=== PATIENT | female | born 1940 | race Caucasian/White ===

== ENCOUNTER → 2018-09-09 15:06 | Outpatient (CLI) | payer MEDICARE, SELFPAY | PROVIDERS: Family Provider Family Medicine; PCP Family Medicine; Referring Provider Family Medicine; Visit Provider Family Medicine | DX: I10 Essential (primary) hypertension (principal); E78.00 Pure hypercholesterolemia, unspecified; E03.9 Hypothyroidism, unspecified | CPT/HCPCS: 36415 ==

== ENCOUNTER → 2019-02-24 | Outpatient (CLI) | payer MEDICARE, SELFPAY ==
--- NOTE | 2019-02-24 10:56 | BI_ITS ---
MAMMOGRAPHY - BILATERAL SCREENING REASON FOR EXAM: Female, 78 years old. Routine annual screening examination. PERTINENT HISTORY: Non-contributory. TECHNIQUE: Digital bilateral breast shanel (3D mammographic acquisition) in the CC and MLO projections. 2-D mediolateral oblique (MLO) and craniocaudad (CC) views of both breasts were obtained. CAD: Full Field Digital Mammography with Computer Added Detection was performed. COMPARISON: Comparison is made with prior examination dated October 10, 2015. FINDINGS: Breast Composition: There are scattered areas of fibroglandular density. There are no dominant masses or suspicious calcifications. Stable small benign-appearing bilateral axillary lymph nodes. No other significant abnormalities are identified. There has been no significant change since the prior study. BI/SCREEN MAMM (CAD) W/SHANEL BILAT IMPRESSION: Stable bilateral screening mammogram. Yearly follow-up mammogram recommended. (A) ASSESSMENT CATEGORY: BIRADS Category 2: Benign. A letter regarding these results will be sent to the patient by the facility within 30 days. Approximately 10% of breast cancers are not detected by mammography. A normal mammogram should not delay biopsy of a clinically suspicious abnormality. [id number] Electronically Signed: Richard Barlow, at 12:41 EDT , Service support ,
== END | disposition home or self-care (01) ==
LOC: OPBI 10:55
PROVIDERS: Family Provider Family Medicine; PCP Family Medicine; Referring Provider Family Medicine; Visit Provider Family Medicine
DX: Z00.00 Encounter for general adult medical examination without abnormal findings (principal); Z12.31 Encounter for screening mammogram for malignant neoplasm of breast
CPT/HCPCS: 77063; 77067

== ENCOUNTER → 2019-04-08 11:33 | Outpatient (CLI) | payer MEDICARE, SELFPAY | PROVIDERS: Family Provider Family Medicine; PCP Family Medicine; Referring Provider Family Medicine; Visit Provider Family Medicine | DX: E78.00 Pure hypercholesterolemia, unspecified (principal); R59.9 Enlarged lymph nodes, unspecified; I10 Essential (primary) hypertension; E03.9 Hypothyroidism, unspecified | CPT/HCPCS: 36415; 80053; 80061; 82043; 82570; 84443 ==

== ENCOUNTER → 2020-01-14 11:30 | Outpatient (CLI) | payer MEDICARE, SELFPAY ==
--- NOTE | 2020-01-14 11:35 | RAD_ITS ---
STUDY: X-RAY - RIGHT HAND REASON FOR EXAM: Female, 79 years old. Polyarthritis TECHNIQUE: Three view(s) of the hand. COMPARISON: None. FINDINGS: Normal radiocarpal articulation. Normal distal radioulnar joint. Normal visualized carpal bones. Normal carpal articulations Normal carpometacarpal articulation of the thumb. Normal second through fifth carpometacarpal joints. Normal metacarpi. Degenerative changes at the metacarpophalangeal joint of the thumb. Normal interphalangeal joint of the thumb. Normal proximal and distal phalanges of the thumb. Normal metacarpophalangeal joints of the second through fifth fingers. Degenerative changes and narrowing and cortical irregularity at the distal interphalangeal joints of the second, third, and fifth fingers. Normal phalanges of the second through fifth fingers. The soft tissue structures are unremarkable. RAD/Hand Min 3 Views IMPRESSION: Degenerative changes with cortical irregularity, more significant at the distal interphalangeal joints of the second, third, and fifth fingers. Electronically Signed: Ray Morales DO at 19:01 EDT Tel [phone], Service support ,
--- NOTE | 2020-01-14 11:35 | RAD_ITS ---
STUDY: X-RAY - LEFT HAND REASON FOR EXAM: Female, 79 years old. Polyarthritis TECHNIQUE: Three view(s) of the hand. COMPARISON: None. FINDINGS: Normal radiocarpal articulation. Normal distal radioulnar joint. Normal visualized carpal bones. Normal carpal articulations There is degenerative arthrosis of the carpometacarpal articulation of the thumb with lateral subluxation of the first metacarpus. Normal second through fifth carpometacarpal joints. Normal metacarpi. Normal metacarpophalangeal joint of the thumb. Normal interphalangeal joint of the thumb. Normal proximal and distal phalanges of the thumb. Normal metacarpophalangeal joints of the second through fifth fingers. There is diffuse articular joint space narrowing of the proximal and distal interphalangeal joints of the second through fifth fingers, but without erosive changes or periarticular soft tissue swelling. Normal phalanges of the second through fifth fingers. Soft tissue swelling overlying the second and third digits. RAD/Hand Min 3 Views IMPRESSION: Degenerative joint disease of the hand and wrist, as described above. Electronically Signed: Richard Barlow, at 8:44 EDT , Service support ,
== END ==
PROVIDERS: PCP Family Medicine; Referring Provider Family Medicine; Visit Provider Family Medicine
DX: M13.0 Polyarthritis, unspecified (principal)
CPT/HCPCS: 36415; 73130; 80053; 86038; 86140; 86431

== ENCOUNTER → 2020-07-26 11:05 | Outpatient (CLI) | payer MEDICARE, SELFPAY | PROVIDERS: PCP Family Medicine; Referring Provider Family Medicine; Visit Provider Family Medicine | DX: E78.00 Pure hypercholesterolemia, unspecified (principal); E03.9 Hypothyroidism, unspecified; I10 Essential (primary) hypertension | CPT/HCPCS: 36415 ==

== ENCOUNTER → 2020-11-14 10:53 | Outpatient (CLI) | payer MEDICARE, SELFPAY ==
[2020-11-14 12:15] LABS: Erythrocyte Sedimentation Rate 9 mm/hr (0-30)
[2020-11-14 12:17] LABS: Hematocrit 44.3 % (37-47); Hemoglobin 14.4 g/dL (12.0-15.0); Mean Corp Hgb Conc 32.5 g/dL (32-36); Mean Corpuscular Hgb 28.1 pg (27.0-32.0); Mean Corpuscular Volume 86.4 fL (81-99); Mean Platelet Vol. 11.5 fl (6.2-12.0); Platelet Count 262 K/mm3 (150-450); RBC Distribution Width SD 44.8 fl (35.1-43.9); Red Blood Count 5.13 M/mm3 (4.2-5.4); White Blood Count 5.7 K/mm3 (4.4-11.0)
[2020-11-14 12:36] LABS: Microalbumin,Random Urine 18.4 mg/L (NO RANGE EST.); Microalbumin:Creatinine Ratio 12.5 mg/g CRE (<30 mg/g CRE)
[2020-11-14 12:46] LABS: ALB/GLOB Ratio 1.1 RATIO (0.9-2.4); AST(SGOT) 20 U/L (15-37); Alanine Aminotransfer ALT/SGPT 29 U/L (13-56); Albumin, Serum 3.7 g/dL (3.2-5.0); Alkaline Phosphatase 92 U/L (45-117); Anion Gap 6 (5-15); BUN 20 mg/dL (7-18); BUN/Creat Ratio 23.7 RATIO (10-20); Calcium,Total 8.8 mg/dL (8.5-10.1); Chloride 109 mmol/L (98-107); Creatinine, Serum 0.84 mg/dL (0.55-1.02); EST Glomerular Filtration Rate 69 mL/min (>60); Est Glom Filt Rate - Afr Amer 84 mL/min (>60); Globulin 3.3 g/dL (2.2-4.2); Glucose 101 mg/dL (74-106); Potassium 3.8 mmol/L (3.5-5.1); Sodium Level 142 mmol/L (136-145)
[2020-11-21 15:58] LABS: Immunoglobulin E 56 IU/mL (6-495)
== END ==
PROVIDERS: PCP Family Medicine; Referring Provider Family Medicine; Visit Provider Family Medicine
DX: R53.83 Other fatigue (principal); J30.2 Other seasonal allergic rhinitis
CPT/HCPCS: 36415; 80053; 82043; 82570; 82785; 84443; 85027; 85652

== ENCOUNTER 2021-09-11 11:59 | Outpatient (CLI) | payer MEDICARE, SELFPAY | END 2021-09-11 23:59 | disposition home or self-care (01) | LOC: MFPLAB 12:00 | PROVIDERS: PCP Family Medicine; Referring Provider Family Medicine; Visit Provider Family Medicine | DX: M62.81 Muscle weakness (generalized) (principal); E66.01 Morbid (severe) obesity due to excess calories; Z68.41 Body mass index [BMI] 40.0-44.9, adult; I10 Essential (primary) hypertension; R73.01 Impaired fasting glucose | CPT/HCPCS: 36415 ==

== ENCOUNTER 2021-10-04 16:05 | Outpatient (CLI) | payer MEDICARE, SELFPAY ==
--- NOTE | 2021-10-04 16:06 | MRI_ITS ---
STUDY: MR Spine Lumbar W/O Contrast 10/04/2021 10:02 PM REASON FOR EXAM: Female, 81 years old. Back pain R quadriceps weakness - subacute, DDD/DJD back. ? L1 impingement Other, Right groin pain and Left posterior hip pain and pain down left leg intermittently. Low back pain. TECHNIQUE: MR Spine Lumbar W/O Contrast Standardized fat and water weighted pulse sequences were obtained. COMPARISON: None FINDINGS: Normal lumbar lordosis. There is no substantial scoliosis. Normal conus medullaris that terminates at the L1. L1-2: Loss of intervertebral disc height. There is endplate spondylosis of the vertebral body. There is bilateral facet arthropathy. Posterior disc herniation. There is bilateral ligamentum flavum thickening. No spinal stenosis. L2-3: Loss of intervertebral disc height. There is endplate spondylosis of the vertebral body. Normal central canal and intervertebral neuroforamina. There is bilateral facet arthropathy. Posterior disc bulge. L3-4: Loss of intervertebral disc height. There is endplate spondylosis of the vertebral body. There is bilateral facet arthropathy. Right neural foraminal stenosis. Compression of exiting nerve roots. Posterior disc herniation. There is bilateral ligamentum flavum thickening. Narrowing of the lateral recess.. L4-5: Loss of intervertebral disc height. There is endplate spondylosis of the vertebral body. There is bilateral facet arthropathy. Left neural foraminal stenosis. Compression of exiting nerve roots. Posterior disc bulge osteophyte complex. Grade 1 anterolisthesis of L4 on L5. Distance measures 6 mm. L5-S1: Loss of intervertebral disc height. There is endplate spondylosis of the vertebral body. There is bilateral facet arthropathy. Bilateral neural foraminal stenosis. Compression of exiting nerve roots. Posterior disc bulge osteophyte complex. Normal visualized sacral ala. Normal visualized paraspinous soft tissue structures. MRI/Spine Lumbar (Routine) IMPRESSION: Multilevel degenerative changes, as described above. Disc herniation at L1-2 and L3-4 as described above. Electronically Signed: Jean-Paul Thornton MD at 22:06 EDT ,
== END 2021-10-04 23:59 | disposition home or self-care (01) ==
LOC: MRI 16:06
PROVIDERS: PCP Family Medicine; Visit Provider Family Medicine
DX: M51.37 Other intervertebral disc degeneration, lumbosacral region (principal); M62.81 Muscle weakness (generalized)
CPT/HCPCS: 72148

== ENCOUNTER → 2021-10-18 | Outpatient (CLI) | payer MEDICARE, SELFPAY ==
[2021-10-18 17:30] LABS: Absolute Neutrophil Count 3.1 X10^3/uL (2.0-7.7); Basophil# 0.09 X10^3/uL; Basophil% 1.3 % (0-1); Eosinophil# 0.42 X10^3/uL; Eosinophils% 6.2 % (0-5); Hemoglobin 13.9 g/dL (12.0-15.0); Lymphocyte % 34.2 % (19-41); Mean Corp Hgb Conc 31.6 g/dL (32-36); Mean Corpuscular Hgb 28.1 pg (27.0-32.0); Mean Corpuscular Volume 88.9 fL (81-99); Mean Platelet Vol. 11.2 fl (6.2-12.0); Monocyte# 0.83 X10^3/uL; Monocyte% 12.3 % (0-10); NRBC Flagged by Analyzer 0 % (0-5); Neutrophil # 3.08 X10^3/uL (2.7-7.7); Neutrophil % 45.9 % (47-70); Platelet Count 301 K/mm3 (150-450); RBC Distribution Width CV 14.3 % (11.6-14.6); RBC Distribution Width SD 46.5 fl (35.1-43.9); Red Blood Count 4.95 M/mm3 (4.2-5.4); White Blood Count 6.7 K/mm3 (4.4-11.0)
[2021-10-18 17:57] LABS: ALB/GLOB Ratio 1.1 RATIO (0.9-2.4); AST(SGOT) 21 U/L (15-37); Alanine Aminotransfer ALT/SGPT 35 U/L (13-56); Albumin, Serum 3.6 g/dL (3.2-5.0); Alkaline Phosphatase 100 U/L (45-117); Anion Gap 6 (5-15); BUN 18 mg/dL (7-18); BUN/Creat Ratio 22.5 RATIO (10-20); Calcium,Total 9.1 mg/dL (8.5-10.1); Chloride 116 mmol/L (98-107); EST Glomerular Filtration Rate 73 mL/min (>60); Est Glom Filt Rate - Afr Amer 89 mL/min (>60); Globulin 3.3 g/dL (2.2-4.2); Glucose 92 mg/dL (74-106); Potassium 3.8 mmol/L (3.5-5.1); Protein, Total 6.9 g/dL (6.4-8.2); Sodium Level 142 mmol/L (136-145)
[2021-10-18 17:58] LABS: Erythrocyte Sedimentation Rate 15 mm/hr (0-30)
== END | disposition home or self-care (01) ==
LOC: MFPLAB 14:25
PROVIDERS: PCP Family Medicine; Referring Provider Family Medicine; Visit Provider Family Medicine
DX: R19.7 Diarrhea, unspecified (principal)
CPT/HCPCS: 36415; 80053; 85025; 85652

== ENCOUNTER → 2021-10-22 | Outpatient (CLI) | payer MEDICARE, SELFPAY ==
[2021-10-29 17:14] LABS: Pancreatic Elastase, Fecal 150 (>200)
[2021-11-02 09:09] LABS: pH, Stool 6.5 (7.0-7.5)
== END | disposition home or self-care (01) ==
LOC: MFPLAB 12:19
PROVIDERS: PCP Family Medicine; Visit Provider Family Medicine
DX: R19.7 Diarrhea, unspecified (principal)
CPT/HCPCS: 82653; 83986; 87177; 87209

== ENCOUNTER → 2021-10-23 | Outpatient (CLI) | payer MEDICARE, SELFPAY | END | disposition home or self-care (01) | LOC: LABSPEC 16:00 | PROVIDERS: PCP Family Medicine; Referring Provider Family Medicine; Visit Provider Family Medicine | DX: R19.7 Diarrhea, unspecified (principal) | CPT/HCPCS: 87177; 87209 ==

== ENCOUNTER → 2021-10-24 | Outpatient (CLI) | payer MEDICARE, SELFPAY | END | disposition home or self-care (01) | LOC: LABSPEC 17:04 | PROVIDERS: PCP Family Medicine; Referring Provider Family Medicine; Visit Provider Family Medicine | DX: R19.7 Diarrhea, unspecified (principal) | CPT/HCPCS: 87177; 87209 ==

== ENCOUNTER 2021-12-27 14:33 | Emergency (ER) | payer MEDICARE, SELFPAY ==
[2021-12-27 14:34] VITALS: BP 158/77; PULSE 88; RESP 16; TEMP 36.4; O2SAT 93; BMI 35.6
[2021-12-27 14:36] VITALS: BP 158/77; PULSE 88; RESP 16; TEMP 36.4; O2SAT 93
--- NOTE | 2021-12-27 15:11 | EKG12_ITS ---
Test Reason : Blood Pressure : / mmHG Vent. Rate : 084 BPM Atrial Rate : 084 BPM P-R Int : 154 ms QRS Dur : 106 ms QT Int : 380 ms P-R-T Axes : 064 -07 044 degrees QTc Int : 449 ms Normal sinus rhythm Minimal voltage criteria for LVH, may be normal variant ( Diaz product ) Poor R wave progression Borderline ECG Confirmed by LARS MONROE, DARCY ([id number]), rewrite editor SHANICE ROSARIO ([id number]) on 12/29/2021 9:28:46 AM Referred By: Confirmed By:DARCY SOUSA MD
[2021-12-27 15:24] LABS: Absolute Lymphocyte Count 1.04 X10^3/uL (0.83-4.51); Absolute Neutrophil Count 6.5 X10^3/uL (2.0-7.7); Basophil# 0.04 X10^3/uL; Basophil% 0.5 % (0-1); Eosinophils% 1.2 % (0-5); Hematocrit 44.8 % (37-47); Hemoglobin 14.7 g/dL (12.0-15.0); Lymphocyte # 1.04 X10^3/ul (0.83-4.51); Lymphocyte % 12.4 % (19-41); Mean Corp Hgb Conc 32.8 g/dL (32-36); Mean Corpuscular Hgb 28.3 pg (27.0-32.0); Mean Corpuscular Volume 86.2 fL (81-99); Mean Platelet Vol. 10.4 fl (6.2-12.0); Monocyte# 0.73 X10^3/uL; Monocyte% 8.7 % (0-10); NRBC Flagged by Analyzer 0 % (0-5); Neutrophil # 6.47 X10^3/uL (2.7-7.7); Neutrophil % 76.7 % (47-70); Platelet Count 285 K/mm3 (150-450); RBC Distribution Width SD 47.4 fl (35.1-43.9); White Blood Count 8.4 K/mm3 (4.4-11.0)
--- NOTE | 2021-12-27 15:26 | EX.ED.DYSGE1 ---
HPI <ARIC Soto - Last Filed: 12/27/21 16:49> History of Present Illness Chief Complaint: Weakness Narrative Narrative: 81-year-old female with PMH of HTN, HLD, hypothyroidism presents with generalized weakness. She states this has been going on for over a month but seemed worse today. She just feels weak all over like she needs to sit and rest and she does not have the energy to do her normal activities. She does not get chest pain or feels short of breath. She has had no recent fever, N/V/D, cough or congestion, abdominal pain, or bladder or bowel symptoms. She has been depressed because she has to sell her house and has nowhere to move. She states she was started on depression medication this week but only took 1 dose because of the side effects. PFSH <ARIC Soto - Last Filed: 12/27/21 16:49> [facility] Medical History (Updated 12/27/21 @ 17:[address] Buzz Rodas MD) DDD (degenerative disc disease) HTN (hypertension) Hypothyroid Home Medications amlodipine 5 mg tablet mg PO 10/31/21 [History Last Taken Unknown] ascorbic acid (vitamin C) 500 mg capsule mg PO 10/31/21 [History Last Taken Unknown] aspirin 81 mg tablet,delayed release 81 mg PO DAILY 10/31/21 [History Last Taken Unknown] cholecalciferol (vitamin D3) 50 mcg (2,000 unit) capsule 50 mcg PO DAILY 10/31/21 [History Last Taken Unknown] coenzyme Q10 100 mg capsule mg PO 10/31/21 [History Last Taken Unknown] levothyroxine 112 mcg tablet mcg PO 10/31/21 [History Last Taken Unknown] rosuvastatin 20 mg tablet mg PO 10/31/21 [History Last Taken Unknown] Allergy/AdvReac Type Severity Reaction Status Date / Time Penicillins Allergy Unknown Unknown Verified 10/31/21 13:03 Social History Smoking Status: Never smoker ROS <ARIC Soto - Last Filed: 12/27/21 16:49> ROS ED ROS Narrative Constitutional: Negative for fever, chills, malaise. Eyes: Negative for visual change. ENT: Negative for sore throat, ear pain, rhinorrhea. CVS: Negative for palpitations, chest pain, syncope. Respiratory: Negative for shortness of breath, cough, orthopnea. GI: Negative for abdominal pain, nausea, vomiting, diarrhea, constipation, melena, hematochezia. : Negative for dysuria, hematuria or frequency. Neuro: Negative for headache, motor/sensory dysfunction. Skin: Negative for rash, abscess, or wound. Musc: Negative for joint pain, swelling, trauma. Heme: Negative for easy bruising, bleeding, lymphadenopathy. EXAM <ARIC Soto - Last Filed: 12/27/21 16:49> Physical Exam Narrative Exam Narrative: CONST: Patient sitting in no acute distress. EYES: Normal inspection. ENT: Normal inspection, moist mucous membranes. NECK: Normal inspection. RESP: No respiratory distress, CTAB. CVS: Regular rate and rhythm, no murmur, no gallop. ABD: Soft and nontender, no guarding or rebound, nondistended. SKIN: Color normal, no rash, warm, dry, intact. EXTREMITIES: Normal appearance, no pedal edema. 5/5 upper and lower extremity strength, 2+ radial and DP pulses NEURO: Oriented x4. PSYCH: Normal affect. Const Vital Signs: 12/27/21 14:34 12/27/21 14:36 12/27/21 15:20 Temperature 97.5 F L 97.5 F L Temperature Source Temporal Temporal Pulse Rate 88 88 Respiratory Rate 16 16 Respiratory Pattern Normal Blood Pressure 158/77 H 158/77 H Blood Pressure Mean 104 104 Pulse Ox 93 93 Oxygen Delivery Method Room Air Room Air <Dr. Buzz Rodas MD - Last Filed: 12/27/21 17:02> Physical Exam Const Vital Signs: 12/27/21 14:34 12/27/21 14:36 12/27/21 15:20 Temperature 97.5 F L 97.5 F L Temperature Source Temporal Temporal Pulse Rate 88 88 Respiratory Rate 16 16 Respiratory Pattern Normal Blood Pressure 158/77 H 158/77 H Blood Pressure Mean 104 104 Pulse Ox 93 93 Oxygen Delivery Method Room Air Room Air MDM <ARIC Soto - Last Filed: 12/27/21 16:49> [facility] MDM Narrative Medical decision making narrative: Patient presented with over a month of generalized weakness with no specific symptoms. States she just does not have energy to do things, feels fatigued, does not want to go outside. She appears well and nontoxic. Afebrile vital signs unremarkable. Medical exam benign. CBC within normal limits, BMP showed potassium of 3.4, otherwise unremarkable. TSH is 0.72 which is normal and means levothyroxine is therapeutic. UA negative. EKG is sinus rhythm with normal intervals and no ischemia. Today there is no metabolic or infectious or cardiac cause of her weakness. As it has been ongoing for over a month and she describes symptoms of anhedonia and states she has been depressed I feel this is a likely possible cause. She was started on depression medication but only took 1 dose due to side effects. I recommended she follow-up with her primary care to discuss alternative medications to try for depression. At this time she is not suicidal or homicidal and there is no indication for admission. Patient was comfortable with this plan and further outpatient work-up and was discharged in stable condition. 1. Generalized weakness I have personally performed a face to face assessment of the patient and have reviewed the RENE Note. I performed a substantive portion of the visit including all aspects of the following. My gross findings include: History is [ ] Exam is [ ] Medical Decision Making [ ] Other additions or changes: [None] Lab Data Labs: Laboratory Results - last 24 hr 12/27/21 12/27/21 12/27/21 15:18 15:18 15:18 WBC 8.4 RBC 5.20 Hgb 14.7 Hct 44.8 MCV 86.2 MCH 28.3 MCHC 32.8 RDW Std Deviation 47.4 H RDW Coeff of Naomie 15.0 H Plt Count 285 MPV 10.4 Immature Gran % (Auto) 0.500 Neut % (Auto) 76.7 H Lymph % (Auto) 12.4 L [place] % (Auto) 8.7 Eos % (Auto) 1.2 Baso % (Auto) 0.5 Absolute Neuts (auto) 6.5 Absolute Lymphs (auto) 1.04 Nucleated RBC % 0 Sodium 140 Potassium 3.4 L Chloride 111 H Carbon Dioxide 21.0 Anion Gap 8 BUN 12 Creatinine 0.83 Estim Creat Clear Calc 45.46 Est GFR (MDRD) Af Amer 85 Est GFR (MDRD) Non-Af 71 BUN/Creatinine Ratio 14.5 Glucose 126 H Calcium 9.6 TSH 0.72 Urine Color Urine Clarity Urine pH Ur Specific Chandler Urine Protein Urine Glucose (UA) Urine Ketones Urine Occult Blood Urine Nitrite Urine Bilirubin Urine Urobilinogen Ur Leukocyte Esterase Urine RBC Urine WBC Ur Squamous Epith Cells Calcium Oxalate Crystal Urine Bacteria Hyaline Casts Fine Granular Casts Coarse Granular Casts RBC Casts Urine Mucus 12/27/21 15:52 WBC RBC Hgb Hct MCV MCH MCHC RDW Std Deviation RDW Coeff of Naomie Plt Count MPV Immature Gran % (Auto) Neut % (Auto) Lymph % (Auto) [place] % (Auto) Eos % (Auto) Baso % (Auto) Absolute Neuts (auto) Absolute Lymphs (auto) Nucleated RBC % Sodium Potassium Chloride Carbon Dioxide Anion Gap BUN Creatinine Estim Creat Clear Calc Est GFR (MDRD) Af Amer Est GFR (MDRD) Non-Af BUN/Creatinine Ratio Glucose Calcium TSH Urine Color Yellow Urine Clarity Clear Urine pH 5.0 Ur Specific Chandler 1.025 Urine Protein 100 H Urine Glucose (UA) Normal Urine Ketones 50 H Urine Occult Blood Negative Urine Nitrite Negative Urine Bilirubin Negative Urine Urobilinogen Normal Ur Leukocyte Esterase 100 H Urine RBC 0 SEEN Urine WBC 0-5 SEEN Ur Squamous Epith Cells 0-5 SEEN Calcium Oxalate Crystal 2+ Urine Bacteria RARE Hyaline Casts 0-5 SEEN Fine Granular Casts 0-5 SEEN Coarse Granular Casts 0-5 SEEN RBC Casts 0-5 SEEN Urine Mucus 0 SEEN Radiography Diagnostic Testing: Clinical Impression(s) from Imaging Studies Chest X-Ray 12/27/21 15:30 IMPRESSION: No radiographic evidence of acute cardiopulmonary disease. Electronically Signed: Derik Spring MD at 16:48 EDT , EKG Initial EKG: Attestation: I personally reviewed and interpreted this EKG as follows: Interpretation: Sinus Rhythm Comments: Normal sinus rhythm at 84 bpm, normal intervals and no ischemic changes <Dr. Buzz Rodas MD - Last Filed: 12/27/21 17:02> [facility] MDM Narrative Medical decision making narrative: Patient presented with over a month of generalized weakness with no specific symptoms. States she just does not have energy to do things, feels fatigued, does not want to go outside. She appears well and nontoxic. Afebrile vital signs unremarkable. Medical exam benign. CBC within normal limits, BMP showed potassium of 3.4, otherwise unremarkable. TSH is 0.72 which is normal and means levothyroxine is therapeutic. UA negative. EKG is sinus rhythm with normal intervals and no ischemia. Today there is no metabolic or infectious or cardiac cause of her weakness. As it has been ongoing for over a month and she describes symptoms of anhedonia and states she has been depressed I feel this is a likely possible cause. She was started on depression medication but only took 1 dose due to side effects. I recommended she follow-up with her primary care to discuss alternative medications to try for depression. At this time she is not suicidal or homicidal and there is no indication for admission. Patient was comfortable with this plan and further outpatient work-up and was discharged in stable condition. 1. Generalized weakness I have personally performed a face to face assessment of the patient and have reviewed the RENE Note. I performed a substantive portion of the visit including all aspects of the following. My gross findings include: History is remarkable for not feeling well, no energy, fatigue, no appetite with weight loss. Patient denies symptoms of hypothyroidism i.e. cold intolerance weight gain constipation etc. She denies constitutional symptoms. She denies headache, ocular, visual or auditory symptoms. She denies cardiac respiratory symptoms. She denies GI symptoms. Denies change in color, consistency or caliber of her stool. She denies urologic symptoms. States she has not had her thyroid level checked in some time. She apparently visits her granddaughters grave daily for the past 2 years. Patient was prescribed antidepressant. However she discontinued on her own accord. Exam is mood and affect are flat to depressed. HEENT exam is unremarkable. Heart lung exams unremarkable. Abdomen is unremarkable. Lower extremity exam is unremarkable. Medical Decision Making this may be due to malignancy, depression, hypothyroidism we will obtain base line blood work for screening. Her work-up is unremarkable. Other additions or changes: Patient was informed that her laboratory studies are unremarkable. She is in agreement this probably is due to her depression. Lab Data Attestation: I reviewed the patient's lab results. Lab results narrative: CBC is unremarkable. There is slight shift with no bandemia. Basic metabolic panel is unremarkable. Potassium is below normal limit at 3.4 and glucose is slightly elevated, 126. Labs: Laboratory Results - last 24 hr 12/27/21 12/27/21 12/27/21 15:18 15:18 15:18 WBC 8.4 RBC 5.20 Hgb 14.7 Hct 44.8 MCV 86.2 MCH 28.3 MCHC 32.8 RDW Std Deviation 47.4 H RDW Coeff of Naomie 15.0 H Plt Count 285 MPV 10.4 Immature Gran % (Auto) 0.500 Neut % (Auto) 76.7 H Lymph % (Auto) 12.4 L [place] % (Auto) 8.7 Eos % (Auto) 1.2 Baso % (Auto) 0.5 Absolute Neuts (auto) 6.5 Absolute Lymphs (auto) 1.04 Nucleated RBC % 0 Sodium 140 Potassium 3.4 L Chloride 111 H Carbon Dioxide 21.0 Anion Gap 8 BUN 12 Creatinine 0.83 Estim Creat Clear Calc 45.46 Est GFR (MDRD) Af Amer 85 Est GFR (MDRD) Non-Af 71 BUN/Creatinine Ratio 14.5 Glucose 126 H Calcium 9.6 TSH 0.72 Urine Color Urine Clarity Urine pH Ur Specific [place] Urine Protein Urine Glucose (UA) Urine Ketones Urine Occult Blood Urine Nitrite Urine Bilirubin Urine Urobilinogen Ur Leukocyte Esterase Urine RBC Urine WBC Ur Squamous Epith Cells Calcium Oxalate Crystal Urine Bacteria Hyaline Casts Fine Granular Casts Coarse Granular Casts RBC Casts Urine Mucus 12/27/21 15:52 WBC RBC Hgb Hct MCV MCH MCHC RDW Std Deviation RDW Coeff of Naomie Plt Count MPV Immature Gran % (Auto) Neut % (Auto) Lymph % (Auto) [place] % (Auto) Eos % (Auto) Baso % (Auto) Absolute Neuts (auto) Absolute Lymphs (auto) Nucleated RBC % Sodium Potassium Chloride Carbon Dioxide Anion Gap BUN Creatinine Estim Creat Clear Calc Est GFR (MDRD) Af Amer Est GFR (MDRD) Non-Af BUN/Creatinine Ratio Glucose Calcium TSH Urine Color Yellow Urine Clarity Clear Urine pH 5.0 Ur Specific [place] 1.025 Urine Protein 100 H Urine Glucose (UA) Normal Urine Ketones 50 H Urine Occult Blood Negative Urine Nitrite Negative Urine Bilirubin Negative Urine Urobilinogen Normal Ur Leukocyte Esterase 100 H Urine RBC 0 SEEN Urine WBC 0-5 SEEN Ur Squamous Epith Cells 0-5 SEEN Calcium Oxalate Crystal 2+ Urine Bacteria RARE Hyaline Casts 0-5 SEEN Fine Granular Casts 0-5 SEEN Coarse Granular Casts 0-5 SEEN RBC Casts 0-5 SEEN Urine Mucus 0 SEEN Radiography Chest X-Ray - ED: 1 View and Read by ED Physician (Single view chest x-ray was independently interpreted by me at 1556 as unremarkable. Cardiac silhouette size unremarkable. Limited in story volume. Lung parenchyma is unremarkable. Perihilar region is unremarkable. Osseous structures reveal no acute process.) Diagnostic Testing: Clinical Impression(s) from Imaging Studies Chest X-Ray 12/27/21 15:30 IMPRESSION: No radiographic evidence of acute cardiopulmonary disease. Electronically Signed: Derik Spring MD at 16:48 EDT , Discharge Plan Triage Chief Complaint: Weakness ED Midlevel Provider: Steffanie Robin ED Provider: Buzz Rodas Dx/Rx/DC Orders Clinical Impression: Weakness, Depression Instructions: ED Weakness (Uncertain Cause) Prescriptions: No Action levothyroxine 112 mcg tablet PO rosuvastatin 20 mg tablet PO amlodipine 5 mg tablet PO coenzyme Q10 100 mg capsule PO aspirin 81 mg tablet,delayed release (DR/EC) 81 mg PO DAILY ascorbic acid (vitamin C) 500 mg capsule PO cholecalciferol (vitamin D3) 50 mcg (2,000 unit) capsule 50 mcg PO DAILY Primary Care Provider: Dylan Renteria Referrals: Dylan Renteria MD [Primary Care Provider] - Activity Restrictions/Additional Instructions: Your blood work here looked normal. Your EKG showed a normal heart rhythm. We have not found a clear cause for your generalized weakness. However you reported stress and lack of interest in doing things and this may be from depression. I would reach out to your family doctor to discuss trying a new medication for depression since you had a side effect from the one you already tried. If any symptoms worsen come back to the ER. Disposition Disposition: Home, Self Care
--- NOTE | 2021-12-27 15:30 | RAD_ITS ---
EXAM: XR CHEST, 1 VIEW CLINICAL INDICATION: weakness TECHNIQUE: Frontal view of the chest. This report was created using [employer] report generation technology. COMPARISON: None. FINDINGS: LUNGS AND PLEURAL SPACES: Unremarkable. No consolidation or edema. No pneumothorax. No effusion. HEART: Unremarkable. Cardiac silhouette not enlarged. MEDIASTINUM: Central airways and mediastinal contour are unremarkable. BONES/JOINTS: Unremarkable. SOFT TISSUES: Unremarkable. RAD/Chest 1 View (Portable) IMPRESSION: No radiographic evidence of acute cardiopulmonary disease. Electronically Signed: Derik Spring MD at 16:48 EDT ,
[2021-12-27 15:50] LABS: Anion Gap 8 (5-15); BUN 12 mg/dL (7-18); BUN/Creat Ratio 14.5 RATIO (10-20); Calcium,Total 9.6 mg/dL (8.5-10.1); Chloride 111 mmol/L (98-107); Creatinine, Serum 0.83 mg/dL (0.55-1.02); EST Glomerular Filtration Rate 71 mL/min (>60); Est Glom Filt Rate - Afr Amer 85 mL/min (>60); Estimated Creatinine Clearance 45.46 ml/min; Glucose 126 mg/dL (74-106); Potassium 3.4 mmol/L (3.5-5.1); Sodium Level 140 mmol/L (136-145)
[2021-12-27 15:56] LABS: Mucous, Urine 0 SEEN /hpf (<or=2+); Red Blood Cells-Urine 0 SEEN /hpf (0-5)
[2021-12-27 16:10] LABS: Glucose, Dipstick Normal (Normal); Ketone-Dipstick 50 mg/dl (Negative); Leukocyte Esterase-Dipstick 100 /ul (Negative); Nitrite-Dipstick Negative (Negative); Occult Blood-Urine Negative /ul (Negative); Protein-Dipstick 100 mg/dl (Negative); Specific Gravity, Urine 1.025 (1.002-1.030); Urine Bilirubin Dipstick Negative (Negative); Urine Urobilinogen Normal (Normal)
[2021-12-27 16:19] LABS: Color, Urine Yellow (Yellow); Urine Clarity Clear (Clear)
[2021-12-27 16:24] LABS: Bacteria RARE /hpf (None Seen); Calcium Oxalate Crystals Ur 2+ /hpf (<or=2+); Squamous Epithelial Cells - UA 0-5 SEEN /hpf (5-10); White Blood Cells 0-5 SEEN /hpf (0-5)
[2021-12-27 16:25] LABS: Hyaline Cast 0-5 SEEN /lpf (0-5)
[2021-12-27 16:26] LABS: Coarse Granular Cast 0-5 SEEN /lpf (0-5 /lpf); Fine Granular Cast- Urine 0-5 SEEN /lpf (0-5); Red Cell Cast 0-5 SEEN /lpf (None Seen)
[2021-12-27 16:39] LABS: Thyroid Stim Hormone (TSH) 0.72 uIU/mL (0.358-3.74)
[2021-12-27 17:00] VITALS: BP 132/76; PULSE 88; RESP 14; TEMP 37.2; O2SAT 99
== END 2021-12-27 17:45 | disposition home or self-care (01) ==
PROVIDERS: Physician Assistant; Emergency Provider Emergency Medicine; PCP Family Medicine; Visit Provider Emergency Medicine
DX: R53.1 Weakness (principal); F32.A Depression, unspecified; E78.5 Hyperlipidemia, unspecified; I10 Essential (primary) hypertension; E03.9 Hypothyroidism, unspecified; Z79.899 Other long term (current) drug therapy; Z79.82 Long term (current) use of aspirin
CPT/HCPCS: 71045; 80048; 81001; 84443; 85025; 93005; 99283

== ENCOUNTER 2021-12-30 13:42 | Emergency (ER) | payer MEDICARE, SELFPAY ==
[2021-12-30 13:43] VITALS: BP 168/81; PULSE 87; RESP 16; TEMP 36.7; O2SAT 94; BMI 35.4
--- NOTE | 2021-12-30 14:02 | EKG12_ITS ---
Test Reason : WEAKNESS Blood Pressure : / mmHG Vent. Rate : 077 BPM Atrial Rate : 077 BPM P-R Int : 166 ms QRS Dur : 110 ms QT Int : 368 ms P-R-T Axes : 050 -16 025 degrees QTc Int : 416 ms Sinus rhythm with occasional Premature ventricular complexes Moderate voltage criteria for LVH, may be normal variant ( R in aVL , Diaz product ) Borderline ECG Confirmed by YULISSA MONROE, LYNDSAY ([id number]), sports editor SHANICE ROSARIO ([id number]) on 01/01/2022 8:46:50 AM Referred By: WILLIAMS Confirmed By:LYNDSAY DUENAS MD
--- NOTE | 2021-12-30 14:02 | CT_ITS ---
STUDY: CT BRAIN WITHOUT CONTRAST REASON FOR EXAM: Female, 81 years old. headache TECHNIQUE: Transaxial CT imaging of the brain was performed without administration of intravenous contrast material. Individualized dose optimization techniques were used for this CT. COMPARISON: None FINDINGS: Normal calvarium. Normal soft tissues. Normal size ventricles and extra-axial spaces for the patient''s age. There are areas of decreased attenuation within the white matter tracts of the supratentorial brain, consistent with microvascular disease changes. Normal basal ganglia and thalami. Normal brainstem. Normal cerebellum. There is no intracranial hemorrhage. There are no findings of an acute ischemic infarction. Normal visualized paranasal sinuses. ASPECTS 10 CT/Brain/Head without Contrast IMPRESSION: There are no acute intracranial findings. Electronically Signed: Jean-Paul Thornton MD at 14:45 EDT ,
--- NOTE | 2021-12-30 14:04 | EDS_ITS ---
HPI History of Present Illness Chief Complaint: Weakness Informant: patient and family Narrative Narrative: Patient complains of generalized decreased energy. Its not really focal weakness. She states she is really not going downstairs to do her laundry but her leg seems strong. Her energy level is down. She is kind of lost interest in her appetite and food although she is able to eat and drink. She has never had nausea vomiting. She has had some intermittent diarrhea but this is been worked up by her primary physician and is no different. She did have some back pain issues that had injections. But she states that seem to get better. She has not had fevers. No known recent vaccines or COVID. She did see her doctor and was started on duloxetine for possible depression but she is not sure why. When her daughter entered the room we get more history. She said they are coming up on the 2-year anniversary of the of the patient's granddaughter in an auto accident. When they talk about this the patient starts crying. She evidently was placed on something for depression back then but never took it. The patient is also worried about selling her house. She has 3 acres with a pool and wants everything to be perfect. She is not sure if she wants to sell. This also brings tears to her eyes. I think that some of her symptoms may be due to depression. [facility] Medical History DDD (degenerative disc disease) HTN (hypertension) Hypothyroid Home Medications amlodipine 5 mg tablet mg PO 10/31/21 [History Last Taken Unknown] ascorbic acid (vitamin C) 500 mg capsule mg PO 10/31/21 [History Last Taken Unknown] aspirin 81 mg tablet,delayed release 81 mg PO DAILY 10/31/21 [History Last Taken Unknown] cholecalciferol (vitamin D3) 50 mcg (2,000 unit) capsule 50 mcg PO DAILY 10/31/21 [History Last Taken Unknown] coenzyme Q10 100 mg capsule mg PO 10/31/21 [History Last Taken Unknown] levothyroxine 112 mcg tablet mcg PO 10/31/21 [History Last Taken Unknown] rosuvastatin 20 mg tablet mg PO 10/31/21 [History Last Taken Unknown] potassium chloride 20 mEq tablet,extended release 20 meq PO DAILY #7 tabs 12/30/21 [Rx Last Taken Unknown] Allergy/AdvReac Type Severity Reaction Status Date / Time Penicillins Allergy Unknown Unknown Verified 12/30/21 13:42 Social History Smoking Status: Never smoker ROS ROS ED Constitutional Constitutional ED: Denies chills, fever(s), sweats or weight loss Eyes Eyes: Denies change in vision ENT ENT ED: Denies rhinorrhea or sore throat Cardiovascular Cardiovascular: Denies chest pain or racing heartbeat Respiratory/Chest Respiratory/Chest: Denies cough, dyspnea or sputum Gastrointestinal Gastrointestinal: Denies diarrhea, nausea or vomiting Genitourinary Genitourinary ED: Denies dysuria or hematuria Musculoskeletal Musculoskeletal: Denies back pain or neck pain Integumentary Denies rash Neurologic Neurologic: Reports other Details: The daughter is concerned that mom is having headaches. The mom denies she is having headaches. She states sometimes her head just feels funny but its not at all painful. The daughter is concerned that she might have bleeding in her head because that is evidently what the patient's father of. ; Denies headache(s) Psychiatric Psychiatric: Reports depression; Denies suicidal ideation Endocrine Endocrinology: Denies polydipsia or polyuria Hematologic/Lymphatic Hematologic/Lymphatic: Denies easy bleeding or easy bruising Allergic/Immunologic Allergic/Immunologic ED: Denies urticaria EXAM Physical Exam Const Vital Signs: 12/30/21 13:43 12/30/21 14:07 12/30/21 16:15 Temperature 98.0 F Temperature Source Temporal Pulse Rate 87 78 Respiratory Rate 16 14 Respiratory Effort Normal Respiratory Pattern Normal Blood Pressure 168/81 H 134/78 H Blood Pressure Mean 110 96 Pulse Ox 94 98 Oxygen Delivery Method Room Air Room Air Positive well nourished and well developed; Negative for unkempt General Appearance ED: well developed and NAD; Negative for unkempt or pallor HEENT Reports moist mucous membranes Negative for trauma or tenderness Eyes PERRL and EOMs intact bilaterally General Eye ED: Negative for pale conjunctiva or scleral icterus Neck no lymphadenopathy and supple Chest Wall inspection of chest normal Resp normal respiratory effort and clear to auscultation bilaterally Auscultation: Negative for rales, rhonchi, wheezes or diminished lung sounds Cardio regular rate, regular rhythm and no murmurs GI normal to inspection, nondistended, normoactive bowel sounds, non-tender and no masses Back/Spine no CVA tenderness Extremity normal to inspection Neuro oriented x3 Sensorium / Orientation: alert; Negative for orientation impaired, lethargic or stuporous Psych Psych Narrative: Mildly flat affect. Occasionally tearful as above Appearance: Negative for unkempt Skin no rashes or lesions noted General Skin Exam: Negative for jaundice or pallor MDM MDM MDM Narrative Medical decision making narrative: Patient CBC is normal. Electrolytes show mildly low potassium. This is replac ed. Glucose is minimally up at 141. I do not think either of these are likely to explain all her symptoms. However, we will get her on potassium replacement for a few days. Urine had some white cells but it was clear and rare bacteria and no UTI symptoms. I will send this for culture but not treated at this time. I explained to the patient that I do not see any physical cause for her overall sense of generalized weakness. We did have crisis see her. They did not have any specific advice. Patient feels that this is physical and not mental or emotional. My concern is that she has 2 major life event issues that are occurring now and stress could certainly cause this. She was just started on antidepressant. But she still needs follow-up. There may be autoimmune or other issues that are contributing to this that I cannot sort out in the emergency department. Lab Data Attestation: I reviewed the patient's lab results. Labs: Laboratory Results - last 24 hr 12/30/21 12/30/21 12/30/21 14:05 14:05 14:05 WBC 8.4 RBC 5.16 Hgb 14.7 Hct 44.7 MCV 86.6 MCH 28.5 MCHC 32.9 RDW Std Deviation 48.8 H RDW Coeff of Naomie 15.5 H Plt Count 308 MPV 10.9 Immature Gran % (Auto) 0.600 Neut % (Auto) 73.1 H Lymph % (Auto) 14.7 L [place] % (Auto) 9.8 Eos % (Auto) 0.8 Baso % (Auto) 1.0 Absolute Neuts (auto) 6.1 Absolute Lymphs (auto) 1.23 Nucleated RBC % 0 Sodium 142 Potassium 3.2 L Chloride 110 H Carbon Dioxide 24.0 Anion Gap 8 BUN 15 Creatinine 0.88 Estim Creat Clear Calc 42.88 Est GFR (MDRD) Af Amer 80 Est GFR (MDRD) Non-Af 66 BUN/Creatinine Ratio 17.1 Glucose 141 H Calcium 9.8 Total Bilirubin 0.40 AST 16 ALT 41 Alkaline Phosphatase 89 Troponin I High Sens 9 Total Protein 6.5 Albumin 3.5 Globulin 3.0 Albumin/Globulin Ratio 1.2 Urine Color Urine Clarity Urine pH Ur Specific [place] Urine Protein Urine Glucose (UA) Urine Ketones Urine Occult Blood Urine Nitrite Urine Bilirubin Urine Urobilinogen Ur Leukocyte Esterase Urine RBC Urine WBC Ur Squamous Epith Cells Uric Acid Crystals Urine Bacteria Urine Mucus Urine Opiates Screen Urine Methadone Screen Ur Barbiturates Screen Ur Phencyclidine Scrn Ur Amphetamines Screen MDMA (Ecstasy) Screen U Benzodiazepines Scrn Urine Cocaine Screen U Cannabinoids Screen Ur Drug Screen Comment Ethyl Alcohol 6.0 COVID-19 (FAR[place]) 12/30/21 12/30/21 12/30/21 14:10 15:00 15:00 WBC RBC Hgb Hct MCV MCH MCHC RDW Std Deviation RDW Coeff of Naomie Plt Count MPV Immature Gran % (Auto) Neut % (Auto) Lymph % (Auto) [place] % (Auto) Eos % (Auto) Baso % (Auto) Absolute Neuts (auto) Absolute Lymphs (auto) Nucleated RBC % Sodium Potassium Chloride Carbon Dioxide Anion Gap BUN Creatinine Estim Creat Clear Calc Est GFR (MDRD) Af Amer Est GFR (MDRD) Non-Af BUN/Creatinine Ratio Glucose Calcium Total Bilirubin AST ALT Alkaline Phosphatase Troponin I High Sens Total Protein Albumin Globulin Albumin/Globulin Ratio Urine Color Yellow Urine Clarity Clear Urine pH 6.0 Ur Specific [place] 1.015 Urine Protein 15 H Urine Glucose (UA) Normal Urine Ketones Negative Urine Occult Blood Negative Urine Nitrite Negative Urine Bilirubin Negative Urine Urobilinogen Normal Ur Leukocyte Esterase 500 H Urine RBC 0 SEEN Urine WBC 10-25 SEEN Ur Squamous Epith Cells 0 SEEN Uric Acid Crystals 0 SEEN Urine Bacteria RARE Urine Mucus 0 SEEN Urine Opiates Screen NEGATIVE Urine Methadone Screen NEGATIVE Ur Barbiturates Screen NEGATIVE Ur Phencyclidine Scrn NEGATIVE Ur Amphetamines Screen NEGATIVE MDMA (Ecstasy) Screen NEGATIVE U Benzodiazepines Scrn NEGATIVE Urine Cocaine Screen NEGATIVE U Cannabinoids Screen NEGATIVE Ur Drug Screen Comment Ethyl Alcohol COVID-19 (FAR[place]) Not Detected Radiography Diagnostic Testing: Clinical Impression(s) from Imaging Studies Brain CT 12/30/21 14:02 IMPRESSION: There are no acute intracranial findings. Electronically Signed: Jean-Paul Thornton MD at 14:45 EDT , EKG Initial EKG: Comments: EKG done for generalized weakness read by me shows sinus rhythm with overall rate of 77. Occasional PVCs. No acute ST elevation or depression. WI interval, QRS duration and QTC normal. EKG is similar to 27 December of this year Discharge Plan Triage Chief Complaint: Weakness ED Provider: Al Brown Dx/Rx/DC Orders Clinical Impression: Weakness Instructions: ED Weakness (Uncertain Cause) Prescriptions: New potassium chloride 20 mEq tablet extended release 20 meq PO DAILY Qty: 7 0RF No Action levothyroxine 112 mcg tablet PO rosuvastatin 20 mg tablet PO amlodipine 5 mg tablet PO coenzyme Q10 100 mg capsule PO aspirin 81 mg tablet,delayed release (DR/EC) 81 mg PO DAILY ascorbic acid (vitamin C) 500 mg capsule PO cholecalciferol (vitamin D3) 50 mcg (2,000 unit) capsule 50 mcg PO DAILY Primary Care Provider: Dylan Renteria Referrals: Dylan Renteria MD [Primary Care Provider] - As soon as possible Disposition Disposition: Home, Self Care
[2021-12-30 14:21] LABS: Absolute Lymphocyte Count 1.23 X10^3/uL (0.83-4.51); Absolute Neutrophil Count 6.1 X10^3/uL (2.0-7.7); Basophil# 0.08 X10^3/uL; Eosinophil# 0.07 X10^3/uL; Eosinophils% 0.8 % (0-5); Hematocrit 44.7 % (37-47); Hemoglobin 14.7 g/dL (12.0-15.0); Lymphocyte # 1.23 X10^3/ul (0.83-4.51); Lymphocyte % 14.7 % (19-41); Mean Corp Hgb Conc 32.9 g/dL (32-36); Mean Corpuscular Hgb 28.5 pg (27.0-32.0); Mean Corpuscular Volume 86.6 fL (81-99); Mean Platelet Vol. 10.9 fl (6.2-12.0); Monocyte# 0.82 X10^3/uL; Monocyte% 9.8 % (0-10); NRBC Flagged by Analyzer 0 % (0-5); Neutrophil # 6.13 X10^3/uL (2.7-7.7); Neutrophil % 73.1 % (47-70); Platelet Count 308 K/mm3 (150-450); RBC Distribution Width CV 15.5 % (11.6-14.6); RBC Distribution Width SD 48.8 fl (35.1-43.9); Red Blood Count 5.16 M/mm3 (4.2-5.4); White Blood Count 8.4 K/mm3 (4.4-11.0)
[2021-12-30 14:35] LABS: ALB/GLOB Ratio 1.2 RATIO (0.9-2.4); AST(SGOT) 16 U/L (15-37); Alanine Aminotransfer ALT/SGPT 41 U/L (13-56); Albumin, Serum 3.5 g/dL (3.2-5.0); Alkaline Phosphatase 89 U/L (45-117); Anion Gap 8 (5-15); BUN 15 mg/dL (7-18); BUN/Creat Ratio 17.1 RATIO (10-20); Calcium,Total 9.8 mg/dL (8.5-10.1); Chloride 110 mmol/L (98-107); Creatinine, Serum 0.88 mg/dL (0.55-1.02); EST Glomerular Filtration Rate 66 mL/min (>60); Est Glom Filt Rate - Afr Amer 80 mL/min (>60); Estimated Creatinine Clearance 42.88 ml/min; Glucose 141 mg/dL (74-106); Potassium 3.2 mmol/L (3.5-5.1); Protein, Total 6.5 g/dL (6.4-8.2); Sodium Level 142 mmol/L (136-145); Troponin-I HS 9 pg/mL (3.0-54.0)
[2021-12-30 15:06] LABS: Mucous, Urine 0 SEEN /hpf (<or=2+); Red Blood Cells-Urine 0 SEEN /hpf (0-5); Squamous Epithelial Cells - UA 0 SEEN /hpf (5-10)
[2021-12-30 15:16] LABS: Color, Urine Yellow (Yellow); Glucose, Dipstick Normal (Normal); Ketone-Dipstick Negative (Negative); Leukocyte Esterase-Dipstick 500 /ul (Negative); Nitrite-Dipstick Negative (Negative); Occult Blood-Urine Negative /ul (Negative); Protein-Dipstick 15 mg/dl (Negative); Specific Gravity, Urine 1.015 (1.002-1.030); Urine Bilirubin Dipstick Negative (Negative); Urine Clarity Clear (Clear); Urine Urobilinogen Normal (Normal)
[2021-12-30] MEDS: Potassium Chloride Oral Tablet 20 MEQ PO (15:16)
[2021-12-30 15:28] LABS: Amphetamine Urine VISTA NEGATIVE (<1000 ng/mL); Barbiturate Urine VISTA NEGATIVE (< 200 ng/mL); Benzodiazepine Urine VISTA NEGATIVE (< 200 ng/mL); Cocaine Urine VISTA NEGATIVE (< 300 ng/mL); Ecstacy Urine VISTA NEGATIVE (< 500 ng/mL); Methadone Urine VISTA NEGATIVE (< 300 ng/mL); PCP Urine VISTA NEGATIVE (< 25 ng/mL); THC Urine VISTA NEGATIVE (< 50 ng/mL); Vista UDS pH Range 6
[2021-12-30 15:31] LABS: Bacteria RARE /hpf (None Seen); Uric Acid Crystals Ur 0 SEEN /hpf (<or=1+); White Blood Cells 10-25 SEEN /hpf (0-5)
--- NOTE | 2021-12-30 15:43 | NURSING ---
faxed chart to crisis
[2021-12-30 16:15] VITALS: BP 134/78; PULSE 78; RESP 14; O2SAT 98
--- NOTE | 2021-12-30 16:20 | NURSING ---
CRISIS IN ROOM
--- NOTE | 2021-12-30 17:16 | ED.RN ---
per crisis pt denies si and help. per family and pt s/s just started in the last 5 days.
[2021-12-30 17:56] VITALS: PULSE 80; RESP 15; O2SAT 97
== END 2021-12-30 17:57 | disposition home or self-care (01) ==
PROVIDERS: Emergency Provider Emergency Medicine; PCP Family Medicine; Visit Provider Emergency Medicine
DX: R53.1 Weakness (principal); I10 Essential (primary) hypertension; F32.A Depression, unspecified; E03.9 Hypothyroidism, unspecified; M19.90 Unspecified osteoarthritis, unspecified site; Z79.82 Long term (current) use of aspirin; Z79.899 Other long term (current) drug therapy; I49.3 Ventricular premature depolarization; R19.7 Diarrhea, unspecified
CPT/HCPCS: 70450; 80053; 80307; 81001; 82077; 84484; 85025; 87086; 87088; 87635; 93005; 96360; 96361; 99283; J7030; A4216; U0003; U0005

== ENCOUNTER → 2021-12-31 | Outpatient (CLI) | payer MEDICARE, SELFPAY ==
[2021-12-31 12:35] LABS: Lyme Ab Screen Interpretation REF LAB
[2021-12-31 15:29] LABS: CRP < 2.90 mg/L (0.0-3.0); Rheumatoid Factor < 10.0 IU/mL (<15)
[2022-01-02 16:16] LABS: ANTINUCLEAR ANTIBODIES DIRECT Negative (Negative)
[2022-01-02 16:57] LABS: Lyme Scn Total Ab w/Rflx Negative (Negative)
== END | disposition home or self-care (01) ==
PROVIDERS: PCP Family Medicine; Referring Provider Family Medicine; Visit Provider Family Medicine
DX: R53.1 Weakness (principal)
CPT/HCPCS: 36415; 86038; 86140; 86431; 86618

== ENCOUNTER → 2022-01-03 | Outpatient (CLI) | payer MEDICARE, SELFPAY | END | disposition home or self-care (01) | LOC: MTLAB 12:42 | PROVIDERS: PCP Family Medicine; Referring Provider Family Medicine; Visit Provider Family Medicine | DX: R78.0 Finding of alcohol in blood (principal) | CPT/HCPCS: 36415; 82077 ==

== ENCOUNTER 2022-01-07 12:11 | Emergency (ER) | payer MEDICARE, SELFPAY ==
[2022-01-07 12:20] VITALS: BP 151/77; PULSE 78; RESP 18; TEMP 36.8; O2SAT 96; BMI 35.4
--- NOTE | 2022-01-07 13:28 | EKG12_ITS ---
Test Reason : weakness Blood Pressure : / mmHG Vent. Rate : 069 BPM Atrial Rate : 069 BPM P-R Int : 160 ms QRS Dur : 102 ms QT Int : 390 ms P-R-T Axes : 065 000 036 degrees QTc Int : 417 ms Normal sinus rhythm Normal ECG Confirmed by LARS MONROE, DARCY ([id number]), newspaper photo editor [address] MCKINNEY ([id number]) on 01/08/2022 10:29:58 AM Referred By: Pineda Confirmed By:DARCY SOUSA MD
--- NOTE | 2022-01-07 13:31 | EX.ED.DYSGE1 ---
HPI History of Present Illness Chief Complaint: Weakness Narrative Narrative: 81-year-old female presenting with generalized fatigue. She was here 12/27/2021 and 12/30/2021. She follow-up with her primary care physician on 01/03/2022. All of her blood work has been fairly unremarkable. They have tested her TSH and this is normal. Her primary care physician currently treated her with 7 days of potassium because her potassium was low however it was only 3.2. Patient does not have any chest pain, shortness of breath, fever, chills. She has no nausea or vomiting. She does admit to some diarrhea. Patient does not have a headache or visual complaints. She states that she is just so tired that she cannot stand long enough to make her own food. She has decreased p.o. intake because of this. [facility] Medical History DDD (degenerative disc disease) HTN (hypertension) Hypothyroid Home Medications amlodipine 5 mg tablet mg PO 10/31/21 [History Last Taken Unknown] ascorbic acid (vitamin C) 500 mg capsule mg PO 10/31/21 [History Last Taken Unknown] aspirin 81 mg tablet,delayed release 81 mg PO DAILY 10/31/21 [History Last Taken Unknown] cholecalciferol (vitamin D3) 50 mcg (2,000 unit) capsule 50 mcg PO DAILY 10/31/21 [History Last Taken Unknown] coenzyme Q10 100 mg capsule mg PO 10/31/21 [History Last Taken Unknown] levothyroxine 112 mcg tablet mcg PO 10/31/21 [History Last Taken Unknown] rosuvastatin 20 mg tablet mg PO 10/31/21 [History Last Taken Unknown] potassium chloride 20 mEq tablet,extended release 20 meq PO DAILY #7 tabs 12/30/21 [Rx Last Taken Unknown] Allergy/AdvReac Type Severity Reaction Status Date / Time Penicillins Allergy Unknown Unknown Verified 01/07/22 12:22 Social History Smoking Status: Never smoker EXAM Physical Exam Const Vital Signs: 01/07/22 12:20 01/07/22 12:28 01/07/22 14:22 Temperature 98.2 F Temperature Source Temporal Pulse Rate 78 73 Respiratory Rate 18 18 Respiratory Effort Normal Respiratory Pattern Normal Blood Pressure 151/77 H 133/60 H Blood Pressure Mean 101 84 Pulse Ox 96 97 Oxygen Delivery Method Room Air Room Air Positive well nourished General Appearance ED: NAD; Negative for pallor HEENT Reports moist mucous membranes Negative for trauma Eyes PERRL and EOMs intact bilaterally General Eye ED: Negative for pale conjunctiva or scleral icterus Chest Wall inspection of chest normal and palpation of chest normal Resp normal respiratory effort and clear to auscultation bilaterally Auscultation: Negative for rales, rhonchi or wheezes Cardio regular rate and regular rhythm GI normal to inspection, nondistended, normoactive bowel sounds Neuro oriented x3 and CN's II-XII intact bilaterally Sensorium / Orientation: alert Motor Exam: strength 5/5 throughout Psych mental status grossly normal Skin no rashes or lesions noted and skin turgor normal General Skin Exam: Negative for jaundice or pallor MDM MDM MDM Narrative Medical decision making narrative: Patient presenting for weakness and this is now her fourth evaluation. I had a long talk with her regarding whether or not she wanted to be admitted for rehab or assisted living because she has been here several times and feels generally fatigued. She does not want this. I spoke with social work who went and spoke with her and they state that she does not want any assistance at home. Blood work is obtained again today and her white blood cell count was 4.1 without lymphopenia. Renal function and electrolytes are normal. High-sensitivity troponin is 10. EKG on my interpretation shows a sinus rhythm with a ventricular rate of 65 bpm. EtOH negative. LFTs are normal. Patient tested positive for COVID-19 today. It is hard to determine when she actually started having the symptoms because the weakness has been going on for weeks. The patient has normal vital signs and normal lab work with exception of the leukopenia. For now I do not think she needs Paxlovid. Patient feels well enough to go home. She states she can care for herself. Return precautions discussed. Impression: 1 COVID-19 2. Leukopenia 3. Generalized weakness Lab Data Attestation: I reviewed the patient's lab results. Labs: Laboratory Results - last 24 hr 01/07/22 01/07/22 01/07/22 13:43 13:43 13:43 WBC 4.1 L RBC 4.98 Hgb 14.0 Hct 43.8 MCV 88.0 MCH 28.1 MCHC 32.0 RDW Std Deviation 50.6 H RDW Coeff of Naomie 15.6 H Plt Count 198 MPV 11.4 Immature Gran % (Auto) 0.200 Neut % (Auto) 66.5 Lymph % (Auto) 20.2 [place] % (Auto) 12.4 H Eos % (Auto) 0.2 Baso % (Auto) 0.5 Absolute Neuts (auto) 2.7 Absolute Lymphs (auto) 0.83 Nucleated RBC % 0 Sodium 140 Potassium 3.6 Chloride 111 H Carbon Dioxide 21.0 Anion Gap 8 BUN 15 Creatinine 0.78 Estim Creat Clear Calc 37.74 Est GFR (MDRD) Af Amer 91 Est GFR (MDRD) Non-Af 76 BUN/Creatinine Ratio 19.2 Glucose 115 H Calcium 8.8 Total Bilirubin 0.40 AST 25 ALT 33 Alkaline Phosphatase 86 Troponin I High Sens 10 Total Protein 6.2 L Albumin 3.1 L Globulin 3.1 Albumin/Globulin Ratio 1.0 Ethyl Alcohol < 3.0 Radiography Diagnostic Testing: Clinical Impression(s) from Imaging Studies Chest X-Ray 01/07/22 13:50 IMPRESSION: No acute abnormality is seen. Electronically Signed: Richard Barlow MD at 14:08 EDT , Discharge Plan Triage Chief Complaint: Weakness ED Provider: Dwain Sung Dx/Rx/DC Orders Prescriptions: No Action levothyroxine 112 mcg tablet PO rosuvastatin 20 mg tablet PO amlodipine 5 mg tablet PO coenzyme Q10 100 mg capsule PO aspirin 81 mg tablet,delayed release (DR/EC) 81 mg PO DAILY ascorbic acid (vitamin C) 500 mg capsule PO cholecalciferol (vitamin D3) 50 mcg (2,000 unit) capsule 50 mcg PO DAILY potassium chloride 20 mEq tablet extended release 20 meq PO DAILY Qty: 7 0RF Primary Care Provider: Dylan Renteria Referrals: Dylan Renteria MD [Primary Care Provider] -
--- NOTE | 2022-01-07 13:50 | RAD_ITS ---
STUDY: X-RAY CHEST REASON FOR EXAM: Female, 81 years old. Weakness TECHNIQUE: Single AP portable view of the chest. COMPARISON: Comparison is made with prior study dated 12/27/2021. FINDINGS: The lungs are clear and expanded. There is no demonstrated pleural abnormality. Normal size heart. Normal mediastinum and gerald. Normal visualized pulmonary arteries. There is atherosclerotic calcification of the aortic arch with tortuosity. There are degenerative changes of the visualized thoracic spine. There is degenerative osteoarthritis of the bilateral shoulders. There is no demonstrated abnormality of the visualized soft tissue structures of the upper abdomen. RAD/Chest 1 View (Portable) IMPRESSION: No acute abnormality is seen. Electronically Signed: Richard Barlow MD at 14:08 EDT ,
[2022-01-07 13:51] LABS: Absolute Lymphocyte Count 0.83 X10^3/uL (0.83-4.51); Absolute Neutrophil Count 2.7 X10^3/uL (2.0-7.7); Basophil# 0.02 X10^3/uL; Basophil% 0.5 % (0-1); Eosinophil# 0.01 X10^3/uL; Eosinophils% 0.2 % (0-5); Hematocrit 43.8 % (37-47); Lymphocyte # 0.83 X10^3/ul (0.83-4.51); Lymphocyte % 20.2 % (19-41); Mean Corpuscular Hgb 28.1 pg (27.0-32.0); Mean Platelet Vol. 11.4 fl (6.2-12.0); Monocyte# 0.51 X10^3/uL; Monocyte% 12.4 % (0-10); NRBC Flagged by Analyzer 0 % (0-5); Neutrophil # 2.72 X10^3/uL (2.7-7.7); Neutrophil % 66.5 % (47-70); Platelet Count 198 K/mm3 (150-450); RBC Distribution Width CV 15.6 % (11.6-14.6); RBC Distribution Width SD 50.6 fl (35.1-43.9); Red Blood Count 4.98 M/mm3 (4.2-5.4); White Blood Count 4.1 K/mm3 (4.4-11.0)
[2022-01-07 14:09] LABS: AST(SGOT) 25 U/L (15-37); Alanine Aminotransfer ALT/SGPT 33 U/L (13-56); Albumin, Serum 3.1 g/dL (3.2-5.0); Alkaline Phosphatase 86 U/L (45-117); Anion Gap 8 (5-15); BUN 15 mg/dL (7-18); BUN/Creat Ratio 19.2 RATIO (10-20); Calcium,Total 8.8 mg/dL (8.5-10.1); Chloride 111 mmol/L (98-107); Creatinine, Serum 0.78 mg/dL (0.55-1.02); EST Glomerular Filtration Rate 76 mL/min (>60); Est Glom Filt Rate - Afr Amer 91 mL/min (>60); Estimated Creatinine Clearance 37.74 ml/min; Globulin 3.1 g/dL (2.2-4.2); Glucose 115 mg/dL (74-106); Potassium 3.6 mmol/L (3.5-5.1); Protein, Total 6.2 g/dL (6.4-8.2); Sodium Level 140 mmol/L (136-145); Troponin-I HS 10 pg/mL (3.0-54.0)
[2022-01-07 14:16] LABS: Alcohol, Blood (Medical)-Serum < 3.0 mg/dL
[2022-01-07] MEDS: 0.9% Normal Saline 1,000 ML 999 ML IV (14:21)
[2022-01-07 14:22] VITALS: BP 133/60; PULSE 73; RESP 18; O2SAT 97
--- NOTE | 2022-01-07 14:28 | CM.ED ---
Social Work Note Reason for Referral: Pt reports to being tired, weak, possibly depressed, not doing well at home. Informant: Dr. Sung SW in to speak with pt. Pt willing to speak to this worker. Pt states that she has been more weak and nauseous lately. Pt states this has been going on for three weeks. Pt states that normally she is independent, states she still drives. Pt states that she has a pool at home that her family likes to enjoy. Pt states that she lives alone but has supportive neighbors and good family. Pt states that for fun, she likes to drive to [facility] and hang out with her family. Pt states she still has some younger grandchildren, ages 3,5,10,12. Pt states that they live close and they like to come over to use her pool. Pt states that she is kept pretty busy. Pt states that she just hasn't felt like doing much lately. Pt attributes this to not feeling well. Pt states that she has normally pretty healthy and doesn't usually get sick. Pt states that she hasn't felt good enough to do things. Pt states that she has not felt like this before in her life. Pt states that she does get injections in back. Pt states that she has no mental health history. Pt denied any suicidal or homicidal thoughts. Pt states she has felt like she has not mendoza any energy lately. Pt states that she has had a poor appetite. Pt denied any feelings of hopeless, worthless, useless. Pt denied any feelings about feeling bad about herself. Pt denied any trouble concentrating on things. Pt states that she does have too move quickly when she has to go to the bathroom because she feels so weak. Pt states that she has not been able to see her family as much lately because she doesn't know what is causing her to be sick. Pt states that she has been able to finally start watching TV. SW spoke with pt about community resources and pt denied needing any community resources. Pt states that she has family that is able to help. Pt denied additional needs or concerns at this time. Melissa Anne CYANIDE FURNACE OPERATOR, EMPLOYMENT SPECIALIST/PROGRAM MANAGER
[2022-01-07 16:18] VITALS: BP 133/60; PULSE 73; RESP 18; O2SAT 98
== END 2022-01-07 16:23 | disposition home or self-care (01) ==
PROVIDERS: Emergency Provider Student in an Organized Health Care Education/Training Program; PCP Family Medicine; Visit Provider Student in an Organized Health Care Education/Training Program
DX: U07.1 COVID-19 (principal); I10 Essential (primary) hypertension; E03.9 Hypothyroidism, unspecified; Z79.899 Other long term (current) drug therapy; Z79.82 Long term (current) use of aspirin
CPT/HCPCS: 71045; 80053; 82077; 84484; 85025; 87428; 93005; 96360; 96361; 99285; J7030

== ENCOUNTER 2022-01-14 17:37 | Inpatient (IN) | payer MEDICARE, SELFPAY ==
[2022-01-14 17:38] VITALS: BP 160/92; PULSE 103; RESP 16; TEMP 36.3; O2SAT 95; BMI 35.4
--- NOTE | 2022-01-14 18:10 | EKG12_ITS ---
Test Reason : DYSRHYTHMIA Blood Pressure : / mmHG Vent. Rate : 087 BPM Atrial Rate : 087 BPM P-R Int : 160 ms QRS Dur : 106 ms QT Int : 374 ms P-R-T Axes : 047 -10 027 degrees QTc Int : 450 ms Normal sinus rhythm Normal ECG Confirmed by LARS MONROE, DARCY ([id number]), newspaper photo editor SHANICE ROSARIO ([id number]) on 01/15/2022 11:38:49 AM Referred By: DC Confirmed By:DARCY SOUSA MD
--- NOTE | 2022-01-14 18:13 | EX.ED.DYSGE1 ---
HPI History of Present Illness Chief Complaint: Weakness Informant: patient and family Onset/Context/Timing Onset: Weeks Quality: Weakness Location: Generalized Maximum Severity: Severe Worsened by: Exertion Relieved by: Nothing Narrative Narrative: Patient has been feeling ill for several weeks. About a week ago, she was diagnosed with COVID-19. She also had low potassium and has had ongoing headaches as well as chest pain. She contacted her family doctor who advised her to come to the ED for admission for placement, possibly in rehab. Associated symptoms include chills, diarrhea, decreased oral intake, trouble with ambulation. She is too weak to get to the bathroom. Recent Illness/Hospitalization: Yes [facility] Medical History DDD (degenerative disc disease) HTN (hypertension) Hypothyroid Home Medications amlodipine 5 mg tablet mg PO 10/31/21 [History Last Taken Unknown] ascorbic acid (vitamin C) 500 mg capsule mg PO 10/31/21 [History Last Taken Unknown] aspirin 81 mg tablet,delayed release 81 mg PO DAILY 10/31/21 [History Last Taken Unknown] cholecalciferol (vitamin D3) 50 mcg (2,000 unit) capsule 50 mcg PO DAILY 10/31/21 [History Last Taken Unknown] coenzyme Q10 100 mg capsule mg PO 10/31/21 [History Last Taken Unknown] levothyroxine 112 mcg tablet mcg PO 10/31/21 [History Last Taken Unknown] rosuvastatin 20 mg tablet mg PO 10/31/21 [History Last Taken Unknown] potassium chloride 20 mEq tablet,extended release 20 meq PO DAILY #7 tabs 12/30/21 [Rx Last Taken Unknown] ondansetron 4 mg disintegrating tablet 4 mg PO Q8H PRN nausea and vomiting #10 tabs 01/07/22 [Rx Last Taken Unknown] Allergy/AdvReac Type Severity Reaction Status Date / Time Penicillins Allergy Unknown Unknown Verified 01/14/22 17:40 Social History Smoking Status: Never smoker ROS ROS ED Constitutional Constitutional ED: Reports chills Eyes Eyes: Denies blurry vision ENT ENT ED: Denies ear pain Cardiovascular Cardiovascular: Reports chest pain Respiratory/Chest Respiratory/Chest: Reports cough and dyspnea Gastrointestinal Gastrointestinal: Reports diarrhea; Denies abdominal pain or vomiting Genitourinary Genitourinary ED: Denies dysuria Musculoskeletal Musculoskeletal: Denies arthralgias Integumentary Denies abscess Neurologic Neurologic: Reports headache(s) Psychiatric Psychiatric: Denies anxiety Endocrine Endocrinology: Denies cold intolerance Hematologic/Lymphatic Hematologic/Lymphatic: Reports systems reviewed and no addt'l complaints, except as documented Allergic/Immunologic Allergic/Immunologic ED: Denies mouth swelling EXAM Physical Exam Const Vital Signs: 01/14/22 17:38 01/14/22 17:56 Temperature 97.3 F L Temperature Source Temporal Pulse Rate 103 H Respiratory Rate 16 Respiratory Effort Normal Respiratory Pattern Normal Blood Pressure 160/92 H Blood Pressure Mean 114 Pulse Ox 95 Oxygen Delivery Method Room Air Positive well nourished and well developed General Appearance ED: well developed HEENT Reports moist mucous membranes Negative for trauma Eyes EOMs intact bilaterally Neck supple Resp normal respiratory effort and clear to auscultation bilaterally Cardio regular rate and regular rhythm GI normal to inspection, nondistended, normoactive bowel sounds Extremity normal to inspection Neuro oriented x3 and CN's II-XII intact bilaterally Sensorium / Orientation: alert Psych Mood & Affect: depressed Skin no rashes or lesions noted MDM MDM MDM Narrative Medical decision making narrative: EKG shows sinus rhythm at a rate of 87. No sign of ischemia or infarction pattern. This was interpreted by me. Chest x-ray was interpreted by the radiologist and myself and showed no acute abnormalities. Patient has many symptoms and they have been going on for several weeks. I am not sure how to link them altogether. I am concerned she has some depression. She is taking Cymbalta but its not helping. I did look for an organic cause. I reviewed her prior records. She had a culture that showed possible contamination and she was treated with a dose of Levaquin. Her urinalysis here however was unremarkable. Her EKG and chest x-ray as above were unremarkable. She is complaining of a headache and her head CT was unremarkable. Labs, as below were reviewed. She is not septic. Her potassium is low and this was replaced. The remainder of her labs were all fairly unremarkable. Patient is interested in placement for rehabilitation. I did replace her potassium and contacted the hospitalist. She will be admitted for observation to the PCU. Impression #1 generalized weakness. Impression #2 hypokalemia Lab Data Attestation: I reviewed the patient's lab results. Labs: Laboratory Results - last 24 hr 01/14/22 01/14/22 01/14/22 18:35 18:40 18:40 WBC 6.6 RBC 5.57 H Hgb 15.6 H Hct 47.4 H MCV 85.1 MCH 28.0 MCHC 32.9 RDW Std Deviation 47.6 H RDW Coeff of Naomie 15.4 H Plt Count 269 MPV 11.8 Immature Gran % (Auto) 0.600 Neut % (Auto) 64.1 Lymph % (Auto) 22.8 Mcculloch % (Auto) 10.6 H Eos % (Auto) 1.4 Baso % (Auto) 0.5 Absolute Neuts (auto) 4.2 Absolute Lymphs (auto) 1.50 Nucleated RBC % 0 PT 12.7 INR 1.0 APTT 26.3 Sodium Potassium Chloride Carbon Dioxide Anion Gap BUN Creatinine Estim Creat Clear Calc Est GFR (MDRD) Af Amer Est GFR (MDRD) Non-Af BUN/Creatinine Ratio Glucose Calcium Total Bilirubin AST ALT Alkaline Phosphatase Troponin I High Sens Total Protein Albumin Globulin Albumin/Globulin Ratio TSH Urine Color Yellow Urine Clarity Clear Urine pH 5.0 Ur Specific [place] 1.020 Urine Protein 30 H Urine Glucose (UA) Normal Urine Ketones 50 H Urine Occult Blood Negative Urine Nitrite Negative Urine Bilirubin 1 H Urine Urobilinogen 1 H Ur Leukocyte Esterase 25 H Urine RBC 0 SEEN Urine WBC 0 SEEN Ur Squamous Epith Cells 0 SEEN Urine Bacteria 2+ Hyaline Casts 5-10 SEEN Fine Granular Casts 5-10 SEEN WBC Casts 0-5 SEEN Urine Mucus 0 SEEN 01/14/22 18:40 WBC RBC Hgb Hct MCV MCH MCHC RDW Std Deviation RDW Coeff of Naomie Plt Count MPV Immature Gran % (Auto) Neut % (Auto) Lymph % (Auto) Mcculloch % (Auto) Eos % (Auto) Baso % (Auto) Absolute Neuts (auto) Absolute Lymphs (auto) Nucleated RBC % PT INR APTT Sodium 139 Potassium 2.8 L Chloride 111 H Carbon Dioxide 20.0 L Anion Gap 8 BUN 15 Creatinine 0.77 Estim Creat Clear Calc 37.74 Est GFR (MDRD) Af Amer 92 Est GFR (MDRD) Non-Af 76 BUN/Creatinine Ratio 19.4 Glucose 124 H Calcium 9.5 Total Bilirubin 0.60 AST 21 ALT 37 Alkaline Phosphatase 94 Troponin I High Sens 12 Total Protein 6.6 Albumin 3.4 Globulin 3.2 Albumin/Globulin Ratio 1.1 TSH 0.48 Urine Color Urine Clarity Urine pH Ur Specific [place] Urine Protein Urine Glucose (UA) Urine Ketones Urine Occult Blood Urine Nitrite Urine Bilirubin Urine Urobilinogen Ur Leukocyte Esterase Urine RBC Urine WBC Ur Squamous Epith Cells Urine Bacteria Hyaline Casts Fine Granular Casts WBC Casts Urine Mucus Radiography Diagnostic Testing: Clinical Impression(s) from Imaging Studies Brain CT 01/14/22 18:18 IMPRESSION: No acute intracranial or calvarial abnormality. No major interval change. Electronically Signed: Jim Urias DO at 19:56 EDT Reading Location ID and State: [address] [place] [address] Tel [phone], Service support , Chest X-Ray 01/14/22 19:04 IMPRESSION: Degenerative changes, as described above. No demonstrated acute cardiopulmonary process. No major interval change. Electronically Signed: Jim Urias DO at 20:20 EDT Reading Location ID and State: [address] [place] [address] Tel [phone], Service support , Discharge Plan Triage Chief Complaint: Weakness ED Provider: Jacob Wiggins Dx/Rx/DC Orders Prescriptions: No Action levothyroxine 112 mcg tablet PO rosuvastatin 20 mg tablet PO amlodipine 5 mg tablet PO coenzyme Q10 100 mg capsule PO aspirin 81 mg tablet,delayed release (DR/EC) 81 mg PO DAILY ascorbic acid (vitamin C) 500 mg capsule PO cholecalciferol (vitamin D3) 50 mcg (2,000 unit) capsule 50 mcg PO DAILY potassium chloride 20 mEq tablet extended release 20 meq PO DAILY Qty: 7 0RF ondansetron 4 mg tablet,disintegrating 4 mg PO Q8H PRN (Reason: nausea and vomiting) Qty: 10 0RF Primary Care Provider: Dylan Renteria Referrals: Dylan Renteria MD [Primary Care Provider] -
--- NOTE | 2022-01-14 18:18 | CT_ITS ---
STUDY: CT BRAIN WITHOUT CONTRAST REASON FOR EXAM: Female, 81 years old. Headache. Weakness. COVID positive. RADIATION DOSAGE (If Supplied By Facility): CTDIvol = ( 44.99 ) mGy, DLP = ( 779.24 ) mGycm TECHNIQUE: Transaxial CT imaging of the brain was performed without administration of intravenous contrast material. Individualized dose optimization techniques were used for this CT. COMPARISON: 12/30/2021. FINDINGS: Normal soft tissue structures. Normal calvarium. Normal size ventricles and extra-axial spaces for the patient''s age. Normal white matter tracts of the cerebral hemispheres. Normal basal ganglia and thalami. Normal brainstem. Normal cerebellum. There is no intracranial hemorrhage. There are no findings of an acute ischemic infarction. Normal visualized paranasal sinuses. CT/Brain/Head without Contrast IMPRESSION: No acute intracranial or calvarial abnormality. No major interval change. Electronically Signed: Jim Urias DO at 19:56 EDT ,
[2022-01-14] MEDS: 0.9% Normal Saline 1,000 ML 1000 ML IV (18:47)
[2022-01-14] MEDS: levoFLOXacin IV 750 MG/150 ML BAG 100 MG IV (18:55)
--- NOTE | 2022-01-14 19:04 | RAD_ITS ---
STUDY: X-RAY CHEST REASON FOR EXAM: Female, 81 years old. Weakness. Not eating. Chest pain and confusion. Dyspnea. COVID. TECHNIQUE: Single AP portable view of the chest. COMPARISON: 01/07/2022. FINDINGS: The lungs are clear and expanded. There is no demonstrated pleural abnormality. Normal size heart. Normal mediastinum and gerald. Normal visualized pulmonary arteries. Normal visualized aortic arch and descending thoracic aorta. There are diffuse degenerative changes of the visualized thoracic spine. Normal visualized ribs, clavicles, and shoulders. There is no demonstrated abnormality of the visualized soft tissue structures of the upper abdomen. RAD/Chest 1 View (Portable) IMPRESSION: Degenerative changes, as described above. No demonstrated acute cardiopulmonary process. No major interval change. Electronically Signed: Jim Urias DO at 20:20 EDT ,
[2022-01-14 19:10] LABS: Mucous, Urine 0 SEEN /hpf (<or=2+); Red Blood Cells-Urine 0 SEEN /hpf (0-5); Squamous Epithelial Cells - UA 0 SEEN /hpf (5-10); White Blood Cells 0 SEEN /hpf (0-5)
[2022-01-14 19:17] LABS: Absolute Neutrophil Count 4.2 X10^3/uL (2.0-7.7); Basophil# 0.03 X10^3/uL; Basophil% 0.5 % (0-1); Eosinophil# 0.09 X10^3/uL; Eosinophils% 1.4 % (0-5); Hematocrit 47.4 % (37-47); Hemoglobin 15.6 g/dL (12.0-15.0); Lymphocyte % 22.8 % (19-41); Mean Corp Hgb Conc 32.9 g/dL (32-36); Mean Corpuscular Volume 85.1 fL (81-99); Mean Platelet Vol. 11.8 fl (6.2-12.0); Monocyte% 10.6 % (0-10); NRBC Flagged by Analyzer 0 % (0-5); Neutrophil # 4.23 X10^3/uL (2.7-7.7); Neutrophil % 64.1 % (47-70); Platelet Count 269 K/mm3 (150-450); RBC Distribution Width CV 15.4 % (11.6-14.6); RBC Distribution Width SD 47.6 fl (35.1-43.9); Red Blood Count 5.57 M/mm3 (4.2-5.4); White Blood Count 6.6 K/mm3 (4.4-11.0)
[2022-01-14 19:27] LABS: Prothrombin Time (Protime)PT. 12.7 SECONDS (11.7-14.9)
[2022-01-14 19:28] LABS: Partial Thromboplast Time 26.3 Seconds (24.1-36.2)
[2022-01-14 19:30] LABS: Color, Urine Yellow (Yellow); Glucose, Dipstick Normal (Normal); Ketone-Dipstick 50 mg/dl (Negative); Leukocyte Esterase-Dipstick 25 /ul (Negative); Nitrite-Dipstick Negative (Negative); Occult Blood-Urine Negative /ul (Negative); Protein-Dipstick 30 mg/dl (Negative); Urine Clarity Clear (Clear); Urine Urobilinogen 1 mg/dl (Normal)
[2022-01-14 19:32] LABS: Urine Bilirubin Dipstick 1 mg/dL (Negative)
[2022-01-14 19:44] LABS: ALB/GLOB Ratio 1.1 RATIO (0.9-2.4); AST(SGOT) 21 U/L (15-37); Alanine Aminotransfer ALT/SGPT 37 U/L (13-56); Albumin, Serum 3.4 g/dL (3.2-5.0); Alkaline Phosphatase 94 U/L (45-117); Anion Gap 8 (5-15); BUN 15 mg/dL (7-18); BUN/Creat Ratio 19.4 RATIO (10-20); Calcium,Total 9.5 mg/dL (8.5-10.1); Chloride 111 mmol/L (98-107); Creatinine, Serum 0.77 mg/dL (0.55-1.02); EST Glomerular Filtration Rate 76 mL/min (>60); Est Glom Filt Rate - Afr Amer 92 mL/min (>60); Estimated Creatinine Clearance 37.74 ml/min; Globulin 3.2 g/dL (2.2-4.2); Glucose 124 mg/dL (74-106); Potassium 2.8 mmol/L (3.5-5.1); Protein, Total 6.6 g/dL (6.4-8.2); Sodium Level 139 mmol/L (136-145); Thyroid Stim Hormone (TSH) 0.48 uIU/mL (0.358-3.74); Troponin-I HS 12 pg/mL (3.0-54.0)
[2022-01-14 19:49] LABS: Bacteria 2+ /hpf (None Seen)
[2022-01-14 19:50] LABS: Fine Granular Cast- Urine 5-10 SEEN /lpf (0-5); Hyaline Cast 5-10 SEEN /lpf (0-5)
[2022-01-14 19:51] LABS: White Cell Cast 0-5 SEEN /lpf (None Seen)
[2022-01-14 21:37] VITALS: BP 157/73; PULSE 77; RESP 18; O2SAT 91
[2022-01-14 22:18] VITALS: BP 156/80; PULSE 78; RESP 18; TEMP 36.6; O2SAT 91
--- NOTE | 2022-01-14 22:19 | PCM.HP.STD ---
HPI - General General Date of Admission: 01/14/22 Date of Service: 01/14/22 Chief Complaint: weakness HPI Narrative ENRIQUE GILLETTE, is a 81 F who presents to the emergency room with chief complaint of weakness. Onset of symptoms began approximately 4 weeks ago and she has progressively lost her strength and become weak. Patient was diagnosed with COVID with a positive test 7 days ago and was unvaccinated however she had no respiratory symptoms to speak of and denies being short of breath currently. She states every time she drinks a sip of water she has diarrhea. She has a good appetite but is afraid to eat because of the persistent recurrent diarrhea. She denies any nausea or vomiting. She is on acetazolamide by her primary care physician and her laboratory value of potassium was found to be low. She will be admitted for hypokalemia and evaluated for diarrhea and will need rehab facility for conditioning. [facility] Medical History (Updated 01/14/22 @ 22:[address] Andrew Melchor MD) DDD (degenerative disc disease) HTN (hypertension) Hypothyroid Home Medications amlodipine 5 mg tablet mg PO 10/31/21 [History Last Taken Unknown] ascorbic acid (vitamin C) 500 mg capsule mg PO 10/31/21 [History Last Taken Unknown] aspirin 81 mg tablet,delayed release 81 mg PO DAILY 10/31/21 [History Last Taken Unknown] cholecalciferol (vitamin D3) 50 mcg (2,000 unit) capsule 50 mcg PO DAILY 10/31/21 [History Last Taken Unknown] coenzyme Q10 100 mg capsule mg PO 10/31/21 [History Last Taken Unknown] levothyroxine 112 mcg tablet mcg PO 10/31/21 [History Last Taken Unknown] rosuvastatin 20 mg tablet mg PO 10/31/21 [History Last Taken Unknown] potassium chloride 20 mEq tablet,extended release 20 meq PO DAILY #7 tabs 12/30/21 [Rx Last Taken Unknown] ondansetron 4 mg disintegrating tablet 4 mg PO Q8H PRN nausea and vomiting #10 tabs 01/07/22 [Rx Last Taken Unknown] Allergy/AdvReac Type Severity Reaction Status Date / Time Penicillins Allergy Unknown Unknown Verified 01/14/22 17:40 Social History Smoking Status: Never smoker ROS Constitutional Constitutional: Reports malaise and weakness; Denies anorexia, chills or fever(s) Eyes Eyes: Denies change in vision ENT HEENT: Denies abnormal hearing Cardiovascular Cardiovascular: Denies chest pain Respiratory/Chest Respiratory/Chest: Denies cough or shortness of breath at rest Gastrointestinal Gastrointestinal: Reports diarrhea; Denies abdominal pain Genitourinary Genitourinary: Denies dysuria Musculoskeletal Musculoskeletal: Denies back pain Integumentary Integumentary: Denies dry skin Neurologic Neurologic: Denies confusion Psychiatric Psychiatric: Reports anxiety Vital Signs Vital Signs Vital Signs: 01/14/22 17:38 01/14/22 17:56 01/14/22 21:37 Temperature 97.3 F L Temperature Source Temporal Pulse Rate 103 H 77 Respiratory Rate 16 18 Respiratory Effort Normal Respiratory Pattern Normal Blood Pressure 160/92 H 157/73 H Blood Pressure Mean 114 101 Pulse Ox 95 91 Oxygen Delivery Method Room Air Weight Weight: 200 lb Body Mass Index (BMI) 35.4 Physical Exam Const oriented x3 Orientation / Consciousness: lethargic HEENT normocephalic and head/scalp atraumatic Eyes PERRL Neck supple Resp normal respiratory effort and normal air movement Cardio regular rate, regular rhythm, S1 normal heart sound and S2 normal heart sound GI soft to palpation and non-tender Extremity normal capillary refill Skin General Skin Exam: no breakdown Neuro CN's II-XII intact bilaterally Speech: speech normal Psych cooperative Appearance: appropriate Mood & Affect: depressed Results Lab / Micro Data Result Diagrams: 01/14/22 18:40 01/14/22 18:40 Labs: Laboratory Results - last 24 hr 01/14/22 18:35: Urine Color Yellow, Urine Clarity Clear, Urine pH 5.0, Ur Specific [place] 1.020, Urine Protein 30 H, Urine Glucose (UA) Normal, Urine Ketones 50 H, Urine Occult Blood Negative, Urine Nitrite Negative, Urine Bilirubin 1 H, Urine Urobilinogen 1 H, Ur Leukocyte Esterase 25 H, Urine RBC 0 SEEN, Urine WBC 0 SEEN, Ur Squamous Epith Cells 0 SEEN, Urine Bacteria 2+, Hyaline Casts 5-10 SEEN, Fine Granular Casts 5-10 SEEN, WBC Casts 0-5 SEEN, Urine Mucus 0 SEEN 01/14/22 18:40: WBC 6.6, RBC 5.57 H, Hgb 15.6 H, Hct 47.4 H, MCV 85.1, MCH 28.0, MCHC 32.9, RDW Std Deviation 47.6 H, RDW Coeff of Naomie 15.4 H, Plt Count 269, MPV 11.8, Immature Gran % (Auto) 0.600, Neut % (Auto) 64.1, Lymph % (Auto) 22.8, Maverick % (Auto) 10.6 H, Eos % (Auto) 1.4, Baso % (Auto) 0.5, Absolute Neuts (auto) 4.2, Absolute Lymphs (auto) 1.50, Nucleated RBC % 0 01/14/22 18:40: PT 12.7, INR 1.0, APTT 26.3 01/14/22 18:40: Sodium 139, Potassium 2.8 L, Chloride 111 H, Carbon Dioxide 20.0 L, Anion Gap 8, BUN 15, Creatinine 0.77, Estim Creat Clear Calc 37.74, Est GFR (MDRD) Af Amer 92, Est GFR (MDRD) Non-Af 76, BUN/Creatinine Ratio 19.4, Glucose 124 H, Calcium 9.5, Total Bilirubin 0.60, AST 21, ALT 37, Alkaline Phosphatase 94, Troponin I High Sens 12, Total Protein 6.6, Albumin 3.4, Globulin 3.2, Albumin/Globulin Ratio 1.1, TSH 0.[address] 01/14/22 18:18 IMPRESSION: No acute intracranial or calvarial abnormality. No major interval change. Electronically Signed: Jim Urias DO at 19:56 EDT Reading Location ID and State: [facility] / [place] Tel [phone], Service support , Chest X-Ray 01/14/22 19:04 IMPRESSION: Degenerative changes, as described above. No demonstrated acute cardiopulmonary process. No major interval change. Electronically Signed: Jim NatickDO [email or web address] at 20:20 EDT Reading Location ID and State: [facility] / [place] Tel [phone], Service support , Assessment & Plan Assessment/Plan (1) Hypokalemia: (2) Diarrhea: (3) Debility: PLAN: Plan 1. Hypokalemia?admit patient to progressive care unit, replace potassium repeat BMP in the morning hold acetazolamide 2. Diarrhea?stool culture and check for C. difficile 3. Debility?PT OT evaluate and treat 4. DVT prophylaxis?low molecular weight heparin Patient will need discharge planning for rehab facility Charges/Coding Visit Charges Inpatient E&M: 62521 Init Hosp L2
[2022-01-14 23:29] VITALS: BMI 34.4
[2022-01-14 23:30] VITALS: BP 172/84; PULSE 72; RESP 16; TEMP 36.4; O2SAT 97
[2022-01-15] VITALS (9 sets, daily range): BP systolic 126–165; BP diastolic 66–84; PULSE 75–97; RESP 16–18; TEMP 36.6–37.2; O2SAT 94–97
[2022-01-15] MEDS: KCL 40mEq in 0.9% NS 40 MEQ/1,000 ML IV.SOLN 125 MEQ IV ×3 (00:07→16:53)
[2022-01-15] MEDS: MELATONIN 10 MG TABLET 5 MG PO (01:23)
[2022-01-15] MEDS: Ondansetron ODT 4 MG Tablet PO ×2 (01:23→11:11)
--- NOTE | 2022-01-15 01:28 | NURSING ---
Pt requested sleeping aide, discussed with Dr. Melchor. States since she is a new admit ok for a sleeper, melatonin 5 mg x1. Discussed home medications. Physician states to only continue the synthroid for now and the rest can be addressed later today.
[2022-01-15] MEDS: Levothyroxine 112 MCG Tablet PO (05:34)
[2022-01-15] MEDS: 0.9% Saline Lock 10 ML Syringe IV (05:34)
[2022-01-15 05:43] LABS: Absolute Lymphocyte Count 1.32 X10^3/uL (0.83-4.51); Absolute Neutrophil Count 3.1 X10^3/uL (2.0-7.7); Basophil# 0.02 X10^3/uL; Basophil% 0.4 % (0-1); Eosinophil# 0.14 X10^3/uL; Eosinophils% 2.6 % (0-5); Hematocrit 41.5 % (37-47); Lymphocyte # 1.32 X10^3/ul (0.83-4.51); Lymphocyte % 24.4 % (19-41); Mean Corp Hgb Conc 33.7 g/dL (32-36); Mean Corpuscular Hgb 28.7 pg (27.0-32.0); Mean Platelet Vol. 11.6 fl (6.2-12.0); Monocyte# 0.79 X10^3/uL; Monocyte% 14.6 % (0-10); NRBC Flagged by Analyzer 0 % (0-5); Neutrophil # 3.12 X10^3/uL (2.7-7.7); Neutrophil % 57.4 % (47-70); Platelet Count 226 K/mm3 (150-450); RBC Distribution Width CV 15.5 % (11.6-14.6); RBC Distribution Width SD 47.3 fl (35.1-43.9); Red Blood Count 4.88 M/mm3 (4.2-5.4); White Blood Count 5.4 K/mm3 (4.4-11.0)
[2022-01-15 06:19] LABS: ALB/GLOB Ratio 1.1 RATIO (0.9-2.4); AST(SGOT) 18 U/L (15-37); Alanine Aminotransfer ALT/SGPT 32 U/L (13-56); Albumin, Serum 2.9 g/dL (3.2-5.0); Alkaline Phosphatase 78 U/L (45-117); Anion Gap 8 (5-15); BUN 12 mg/dL (7-18); Calcium,Total 8.8 mg/dL (8.5-10.1); Chloride 113 mmol/L (98-107); Creatinine, Serum 0.63 mg/dL (0.55-1.02); EST Glomerular Filtration Rate 96 mL/min (>60); Est Glom Filt Rate - Afr Amer 117 mL/min (>60); Estimated Creatinine Clearance 37.74 ml/min; Globulin 2.7 g/dL (2.2-4.2); Glucose 110 mg/dL (74-106); Magnesium 1.8 mg/dL (1.6-2.6); Protein, Total 5.6 g/dL (6.4-8.2); Sodium Level 141 mmol/L (136-145); Thyroid Stim Hormone (TSH) 0.56 uIU/mL (0.358-3.74)
[2022-01-15] MEDS: Enoxaparin 40 MG/0.4 ML Syringe SC (09:28)
[2022-01-15] MEDS: Cholecalciferol (VIT D3) 25 MCG TABLET (1,000 UNITS) 50 MCG PO (09:28)
[2022-01-15] MEDS: Loperamide 2 MG Capsule PO ×2 (09:28→15:04)
--- NOTE | 2022-01-15 10:43 | CT_ITS ---
STUDY: CT ABDOMEN AND PELVIS WITH CONTRAST REASON FOR EXAM: Female, 81 years old. Increasing weakness and diarrhea. Recent infection with Covid. RADIATION DOSAGE (If Supplied By Facility): CTDIvol = ( 17.62 ) mGy, DLP = ( 1089.46 ) mGycm TECHNIQUE: Transaxial images were obtained from the dome of the diaphragm to the symphysis pubis with oral contrast. Oral and amp; IV Gastrografin and amp; 100mL Isovue-300 was administered. Sagittal and coronal images were reconstructed. Individualized dose optimization techniques were used for this CT. COMPARISON: Minimal increased linear markings at the lung bases suggestive of linear atelectasis and/or scarring. FINDINGS: The visualized lung bases are unremarkable. The visualized portions of the heart are within normal limits. There is decreased attenuation of the liver consistent with steatosis. There are surgical clips in the gallbladder fossa consistent with a prior cholecystectomy. Normal spleen. Normal pancreas. Normal bilateral adrenal glands. There is a 9.4 mm cyst in the peripheral lateral aspect of the upper pole of the right kidney. There is a 2.4 cm cyst in the medial aspect of the midportion left kidney. Left parapelvic cysts. There is a small hiatal hernia. Normal small intestine. There are multiple colonic diverticula consistent with diverticulosis. Moderate amount of fecal material is seen in the right colon The appendix is visualized and appears normal. There is diffuse atherosclerotic calcification of the abdominal aorta, without a demonstrated aneurysm. Normal inferior vena cava. Normal retroperitoneum. Normal urinary bladder. There is a small umbilical hernia containing fat. There are diffuse degenerative changes of the visualized lumbar spine. 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 CT/Abdomen/Pelvis WITH Contrast IMPRESSION: Bilateral renal cysts. Moderate amount of fecal material is seen in the colon more prominent in the right colon. Fatty infiltration of the liver. Electronically Signed: Richard Barlow MD at 13:59 EDT ,
--- NOTE | 2022-01-15 10:43 | CASEMGMT ---
RN KAREN Face to Face with patient for initial transition planning/care coordination assessment. RN CM introduced self and role at [facility]. Patient lying in bed, alert and oriented. Patient willing to participate in assessment and is able to answer all questions appropriately. Care providers, pharmacy, and demographics verified. Patient wishes to discharge home, will monitor for possible HHC vs outpatient therapy, pending progress with therapy. Patient states she has no further needs or concerns at this time. CM to follow for discharge planning needs that may arise. PCP: Dylan Renteria Specialists: none Preferred Pharmacy: [facility] [place] [facility] at discharge Insurance: [employer] Prescription Benefit: yes Living Will/HPOA: yes, daughter Lisseth Boogie LNOK: daughter, BENNY Living Arrangements: Patient lives alone in single story house with laundry in basement. Patient has 2 steps to enter the home. Patient states she is independent at home. Transportation: self, daughter DME/HHC: Patient states she has cane, walker, higher, and shower chair at home. No previous HHC or SNF. Patient state she was getting ready to start outpatient therapy at [facility] in [place] but did not go because she did not feel well. Disposition Plan: Patient to discharge home with family support and follow-up plans in place. Anticipate HHC vs Outpatient therapy pending progress with therapy. Melissa ROSALES, RN, CM
[2022-01-15] MEDS: Potassium Chloride 10mEq/100mL 10 MEQ/100 ML IV.SOLN. 100 MEQ IV BOLUS ×2 (12:38→14:21)
--- NOTE | 2022-01-15 18:04 | PCM.PN.HOSP ---
Subjective Subjective Patient was seen and examined today, she is still having some diarrhea, according to nursing it is green and bilious appearing. I ordered a CT of her abdomen pelvis today which showed stool in the right colon but no obvious abnormality such as colitis or obstruction. According to nursing, this afternoon her diarrhea has lessened, I placed her on Imodium on a program dose. Patient's enteric pathogen panel and C. difficile of the stool were negative. Objective Data Objective Data Vital Signs: Vital Signs Temp Pulse Resp BP Pulse Ox O2 Del Method 99.0 F 90 16 148/70 H 95 Room Air 01/15/22 15:10 01/15/22 15:30 01/15/22 15:10 01/15/22 15:10 01/15/22 15:10 01/15/22 15:10 Oxygen Delivery Method Room Air Weight: 88.3 kg Body Mass Index (BMI) 34.4 Intake & Output: Intake and Output for Last 24 Hours 01/13/22 01/14/22 01/15/22 23:59 23:59 23:59 Intake Total 1150 / 1350 3567.92 / 3567.92 Output Total 100 / 100 Balance 1150 / 1250 3467.92 / 3467.92 Lab / Micro Data Result Diagrams: 01/15/22 05:09 01/15/22 05:09 Labs: Laboratory Results - last 24 hr 01/14/22 18:35: Urine Color Yellow, Urine Clarity Clear, Urine pH 5.0, Ur Specific [place] 1.020, Urine Protein 30 H, Urine Glucose (UA) Normal, Urine Ketones 50 H, Urine Occult Blood Negative, Urine Nitrite Negative, Urine Bilirubin 1 H, Urine Urobilinogen 1 H, Ur Leukocyte Esterase 25 H, Urine RBC 0 SEEN, Urine WBC 0 SEEN, Ur Squamous Epith Cells 0 SEEN, Urine Bacteria 2+, Hyaline Casts 5-10 SEEN, Fine Granular Casts 5-10 SEEN, WBC Casts 0-5 SEEN, Urine Mucus 0 SEEN 01/14/22 18:40: WBC 6.6, RBC 5.57 H, Hgb 15.6 H, Hct 47.4 H, MCV 85.1, MCH 28.0, MCHC 32.9, RDW Std Deviation 47.6 H, RDW Coeff of Naomie 15.4 H, Plt Count 269, MPV 11.8, Immature Gran % (Auto) 0.600, Neut % (Auto) 64.1, Lymph % (Auto) 22.8, [place] % (Auto) 10.6 H, Eos % (Auto) 1.4, Baso % (Auto) 0.5, Absolute Neuts (auto) 4.2, Absolute Lymphs (auto) 1.50, Nucleated RBC % 0 01/14/22 18:40: PT 12.7, INR 1.0, APTT 26.3 01/14/22 18:40: Sodium 139, Potassium 2.8 L, Chloride 111 H, Carbon Dioxide 20.0 L, Anion Gap 8, BUN 15, Creatinine 0.77, Estim Creat Clear Calc 37.74, Est GFR (MDRD) Af Amer 92, Est GFR (MDRD) Non-Af 76, BUN/Creatinine Ratio 19.4, Glucose 124 H, Calcium 9.5, Total Bilirubin 0.60, AST 21, ALT 37, Alkaline Phosphatase 94, Troponin I High Sens 12, Total Protein 6.6, Albumin 3.4, Globulin 3.2, Albumin/Globulin Ratio 1.1, TSH 0.48 01/15/22 05:09: WBC 5.4, RBC 4.88, Hgb 14.0, Hct 41.5, MCV 85.0, MCH 28.7, MCHC 33.7, RDW Std Deviation 47.3 H, RDW Coeff of Naomie 15.5 H, Plt Count 226, MPV 11.6, Immature Gran % (Auto) 0.600, Neut % (Auto) 57.4, Lymph % (Auto) 24.4, [place] % (Auto) 14.6 H, Eos % (Auto) 2.6, Baso % (Auto) 0.4, Absolute Neuts (auto) 3.1, Absolute Lymphs (auto) 1.32, Nucleated RBC % 0 01/15/22 05:09: Sodium 141, Potassium 3.0 L, Chloride 113 H, Carbon Dioxide 20.0 L, Anion Gap 8, BUN 12, Creatinine 0.63, Estim Creat Clear Calc 37.74, Est GFR (MDRD) Af Amer 117, Est GFR (MDRD) Non-Af 96, BUN/Creatinine Ratio 19.0, Glucose 110 H, Calcium 8.8, Magnesium 1.8, Total Bilirubin 0.60, AST 18, ALT 32, Alkaline Phosphatase 78, Total Protein 5.6 L, Albumin 2.9 L, Globulin 2.7, Albumin/Globulin Ratio 1.1, TSH 0.56 Micro: Microbiology 01/14/22 18:35 Urine Catheter - Catheter Urine Culture - Preliminary Culture exhibits no growth. 01/14/22 23:40 Stool C. difficile DNA Amplification - Final 01/14/22 23:40 Stool Enteric Bacteriology - Final Radiography Diagnostic Testing: Radiology Impression Brain CT 01/14/22 18:18 IMPRESSION: No acute intracranial or calvarial abnormality. No major interval change. Electronically Signed: Jim RebuckDO [email or web address] at 19:56 EDT Reading Location ID and State: [facility] / [place] Tel [phone], Service support , Chest X-Ray 01/14/22 19:04 IMPRESSION: Degenerative changes, as described above. No demonstrated acute cardiopulmonary process. No major interval change. Electronically Signed: Jim Urias DO at 20:20 EDT Reading Location ID and State: [facility] / [place] Tel [phone], Service support , Abdomen/Pelvis CT 01/15/22 10:43 IMPRESSION: Bilateral renal cysts. Moderate amount of fecal material is seen in the colon more prominent in the right colon. Fatty infiltration of the liver. Electronically Signed: Richard Barlow MD at 13:59 EDT , Physical Exam Const alert, oriented x3, no apparent distress and average body habitus General Appearance: cooperative, well kempt and well developed Orientation / Consciousness: awake, oriented to person, oriented to place and oriented to time HEENT normocephalic, head/scalp atraumatic and moist oral mucous membranes Eyes PERRL, EOMs intact bilaterally and conjunctivae normal Neck supple, no JVD, thyroid normal and no carotid bruits General: trachea midline Resp normal respiratory effort, no retractions, no use of accessory muscles and clear to auscultation bilaterally Auscultation: Negative for rales, rhonchi or wheezes Cardio regular rate, regular rhythm, S1 normal heart sound, S2 normal heart sound, no murmurs, no rub and no gallops GI normal to inspection, nondistended, normoactive bowel sounds, soft to palpation, non-tender and non-distended Extremity normal to inspection and no clubbing, cyanosis or edema Skin no rashes or lesions noted General Skin Exam: no breakdown Neuro oriented x3, CN's II-XII intact bilaterally, no focal motor deficits and no sensory deficits noted Sensorium / Orientation: awake and alert Speech: speech normal Psych affect normal Assessment & Plan Assessment/Plan (1) Hypokalemia: PLAN: Plan 1. Hypokalemia-secondary to diarrhea, patient's repeat lab is pending this afternoon at the time of this dictation, I will repeat the patient's BMP tomorrow morning #2 diarrhea-at first the patient told me that the diarrhea started around the time she had COVID-19 several days ago, then she told me that earlier in the year her PCP ordered stool lab work on her due to her having loose stools. I am not sure of the timeframe of her diarrhea, again no pathology was noted on the patient's CT of the abdomen pelvis at this time. Continue to administer Imodium and monitor patient. #3 hypothyroidism-patient is on Synthroid #4 essential hypertension-patient is on amlodipine #5 acute debility-PT and OT are seeing patient, she has expressed wishes to go into a [facility] facility for short-term rehab services if necessary. Charges/Coding Visit Charges Inpatient E&M: 75693 Subs Hosp L2
[2022-01-15 19:04] LABS: Anion Gap 6 (5-15); BUN 14 mg/dL (7-18); Calcium,Total 9.2 mg/dL (8.5-10.1); Chloride 115 mmol/L (98-107); EST Glomerular Filtration Rate 86 mL/min (>60); Est Glom Filt Rate - Afr Amer 104 mL/min (>60); Estimated Creatinine Clearance 37.74 ml/min; Glucose 118 mg/dL (74-106); Potassium 3.8 mmol/L (3.5-5.1); Sodium Level 141 mmol/L (136-145)
--- NOTE | 2022-01-15 19:39 | DCINST_ITS ---
Discharge Instructions Diet Discharge Diet: No restrictions Activity Discharge Activity: Return to Normal Activity Weight Bearing Status: Full weight bearing Follow Up Care Test Results: Test results from this visit will be discussed in further detail at your follow- up appointment, if applicable. Discharge Plan Admission Admit Date/Time: 01/14/22 22:29 Primary Reason for Your Visit: Low potassium, debility Attending Provider: Renato Beatty Primary Care Provider: Dylan Renteria Consulting Providers: Andrew Melchor Instructions Additional Instructions / Restrictions: You may take [id number] Imodium 1 or 2 tablets or capsules every 6 hours as needed for diarrhea Discharge Orders/Prescriptions Prescriptions: Continued levothyroxine 112 mcg tablet 112 mcg PO DAILY rosuvastatin 20 mg tablet 20 mg PO QPM amlodipine 5 mg tablet 5 mg PO QHS coenzyme Q10 100 mg capsule 100 mg PO QPM aspirin 81 mg tablet,delayed release (DR/EC) 81 mg PO DAILY acetazolamide 500 mg Capsule, Extended Release 500 mg PO DAILY Creon 12,000-38,000 -60,000 unit Capsule,Delayed Release(Dr/Ec) 12,000 cap PO TIDCM duloxetine 20 mg capsule,delayed release(DR/EC) 20 mg PO DAILY Label Comments: TAKE 1 CAPSULE BY MOUTH once daily for 14 days, then increase to 40mg daily Referrals / Follow Up: Dylan Renteria MD [Primary Care Provider] - Within 2 Weeks Disposition Disposition (needs filled in before D/C Order can be placed): Home, Self Care
--- NOTE | 2022-01-15 19:43 | DS.PCM_ITS ---
Providers Date of Admission: 01/14/22 Date of Discharge: 01/15/22 Primary Care Physician: Dr. Dylan Renteria MD Reason For Visit: HYPOKALEMIA, DEBILITY Diagnosis Discharge Diagnosis (1) Hypokalemia: Status: Acute Code(s): E87.6 - Hypokalemia Plan 1. Hypokalemia secondary to diarrhea #2 diarrhea-etiology unclear #3 hypothyroidism #4 essential hypertension #5 acute debility Medications at Discharge Home Medications amlodipine 5 mg tablet 5 mg PO QHS 10/31/21 aspirin 81 mg tablet,delayed release 81 mg PO DAILY 10/31/21 coenzyme Q10 100 mg capsule 100 mg PO QPM 10/31/21 levothyroxine 112 mcg tablet 112 mcg PO DAILY 10/31/21 rosuvastatin 20 mg tablet 20 mg PO QPM 10/31/21 acetazolamide 500 mg capsule,extended release 500 mg PO DAILY 01/14/22 [id number] 12,000-38,000-60,000 unit capsule,delayed rel (Creon) 12,000 cap PO TIDCM 01/14/22 duloxetine 20 mg capsule,delayed release 20 mg PO DAILY depression 01/15/22 Hospital Course Operations None Procedures None Summary of Care Provided Minutes Spent on Discharge: 31 Hospital Course: 81-year-old white female was seen in the emergency room at [facility] with complaints of feeling unwell for several weeks, she had been diagnosed with COVID-19 approximately week ago, she also admitted to history of low potassium in the past. She complained of having diarrhea intermittently. She contacted her family physician who recommended the patient come to the emergency room for possible placement in a [facility] facility. Evaluation in the ER revealed the patient to have severe weakness, she was unable to ambulate to the bathroom without help. Work-up in the emergency room included a chest x-ray which was unremarkable, labs were obtained, white blood cell count was unremarkable, urinalysis was unremarkable, EKG was performed and was unremarkable. Chemistry profile showed potassium of 2.8. Patient was admitted to PCU, she was given supplemental potassium and IV fluids. Patient was seen by PT and OT. Patient's medical condition stabilized and she felt that she was ba ck to baseline on the evening of 01/15/2022 and requested discharge home with her daughter. On 01/15/2022, patient was seen and examined: On examination she appeared in good health and spirits, she does not appear to be in any distress. Vital signs as documented. Skin warm and dry and without overt rashes. Neck without JVD, thyroid appears normal, trachea is midline, neck is supple. Lungs clear, normal air movement was noted. Heart exam notable for regular rhythm, normal sounds and absence of murmurs, rubs or gallops. Abdomen unremarkable and without evidence of organomegaly, masses, or abdominal aortic enlargement, bowel sounds are present in all 4 quadrants, no abdominal tenderness was noted. Extremities nonedematous, no cyanosis was noted, no clubbing was noted. Neuro: Cranial nerves II through XII are grossly intact, no focal motor deficits were noted, sensation to light touch and pinprick is intact, motor exam 5/5 throughout. Psych: Patient is alert and oriented x3, she does not appear anxious or depressed, she does not appear agitated. On 01/15/2022, patient appeared stable for discharge home. Weight / BMI Weight Weight: 88.3 kg Body Mass Index (BMI) 34.4 ABG / Lab / Microbiology Data Result Diagrams: 01/15/22 05:09 01/15/22 17:40 Laboratory: Laboratory Results - last 24 hr 01/14/22 18:35: Urine RBC 0 SEEN, Urine WBC 0 SEEN, Ur Squamous Epith Cells 0 SEEN, Urine Bacteria 2+, Hyaline Casts 5-10 SEEN, Fine Granular Casts 5-10 SEEN, WBC Casts 0-5 SEEN, Urine Mucus 0 SEEN 01/14/22 18:40: Sodium 139, Potassium 2.8 L, Chloride 111 H, Carbon Dioxide 20.0 L, Anion Gap 8, BUN 15, Creatinine 0.77, Estim Creat Clear Calc 37.74, Est GFR (MDRD) Af Amer 92, Est GFR (MDRD) Non-Af 76, BUN/Creatinine Ratio 19.4, Glucose 124 H, Calcium 9.5, Total Bilirubin 0.60, AST 21, ALT 37, Alkaline Phosphatase 94, Troponin I High Sens 12, Total Protein 6.6, Albumin 3.4, Globulin 3.2, Albumin/Globulin Ratio 1.1, TSH 0.48 01/15/22 05:09: WBC 5.4, RBC 4.88, Hgb 14.0, Hct 41.5, MCV 85.0, MCH 28.7, MCHC 33.7, RDW Std Deviation 47.3 H, RDW Coeff of Naomie 15.5 H, Plt Count 226, MPV 11.6, Immature Gran % (Auto) 0.600, Neut % (Auto) 57.4, Lymph % (Auto) 24.4, [place] % (Auto) 14.6 H, Eos % (Auto) 2.6, Baso % (Auto) 0.4, Absolute Neuts (auto) 3.1, Absolute Lymphs (auto) 1.32, Nucleated RBC % 0 01/15/22 05:09: Sodium 141, Potassium 3.0 L, Chloride 113 H, Carbon Dioxide 20.0 L, Anion Gap 8, BUN 12, Creatinine 0.63, Estim Creat Clear Calc 37.74, Est GFR (MDRD) Af Amer 117, Est GFR (MDRD) Non-Af 96, BUN/Creatinine Ratio 19.0, Glucose 110 H, Calcium 8.8, Magnesium 1.8, Total Bilirubin 0.60, AST 18, ALT 32, Alkaline Phosphatase 78, Total Protein 5.6 L, Albumin 2.9 L, Globulin 2.7, Albumin/Globulin Ratio 1.1, TSH 0.56 01/15/22 17:40: Sodium 141, Potassium 3.8, Chloride 115 H, Carbon Dioxide 20.0 L , Anion Gap 6, BUN 14, Creatinine 0.70, Estim Creat Clear Calc 37.74, Est GFR (MDRD) Af Amer 104, Est GFR (MDRD) Non-Af 86, BUN/Creatinine Ratio 20.0, Glucose 118 H, Calcium 9.2 Microbiology: Microbiology 01/14/22 18:35 Urine Catheter - Catheter Urine Culture - Preliminary Culture exhibits no growth. 01/14/22 23:40 Stool C. difficile DNA Amplification - Final 01/14/22 23:40 Stool Enteric Bacteriology - Final Radiography Diagnostic Testing: Radiology Impression Brain CT 01/14/22 18:18 IMPRESSION: No acute intracranial or calvarial abnormality. No major interval change. Electronically Signed: Jim Urias DO at 19:56 EDT Reading Location ID and State: [address] [place] [address] Tel [phone], Service support , Chest X-Ray 01/14/22 19:04 IMPRESSION: Degenerative changes, as described above. No demonstrated acute cardiopulmonary process. No major interval change. Electronically Signed: Jim RussellonDO at 20:20 EDT , Abdomen/Pelvis CT 01/15/22 10:43 IMPRESSION: Bilateral renal cysts. Moderate amount of fecal material is seen in the colon more prominent in the right colon. Fatty infiltration of the liver. Electronically Signed: Richard Barlow MD at 13:59 EDT , D/C Instructions Discharge Diet: No restrictions Weight Bearing Status: Full weight bearing Meaningful Use Info Meaningful Use Diagnoses (Choose all that apply): None applicable Discharge Plan Admission Admit Date/Time: 01/14/22 22:29 Primary Reason for Your Visit: Low potassium, debility Attending Provider: Renato Beatty Primary Care Provider: Dylan Renteria Consulting Providers: Andrew Melchor Instructions Additional Instructions / Restrictions: You may take [id number] Imodium 1 or 2 tablets or capsules every 6 hours as needed for diarrhea Discharge Orders/Prescriptions Prescriptions: Continued levothyroxine 112 mcg tablet 112 mcg PO DAILY rosuvastatin 20 mg tablet 20 mg PO QPM amlodipine 5 mg tablet 5 mg PO QHS coenzyme Q10 100 mg capsule 100 mg PO QPM aspirin 81 mg tablet,delayed release (DR/EC) 81 mg PO DAILY acetazolamide 500 mg Capsule, Extended Release 500 mg PO DAILY Creon 12,000-38,000 -60,000 unit Capsule,Delayed Release(Dr/Ec) 12,000 cap PO TIDCM duloxetine 20 mg capsule,delayed release(DR/EC) 20 mg PO DAILY Label Comments: TAKE 1 CAPSULE BY MOUTH once daily for 14 days, then increase to 40mg daily Referrals / Follow Up: Dylan Renteria MD [Primary Care Provider] - Within 2 Weeks Disposition Disposition (needs filled in before D/C Order can be placed): Home, Self Care Charges/Coding Visit Charges Inpatient E&M: 60447 Disch Hosp
== END 2022-01-15 20:22 | disposition home or self-care (01) | DRG 640 ==
LOC: ED 22:22 → PCU 22:45
PROVIDERS: Admitting Provider Family Medicine; Emergency Provider Emergency Medicine; PCP Family Medicine; Visit Provider Internal Medicine
DX: E87.6 Hypokalemia (principal); U07.1 COVID-19; E03.9 Hypothyroidism, unspecified; I10 Essential (primary) hypertension; R19.7 Diarrhea, unspecified; Z79.899 Other long term (current) drug therapy; Z79.82 Long term (current) use of aspirin; Z28.310 Unvaccinated for COVID-19; R53.81 Other malaise
CPT/HCPCS: 36415; 70450; 71045; 74177; 80048; 80053; 81001; 83735; 84443; 84484; 85025; 85610; 85730; 87040; 87086; 87493; 87506; 93005; 97162; 97166; 97802; 99284; J7030; J7050; Q9967; A4216

== ENCOUNTER → 2022-01-25 | Outpatient (CLI) | payer MEDICARE, SELFPAY ==
[2022-01-25 12:09] LABS: Bacteria 0 SEEN /hpf (None Seen); Mucous, Urine 0 SEEN /hpf (<or=2+); Red Blood Cells-Urine 0 SEEN /hpf (0-5)
[2022-01-25 15:10] LABS: Color, Urine Yellow (Yellow); Glucose, Dipstick Normal (Normal); Ketone-Dipstick 5 mg/dl (Negative); Leukocyte Esterase-Dipstick 500 /ul (Negative); Nitrite-Dipstick Negative (Negative); Occult Blood-Urine Negative /ul (Negative); Protein-Dipstick 15 mg/dl (Negative); Urine Bilirubin Dipstick Negative (Negative); Urine Clarity Sl. Cloudy (Clear); Urine Urobilinogen 1 mg/dl (Normal)
[2022-01-25 15:20] LABS: Anion Gap 7 (5-15); BUN 17 mg/dL (7-18); BUN/Creat Ratio 21.1 RATIO (10-20); Calcium,Total 9.3 mg/dL (8.5-10.1); Chloride 117 mmol/L (98-107); Creatinine, Serum 0.81 mg/dL (0.55-1.02); EST Glomerular Filtration Rate 73 mL/min (>60); Est Glom Filt Rate - Afr Amer 88 mL/min (>60); Glucose 125 mg/dL (74-106); Magnesium 2.2 mg/dL (1.6-2.6); Potassium 3.6 mmol/L (3.5-5.1); Sodium Level 144 mmol/L (136-145)
[2022-01-25 15:27] LABS: Calcium Oxalate Crystals Ur 3+ /hpf (<or=2+)
[2022-01-25 15:30] LABS: Squamous Epithelial Cells - UA 0-5 SEEN /hpf (5-10); Transitional Epithelial - Ur 0-5 SEEN /hpf (0-5)
[2022-01-25 15:32] LABS: White Blood Cells 10-25 SEEN /hpf (0-5)
== END | disposition home or self-care (01) ==
LOC: MFPLAB 12:05
PROVIDERS: PCP Family Medicine; Referring Provider Family Medicine; Visit Provider Family Medicine
DX: R53.1 Weakness (principal); N39.0 Urinary tract infection, site not specified
CPT/HCPCS: 36415; 80048; 81001; 83735; 87086; 87088

== ENCOUNTER → 2022-01-31 | Outpatient (CLI) | payer MEDICARE, SELFPAY ==
[2022-01-31 15:03] LABS: Absolute Lymphocyte Count 1.27 X10^3/uL (0.83-4.51); Absolute Neutrophil Count 5.4 X10^3/uL (2.0-7.7); Basophil# 0.08 X10^3/uL; Eosinophil# 0.11 X10^3/uL; Eosinophils% 1.4 % (0-5); Hematocrit 42.5 % (37-47); Hemoglobin 13.8 g/dL (12.0-15.0); Lymphocyte # 1.27 X10^3/ul (0.83-4.51); Lymphocyte % 16.6 % (19-41); Mean Corp Hgb Conc 32.5 g/dL (32-36); Mean Corpuscular Volume 89.3 fL (81-99); Mean Platelet Vol. 12.1 fl (6.2-12.0); Monocyte# 0.82 X10^3/uL; Monocyte% 10.7 % (0-10); NRBC Flagged by Analyzer 0 % (0-5); Neutrophil # 5.35 X10^3/uL (2.7-7.7); Platelet Count 313 K/mm3 (150-450); RBC Distribution Width CV 15.4 % (11.6-14.6); RBC Distribution Width SD 50.6 fl (35.1-43.9); Red Blood Count 4.76 M/mm3 (4.2-5.4); White Blood Count 7.7 K/mm3 (4.4-11.0)
[2022-01-31 15:22] LABS: AST(SGOT) 16 U/L (15-37); Alanine Aminotransfer ALT/SGPT 31 U/L (13-56); Albumin, Serum 3.4 g/dL (3.2-5.0); Alkaline Phosphatase 87 U/L (45-117); Anion Gap 7 (5-15); BUN 14 mg/dL (7-18); BUN/Creat Ratio 18.6 RATIO (10-20); CRP < 2.90 mg/L (0.0-3.0); Calcium,Total 9.1 mg/dL (8.5-10.1); Chloride 112 mmol/L (98-107); Creatinine, Serum 0.75 mg/dL (0.55-1.02); EST Glomerular Filtration Rate 79 mL/min (>60); Est Glom Filt Rate - Afr Amer 95 mL/min (>60); Globulin 3.5 g/dL (2.2-4.2); Glucose 109 mg/dL (74-106); Potassium 3.6 mmol/L (3.5-5.1); Protein, Total 6.9 g/dL (6.4-8.2); Sodium Level 140 mmol/L (136-145)
== END | disposition home or self-care (01) ==
LOC: MFPLAB 12:27
PROVIDERS: PCP Family Medicine; Visit Provider Family Medicine
DX: R53.81 Other malaise (principal)
CPT/HCPCS: 36415; 80053; 85025; 86140

== ENCOUNTER → 2022-02-13 | Outpatient (CLI) | payer MEDICARE, SELFPAY ==
[2022-02-20 11:57] LABS: Pancreatic Elastase, Fecal 221 (>200)
== END | disposition home or self-care (01) ==
LOC: LAB.FUTURE 17:49 → LABSPEC 02-14 06:24
PROVIDERS: PCP Family Medicine; Visit Provider Family Medicine
DX: R19.5 Other fecal abnormalities (principal); R53.81 Other malaise; R53.83 Other fatigue
CPT/HCPCS: 82653

== ENCOUNTER → 2022-07-10 | Outpatient (CLI) | payer MEDICARE, SELFPAY ==
[2022-07-10 16:04] LABS: Microalbumin,Random Urine 59.6 mg/L (NO RANGE EST.); Microalbumin:Creatinine Ratio 33.3 mg/g CRE (<30 mg/g CRE)
[2022-07-10 16:22] LABS: ALB/GLOB Ratio 1.3 RATIO (0.9-2.4); AST(SGOT) 14 U/L (15-37); Alanine Aminotransfer ALT/SGPT 30 U/L (13-56); Albumin, Serum 3.6 g/dL (3.2-5.0); Alkaline Phosphatase 89 U/L (45-117); Anion Gap 9 (5-15); BUN 25 mg/dL (7-18); BUN/Creat Ratio 31.7 RATIO (10-20); Calcium,Total 8.8 mg/dL (8.5-10.1); Chloride 114 mmol/L (98-107); Creatinine, Serum 0.79 mg/dL (0.55-1.02); EST Glomerular Filtration Rate 75 mL/min (>60); Est Glom Filt Rate - Afr Amer 90 mL/min (>60); Globulin 2.7 g/dL (2.2-4.2); Glucose 104 mg/dL (74-106); Potassium 3.8 mmol/L (3.5-5.1); Protein, Total 6.3 g/dL (6.4-8.2); Sodium Level 144 mmol/L (136-145)
== END | disposition home or self-care (01) ==
LOC: MFPLAB 13:33
PROVIDERS: PCP Family Medicine; Visit Provider Family Medicine
DX: E04.1 Nontoxic single thyroid nodule (principal); R35.0 Frequency of micturition
CPT/HCPCS: 36415; 80053; 82043; 82570; 84443

== ENCOUNTER → 2022-09-24 | Outpatient (CLI) | payer MEDICARE, SELFPAY ==
[2022-09-24 19:01] LABS: ALB/GLOB Ratio 1.2 RATIO (0.9-2.4); AST(SGOT) 19 U/L (15-37); Alanine Aminotransfer ALT/SGPT 31 U/L (13-56); Albumin, Serum 3.7 g/dL (3.2-5.0); Alkaline Phosphatase 98 U/L (45-117); Anion Gap 9 (5-15); BUN 21 mg/dL (7-18); BUN/Creat Ratio 25.5 RATIO (10-20); Calcium,Total 9.2 mg/dL (8.5-10.1); Chloride 113 mmol/L (98-107); Creatinine, Serum 0.82 mg/dL (0.55-1.02); EST Glomerular Filtration Rate 71 mL/min (>60); Est Glom Filt Rate - Afr Amer 86 mL/min (>60); Globulin 3.2 g/dL (2.2-4.2); Glucose 99 mg/dL (74-106); Potassium 3.6 mmol/L (3.5-5.1); Protein, Total 6.9 g/dL (6.4-8.2); Sodium Level 141 mmol/L (136-145); T4 Free Direct 1.11 ng/dL (0.76-1.46); Thyroid Stim Hormone (TSH) 0.77 uIU/mL (0.358-3.74)
== END | disposition home or self-care (01) ==
LOC: MFPLAB 11:44
PROVIDERS: PCP Family Medicine; Referring Provider Family Medicine; Visit Provider Family Medicine
DX: E03.9 Hypothyroidism, unspecified (principal)
CPT/HCPCS: 36415; 80053; 84439; 84443

== ENCOUNTER → 2023-05-06 | Outpatient (CLI) | payer MEDICARE, SELFPAY ==
[2023-05-06 18:04] LABS: AST(SGOT) 15 U/L (15-37); Alanine Aminotransfer ALT/SGPT 30 U/L (13-56); Albumin, Serum 3.5 g/dL (3.2-5.0); Alkaline Phosphatase 108 U/L (45-117); Bilirubin, Direct 0.09 mg/dL (0.00-0.30); CRP < 2.90 mg/L (0.0-3.0); Globulin 3.3 g/dL (2.2-4.2); Lipase 58 U/L (13-75); Protein, Total 6.8 g/dL (6.4-8.2)
[2023-05-08 16:09] LABS: Endomysial Antibody IgA Negative (Negative); Immunoglobulin A 79 mg/dL (64-422); t-Transglutaminase IgA <2 U/mL (0-3)
== END | disposition home or self-care (01) ==
LOC: MTLAB 16:28
PROVIDERS: PCP Family Medicine; Referring Provider Internal Medicine Gastroenterology; Visit Provider Internal Medicine Gastroenterology
DX: R19.7 Diarrhea, unspecified (principal)
CPT/HCPCS: 36415; 80076; 82784; 83516; 83690; 86140; 86255

== ENCOUNTER → 2023-05-08 | Outpatient (CLI) | payer MEDICARE, SELFPAY ==
[2023-05-15 22:06] LABS: Calprotectin, Stool 52 ug/g (0-120); Fats, Neutral Normal (.); Fats, Total Normal (.)
== END | disposition home or self-care (01) ==
LOC: MTLAB 13:31
PROVIDERS: PCP Family Medicine; Referring Provider Internal Medicine Gastroenterology; Visit Provider Internal Medicine Gastroenterology
DX: R19.7 Diarrhea, unspecified (principal)
CPT/HCPCS: 82705; 83993

== ENCOUNTER → 2023-06-02 | Outpatient (CLI) | payer MEDICARE, SELFPAY ==
--- NOTE | 2023-06-02 14:00 | RAD_ITS ---
INDICATION: Other intervertebral disc degeneration, lumbar region EXAMINATION/TECHNIQUE: X-RAY - XR Spine Lumbar 2 or 3 Views COMPARISON: None. FINDINGS: VERTEBRAE: Preserved vertebral body height. No fracture. 1.3 cm anterolisthesis L4 on L5. Preservation of the normal lumbar lordosis. Severe multilevel facet arthropathy. DISCS: Severe multilevel degenerative disc disease and spondylosis. INCLUDED ABDOMEN: Included bowel gas pattern is non-obstructive. RAD/Lumbar Spine 2 or 3 Views IMPRESSION: No evidence of lumbar spinal fracture. Grade 2 anterolisthesis L4 on L5. Severe multilevel degenerative disc disease and spondylosis. Electronically Signed: Jim Lei MD at 21:06 EST ,
== END | disposition home or self-care (01) ==
LOC: RAD 13:51
PROVIDERS: PCP Family Medicine; Visit Provider Anesthesiology Pain Medicine
DX: M51.36 Other intervertebral disc degeneration, lumbar region (principal)
CPT/HCPCS: 72100

== ENCOUNTER → 2023-08-21 | Outpatient (CLI) | payer MEDICARE, SELFPAY ==
[2023-08-21 12:44] LABS: Bacteria 0 SEEN /hpf (None Seen); Mucous, Urine 0 SEEN /hpf (<or=2+); Red Blood Cells-Urine 0 SEEN /hpf (0-5); Squamous Epithelial Cells - UA 0 SEEN /hpf (5-10); White Blood Cells 0 SEEN /hpf (0-5)
[2023-08-21 16:40] LABS: ALB/GLOB Ratio 1.2 RATIO (0.9-2.4); AST(SGOT) 20 U/L (15-37); Alanine Aminotransfer ALT/SGPT 33 U/L (13-56); Albumin, Serum 3.7 g/dL (3.2-5.0); Alkaline Phosphatase 100 U/L (45-117); Anion Gap 7 (5-15); BUN 13 mg/dL (7-18); BUN/Creat Ratio 16.6 RATIO (10-20); Calcium,Total 9.2 mg/dL (8.5-10.1); Chloride 114 mmol/L (98-107); Creatinine, Serum 0.78 mg/dL (0.55-1.02); EST Glomerular Filtration Rate 75 mL/min (>60); Est Glom Filt Rate - Afr Amer 91 mL/min (>60); Free T3 2.2 pg/mL (2.18-3.98); Glucose 104 mg/dL (74-106); Potassium 3.6 mmol/L (3.5-5.1); Protein, Total 6.7 g/dL (6.4-8.2); Sodium Level 142 mmol/L (136-145); Thyroid Stim Hormone (TSH) 0.49 uIU/mL (0.358-3.74)
[2023-08-21 17:43] LABS: Absolute Neutrophil Count 3.9 X10^3/uL (2.0-7.7); Basophil# 0.08 X10^3/uL; Basophil% 1.2 % (0-1); Eosinophil# 0.27 X10^3/uL; Eosinophils% 3.9 % (0-5); Hematocrit 43.4 % (37-47); Hemoglobin 13.6 g/dL (12.0-15.0); Lymphocyte % 26.2 % (19-41); Mean Corp Hgb Conc 31.3 g/dL (32-36); Mean Corpuscular Hgb 27.5 pg (27.0-32.0); Mean Corpuscular Volume 87.7 fL (81-99); Mean Platelet Vol. 11.4 fl (6.2-12.0); Monocyte# 0.78 X10^3/uL; Monocyte% 11.4 % (0-10); NRBC Flagged by Analyzer 0 % (0-5); Neutrophil # 3.92 X10^3/uL (2.7-7.7); Neutrophil % 57.2 % (47-70); Platelet Count 272 K/mm3 (150-450); RBC Distribution Width CV 14.2 % (11.6-14.6); RBC Distribution Width SD 45.8 fl (35.1-43.9); Red Blood Count 4.95 M/mm3 (4.2-5.4); White Blood Count 6.9 K/mm3 (4.4-11.0)
[2023-08-21 17:54] LABS: Color, Urine Yellow (Yellow); Glucose, Dipstick Normal (Normal); Ketone-Dipstick Negative (Negative); Leukocyte Esterase-Dipstick Negative /ul (Negative); Nitrite-Dipstick Negative (Negative); Occult Blood-Urine Negative /ul (Negative); Protein-Dipstick 15 mg/dl (Negative); Urine Bilirubin Dipstick Negative (Negative); Urine Clarity Sl. Cloudy (Clear); Urine Urobilinogen 1 mg/dl (Normal)
== END | disposition home or self-care (01) ==
LOC: MTLAB 12:41
PROVIDERS: PCP Family Medicine; Referring Provider Family Medicine; Visit Provider Family Medicine
DX: R11.0 Nausea (principal); E03.9 Hypothyroidism, unspecified; R35.0 Frequency of micturition
CPT/HCPCS: 36415; 80053; 81001; 84439; 84443; 84481; 85025; 87086

== ENCOUNTER → 2023-09-01 | Outpatient (CLI) | payer MEDICARE, SELFPAY ==
--- NOTE | 2023-09-01 08:55 | RAD_ITS ---
EXAMINATION: Air contrast UPPER GI SERIES INDICATION: Female, 83 years epigastric pain and nausea. FLUOROSCOPY TIME (if supplied): (0:32) minutes/seconds. 38.79 mGy. 20 spot images were obtained. TECHNIQUE: Radiographic and fluoroscopic images of the distal esophagus, stomach, and proximal small intestine were obtained following the oral ingestion of barium. COMPARISON: None. FINDINGS: The patient ingested barium. Images of the esophagus stomach and duodenum were obtained. There is narrowing of the distal esophagus at the level of the gastroesophageal junction. Correlation with endoscopy is recommended. No evidence of gastroesophageal reflux. The mucosa of the stomach and duodenum is normal in appearance without evidence for stricture, ulceration, mass or diverticulum. There is no evidence for hiatal hernia or gastroesophageal reflux. RAD/Upper GI Dual Contrast IMPRESSION: 1. Narrowing of the distal esophagus as described. Correlation with endoscopy is recommended. Electronically Signed: Richard Barlow MD at 15:36 EDT ,
== END | disposition home or self-care (01) ==
PROVIDERS: PCP Family Medicine; Referring Provider Family Medicine; Visit Provider Family Medicine
DX: R11.0 Nausea (principal)
CPT/HCPCS: 74246

== ENCOUNTER → 2023-09-23 | Outpatient (CLI) | payer MEDICARE, SELFPAY ==
--- NOTE | 2023-09-23 16:25 | RAD_ITS ---
HISTORY: Spondylosis without myelopathy or radiculopathy, cervical region. TECHNIQUE: XR Spine Cervical 4 or 5 Views. COMPARISON: None. FINDINGS: VERTEBRAE: Vertebral body heights maintained. No acute fracture identified. Degenerative changes the posterior elements. ALIGNMENT: No significant anterior or posterior subluxation. Preservation of the cervical lordosis. INTERVERTEBRAL DISCS: Degenerative endplate changes at multiple levels with advanced intervertebral disc space narrowing of C3-4, C5-6, and C6-7. Foraminal narrowing at C6-7. SOFT TISSUES: No significant prevertebral soft tissue swelling. RAD/Cerv Spine 4 or 5 Views IMPRESSION: No acute fracture or dislocation identified in the cervical spine. Multilevel degenerative change Electronically Signed: France Walsh MD at 8:55 EDT ,
== END | disposition home or self-care (01) ==
LOC: MTRAD 16:20
PROVIDERS: PCP Family Medicine; Referring Provider Family Medicine; Visit Provider Family Medicine
DX: M47.812 Spondylosis without myelopathy or radiculopathy, cervical region (principal)
CPT/HCPCS: 72050

== ENCOUNTER 2023-11-13 13:00 | Outpatient (RCR) | payer MEDICARE, SELFPAY ==
--- NOTE | 2023-10-02 13:53 | HP.PTEVAL ---
Patient's Visit Information Visit Information Visit Information: ENRIQUE GILLETTE is a 83 year old F referred to Physical Therapy by Dr. yDlan Renteria MD with a diagnosis of LUMBAR DJD. Date of Evaluation: 10/02/23 Physical Therapist: Jessica Ruiz PT, Cert MDT Visit Plan Frequency: 2-3x /Week Duration: 4-6 Weeks Plan: *No Back Extension Ex past Neutral* Neutral Spine Core Stability Exercises and Pancho LE Hip Flexor, Hamstring and Calf Stretching to help reduce stress to the Lumbar Spine with all Daily Activities. Pancho LE Strengthening. Instruction in Proper Posture Control, Body Mechanics, and Appropriate Activity Modifications. HEP Instruction. Subjective Subjective: Work/Leisure: RETIRED. LIVES ALONE. ONE STORY HOME WITH BASEMENT. 2 STEPS IN/OUT OF HOME WITH HR. Present symptoms: PANCHO LOW BACK PAIN. PANCHO LE HEAVY AND WEAK FEELING. PATIENT DENIES PANCHO LE NUMBNESS AND TINGLING. PATIENT REPORTS SHE ONLY WANTS TO BE SEEN FOR HER BACK TODAY (NOT FOR HER NECK OR INCONTINENCE). Present since: CHRONIC. MANY YEARS Pain Scale: WORST 8/10, LEAST 0/10 Currently: 0/10 Is it getting better, worse or staying the same: STAYING THE SAME Commenced as a result of: NO APPARENT REASON Symptoms at onset: BACK PAIN Worse: STANDING AND WALKING Better: SITTING, [place], WALKING WITH A CART Disturbed sleep: NO Previous history/Previous treatment: LAST YEAR EPISODE OF SEVER PAIN DOWN THE L LEG RESOLVED WITH PAIN SHOTS BY DR. VELASCO. USE TO GO TO THE [facility] BUT HASN'T BEEN FOR ABOUT 4 YEARS. Treatment this episode: [facility] A FEW MONTHS AGO - SEEMED TO HELP FOR MAYBE 3 DAYS. Coughing/sneezing/straining: NEGATIVE FOR INCREASED BACK PAIN. Gait: NOT USING ANY AD'S BUT CAN WALK WITH LESS PAIN PUSHING THE CART IN THE [facility] STORE. DENIES ANY FALLS EXCEPT AT DAUGHTERS LAST YEAR. DOES HER OWN HOUSE CLEANING, LAUNDRY AND GROCERY SHOPPING. DRIVES. Bowel or Bladder Dysfunction: SMALL AMTS OF URINARY LEAKING FOR YEARS WORSENING OVER THE LAST YEAR. DENIES BOWEL INCONTINENCE - BUT DOESN'T ALWAYS REALIZES SHE IS HAVING A BOWEL MVMT WHEN SHE URINATES. THIS PT RECOMMENDED PATIENT CONTINUE TO TALK TO HER DOCTOR ABOUT THIS IF SHE IS NOT GOING TO PURSE PELVIC FLOOR PT RECOMMENDED. Unexplained weight loss: NO Imaging: INDICATION: Other intervertebral disc degeneration, lumbar region EXAMINATION/TECHNIQUE: X-RAY - XR Spine Lumbar 2 or 3 Views COMPARISON: None. FINDINGS: VERTEBRAE: Preserved vertebral body height. No fracture. 1.3 cm anterolisthesis L4 on L5. Preservation of the normal lumbar lordosis. Severe multilevel facet arthropathy. DISCS: Severe multilevel degenerative disc disease and spondylosis. INCLUDED ABDOMEN: Included bowel gas pattern is non-obstructive. RAD/Lumbar Spine 2 or 3 Views IMPRESSION: No evidence of lumbar spinal fracture. Grade 2 anterolisthesis L4 on L5. Severe multilevel degenerative disc disease and spondylosis. PMH/Recent major surgery: NECK ARTHRITIS. L SHLD PROBLEMS - L TSR RECOMMENDED BUT DECLINED. HTN. R THR. PANCHO TKR'S. PANCHO CTR'S. Objective Objective: Sitting/Standing Posture: R ILIAC CREST HIGHER THAN L. PANCHO GENU VALGUS. STANDS IN PPT WITH MILD PANCHO HIP AND KNEE FLEXION. Active Correction of posture: INCREASES C/O LBP. Other Observations: THIS PATIENT AMBULATES INDEP'LY INTO PT WITHOUT ANY AD'S WITH INCREASED TRUNK FLEXION, DECREASED PANCHO STRIDE LENGTH, DECREASED CADANCE AND NO LOB. SHE IS ABLE TO TRANSFER FROM SIT TO STAND WITHOUT UE ASSIST X ONE REP ONLY THEN NEEDS AT LEAST ONE UE ASSIST. Sensory deficit: PANCHO LE LIGHT TOUCH SENSATION IS GROSSLY INTACT AND SYMMETRICAL ROM deficit: PANCHO HIP, KNEE AND ANKLE STIFFNESS Motor deficit: PANCHO LE'S GROSSLY 5/5 WITH MMT'ING EXCEPT HIPS 4/5. Dural Signs: NEGATIVE PANCHO LE'S. Lumbar mvmt loss: flex - MOD ext - NT R SG - MOD L SG - MOD PATIENT C/O INCREASED LBP WITH PANCHO SG TESTING - NW Core strength: POOR Palpation: NO ACUTE BACK OR HIP TENDERNESS. OTHER: PATIENT DOES NOT WANT TO DO AQUATIC THERAPY. 30 STS TEST - 5 WITH ONE UE ASSIST. TUG TIME: 13.70 SEC Balance/Special Test Scores Oswestry Low Back Score: 23 Goals Goal 1:: DECREASE C/O LOW BACK PAIN BY AT LEAST 25% TO EASE ADL'S Goal Time Frame: 4-6 Weeks Goal 2:: PATIENT WILL COMPLETE 6 STANDS IN 30 SECS WITHOUT UE ASSIST TO DEMONSTRATE IMPROVED FUNCTIONAL STRENGTH Goal Time Frame: 4-6 Weeks Goal 3:: PATIENT WILL COMPLETE TUG IN < 10 SECS WITHOUT AD TO DEMONSTRATE IMPROVED GAIT STABILITY Goal Time Frame: 4-6 Weeks Goal 4:: PATIENT WILL HAVE A 5 POINT IMPROVEMENT ON HER BACK OWESTRY QUESTIONNAIRE. Goal Time Frame: 4-6 Weeks Goal 5:: PATIENT WILL BE INDEP WITH A HEP FOR CONTINUED IMPROVEMENT ONCE FORMAL PHYSICAL THERAPY CONCLUDES. Goal Time Frame: 4-6 Weeks Rehabilitation Potential Physical Therapy Diagnosis: THIS PATIENT PRESENTS TO PT WITH LOW BACK AND LE STIFFNESS AND WEAKNESS AND DECREASED STANDING AND WALKING TOLERANCE. Rehabilitation Potential: Good Anticipated Interventions Patient/Client Instruction: Educate patient on: Condition, Plan of Care and Risk Factors For the Purpose of:: To improve self management Therapeutic Exercise to Include: Strength training, Body mechanics, Postural training, Flexibilty training and Dynamic Lumbar Stabilization For the Purpose of:: To decrease pain, To improve muscle performance and motor function, To increase tolerance to activity/condition/position, To improve ability of physical actions for home/community/work/leisure and To increase flexibility/ROM Cryotherapy (ice pack, ice massage): Yes Thermo therapy (hot pack): Yes For the Purpose of:: To decrease pain, To decrease swelling/inflammation and To improve nutrient delivery to tissue Text: Thank you for the opportunity to evaluate your patient. For Medicare and Medicare HMO plans, please review the plan of care and approve it. It will need to be FAXED BACK to us at [phone] for Medicare purposes. For Medicare only, by signing this I certify the plan of care. Please let me know if there are questions or concerns regarding this plan of care. Physician Signature: Date:
--- NOTE | 2023-11-13 14:12 | HP.PTDCSUM ---
Discharge Summary D/C summary: It has been my pleasure to treat ENRIQUE GILLETTE referred by Dr. Dylan Renteria MD, with the diagnosis of LUMBAR DJD for a total of 8 visit(s). Discharge Date: 11/13/23 Please see the following information for a summary of their discharge status. Subjective Subjective: PATIENT REPORTS THE PAIN ACROSS HER LOWER BACK WITH STANDING AND WALKING ISN'T NEAR BAD IT WAS BUT IT IS STILL THERE. THE BAD PAIN ISN'T THERE. SAW DR. VELASCO LAST WEEK AND HE RECOMMENDED ANOTHER INJECTION - AWAITING INSURANCE APPROVAL. WANTS TO CONTINUE THE EXERCISES ON HER OWN AT THIS POINT. Pain LOW BACK: Pain Intensity (Out of 10): 5 LEGS: Pain Intensity (Out of 10): 0 Overall Improvement % Improvement: 70 Objective Objective/Function: UPON EXAM TODAY: Lumbar mvmt loss: flex - MIN ext - NT R SG - MOD L SG - MOD PATIENT DENIES INCREASED BACK PAIN WITH LUMBAR ROM TESTING TODAY. Palpation: NO ACUTE BACK OR HIP TENDERNESS. 30 STS TEST - 9 WITH NO UE ASSIST. TUG TIME: 10.48 SEC - NO AD Goals Goal 1:: DECREASE C/O LOW BACK PAIN BY AT LEAST 25% TO EASE ADL'S Goal Progress: Goal Met Goal 2:: PATIENT WILL COMPLETE 6 STANDS IN 30 SECS WITHOUT UE ASSIST TO DEMONSTRATE IMPROVED FUNCTIONAL STRENGTH Goal Progress: Goal Met Goal 3:: PATIENT WILL COMPLETE TUG IN < 10 SECS WITHOUT AD TO DEMONSTRATE IMPROVED GAIT STABILITY Goal Progress: Progressing Goal 4:: PATIENT WILL HAVE A 5 POINT IMPROVEMENT ON HER BACK OWESTRY QUESTIONNAIRE. Goal Progress: Goal Met Goal 5:: PATIENT WILL BE INDEP WITH A HEP FOR CONTINUED IMPROVEMENT ONCE FORMAL PHYSICAL THERAPY CONCLUDES. Goal Progress: Progressing Plan Plan: D/C D/C Information d/c sentence: If there are questions or concerns regarding this patient's physical therapy, please feel free to call me at [phone]. Thank you for the referral of this patient. Sincerely, Jessica Ruiz, PT, Cert MDT Balance/Gait/Functional tests Balance/Special Test Scores Oswestry Low Back Score: 14 Improvement % Improvement: 70
== END 2023-11-13 19:00 | disposition home or self-care (01) ==
LOC: PT 13:00
PROVIDERS: PCP Family Medicine; Referring Provider Family Medicine; Visit Provider Family Medicine
DX: R32 Unspecified urinary incontinence (principal); R15.9 Full incontinence of feces; M47.816 Spondylosis without myelopathy or radiculopathy, lumbar region; M47.812 Spondylosis without myelopathy or radiculopathy, cervical region; M19.90 Unspecified osteoarthritis, unspecified site
CPT/HCPCS: 97110; 97162; 97530

== ENCOUNTER 2024-02-11 16:51 | Inpatient (IN) | payer MEDICARE, SELFPAY ==
[2024-02-11] VITALS (14 sets, daily range): BP systolic 146–200; BP diastolic 59–128; PULSE 60–82; RESP 13–23; TEMP 36.3–36.6; O2SAT 91–99; BMI 36.5
--- NOTE | 2024-02-11 17:11 | ED.RN ---
PT FAMILY CAME OUT TO NOTIFY THIS NURSE THAT THE PT IS IN A LOT OF PAIN. DR. LANGE UPDATED. NO ORDERS ENTERED AT THIS TIME.
--- NOTE | 2024-02-11 17:12 | EDS_ITS ---
HPI History of Present Illness Chief Complaint: Headache Informant: patient Onset/Context/Timing Onset: Today Context: Sudden Timing: Continuous Quality -Headache: Positive for Other (Aching) Location: Occipital and frontal Worsened by: Nothing Relieved by: Nothing Associated Symptoms/Injury Associated Symptoms: Positive for Nausea; Negative for Fever, Vomiting, Sore Throat, Sinus Pressure, Numbness, Tingling, Visual Changes or Blurred Vision Injury - CARUSO: Negative for Direct Trauma or Fall Narrative Narrative: Patient presents with a headache that began today. Patient states it began rather suddenly. Patient states it started in the occipital area. Patient states it is now radiated to the frontal area. Patient states nothing makes it better and nothing makes it worse. Patient admits to some nausea but denies any vomiting. Patient denies any paresthesias or weakness. Patient denies any visual changes. Family states patient was confused earlier today. Family states that the noted she was driving erratic and was able to take her home. called EMS and EMS cleared her. Family is concerned and brought her to the emergency department. [facility] Medical History Essential (primary) hypertension Hyperlipidemia Atrial dysrhythmia Ventricular tachycardia Thyroid nodule Fatigue Pancreatic insufficiency Overactive bladder Abnormal Holter monitor finding DDD (degenerative disc disease) Hypothyroid HTN (hypertension) Home Medications ?Medication ?Instructions ?Recorded ?Last Taken ?Type aspirin 81 mg tablet,delayed 81 mg PO DAILY 10/31/21 Unknown History release coenzyme Q10 100 mg capsule 100 mg PO QPM 10/31/21 Unknown History rosuvastatin 20 mg tablet 20 mg PO QPM 10/31/21 Unknown History pantoprazole 40 mg tablet,delayed 40 mg PO QDAY 01/22/24 Unknown History release hydrocodone-acetaminophen 5-325mg 1 tab PO BID PRN pain 01/23/24 Unknown History 5mg-325mg levothyroxine 100 mcg tablet 100 mcg PO DAILY 01/23/24 Unknown History metoprolol succinate 50 mg 50 mg PO DAILY #60 tabs 01/23/24 Unknown Rx tablet,extended release 24 hr (Toprol XL) Allergy/AdvReac Type Severity Reaction Status Date / Time Penicillins Allergy Intermediate Swelling Verified 02/11/24 16:57 Family History Father Blood clotting tendency CVA (cerebral vascular accident) Brother Blood clotting tendency Hypertension Mother Hypertension CVA (cerebral vascular accident) Sister CAD (coronary artery disease) Son Hypertension Hypercholesterolemia Daughter Hypertension Surgical History Hx laparoscopic cholecystectomy History of total knee replacement (TKR) Hx of carpal tunnel repair History of hip replacement Social History housing: house number of children: 3 current occupational status: retired Smoking Status: Never smoker alcohol intake: never substance use type: does not use ROS ROS ED Constitutional Constitutional ED: Denies chills or fever(s) Eyes Eyes: Denies blurry vision or change in vision ENT ENT ED: Denies rhinorrhea or sore throat Cardiovascular Cardiovascular: Denies chest pain or palpitations Respiratory/Chest Respiratory/Chest: Denies cough or dyspnea Gastrointestinal Gastrointestinal: Reports nausea; Denies vomiting Genitourinary Genitourinary ED: Denies dysuria or hematuria Musculoskeletal Musculoskeletal: Denies back pain or neck pain Integumentary Denies abscess or rash Neurologic Neurologic: Reports headache(s); Denies weakness Allergic/Immunologic Allergic/Immunologic ED: Denies mouth swelling or urticaria EXAM Physical Exam Const Vital Signs: 02/11/24 16:52 02/11/24 18:01 02/11/24 18:35 Temperature 97.3 F L Temperature Source Temporal Pulse Rate 76 62 63 Respiratory Rate 19 H 23 H Blood Pressure 146/76 H 200/75 H 193/76 H Blood Pressure Mean 99 116 115 Pulse Ox 98 Oxygen Delivery Method Room Air 02/11/24 18:44 02/11/24 18:54 02/11/24 19:00 Temperature Temperature Source Pulse Rate 68 70 Respiratory Rate 17 Blood Pressure 175/73 H 187/78 H 189/80 H Blood Pressure Mean 107 114 116 Pulse Ox 98 Oxygen Delivery Method Room Air 02/11/24 19:41 02/11/24 19:48 02/11/24 20:00 Temperature Temperature Source Pulse Rate 82 62 Respiratory Rate 16 16 Blood Pressure 175/75 H 169/69 H 167/87 H Blood Pressure Mean 108 102 113 Pulse Ox 98 98 Oxygen Delivery Method Room Air 02/11/24 21:00 02/11/24 21:34 02/11/24 22:00 Temperature Temperature Source Pulse Rate 68 60 Respiratory Rate 16 13 Blood Pressure 179/70 H 180/59 H 183/69 H Blood Pressure Mean 106 99 107 Pulse Ox 99 91 Oxygen Delivery Method Room Air Room Air 02/11/24 23:00 02/11/24 23:02 Temperature 98 F Temperature Source Pulse Rate 60 60 Respiratory Rate 16 16 Blood Pressure 157/128 H 157/128 H Blood Pressure Mean 137 137 Pulse Ox 99 99 Oxygen Delivery Method Room Air Positive well nourished and well developed General Appearance ED: well developed and NAD HEENT Reports normocephalic atraumatic Eyes PERRL and EOMs intact bilaterally Neck supple, no meningeal signs and no JVD Resp normal respiratory effort and clear to auscultation bilaterally Cardio regular rate and regular rhythm GI non-tender and non-distended Palpation: soft Extremity full ROM General Extremety ED: Negative for edema or tenderness General Extremity: Negative for edema Neuro oriented x3, CN's II-XII intact bilaterally and no sensory deficits noted Ashley Coma Scale: document GCS findings Spontaneous Obeys Commands Oriented 15 Sensorium / Orientation: awake and alert Speech: speech normal Motor Exam: strength 5/5 throughout Psych mental status grossly normal MDM MDM MDM Narrative Medical decision making narrative: Differential diagnosis includes intracranial bleeding, infection, migraine headache, tension headache, urinary tract infection, sepsis, cardiac d ysrhythmia, cardiac ischemia, and electrolyte abnormality. CT scan of the brain will be obtained to assess for intracranial bleeding and stroke. EKG will be obtained to assess for cardiac dysrhythmia and cardiac ischemia. CBC will be obtained to assess for leukocytosis and anemia. Basic metabolic profile will be obtained to assess for electrolyte abnormality and renal function. PT with INR and PTT will be obtained to assess for coagulopathy. Urinalysis will be obtained to assess for urinary tract infection and hematuria. High-sensitivity troponin will be obtained to assess for cardiac ischemia. Lab Data Attestation: I reviewed the patient's lab results. Lab results narrative: CBC was reviewed and was within normal limits. Basic metabolic profile was reviewed and was within normal limits. High-sensitivity troponin was reviewed and was normal at 12. PT with INR and PTT were reviewed and were within normal limits. Urinalysis was reviewed. Leukocyte esterase was 25 with 5-10 white blood cells. The remainder was within normal limits. COVID-19 PCR was reviewed and was negative. Influenza PCR was reviewed and was negative for influenza A and influenza B. RSV PCR was reviewed and was negative. Sed rate was reviewed and was normal at 5. CRP was reviewed and was normal at less than 2.9. Labs: Laboratory Results - last 24 hr 02/11/24 02/11/24 02/11/24 16:55 16:59 18:00 WBC 8.4 RBC 5.00 Hgb 13.9 Hct 43.5 MCV 87.0 MCH 27.8 MCHC 32.0 RDW Std Deviation 44.0 H RDW Coeff of Naomie 13.8 Plt Count 223 MPV 11.6 Immature Gran % (Auto) 0.400 Neut % (Auto) 64.8 Lymph % (Auto) 22.0 Beadle % (Auto) 10.2 H Eos % (Auto) 1.8 Baso % (Auto) 0.8 Absolute Neuts (auto) 5.5 Absolute Lymphs (auto) 1.86 Nucleated RBC % 0 ESR 5 PT 13.1 INR 1.0 APTT 26.0 Sodium 141 Potassium 3.5 Chloride 109 H Carbon Dioxide 26.0 Anion Gap 6 BUN 12 Creatinine 0.76 Estim Creat Clear Calc 59.97 Est GFR (MDRD) Af Amer 93 Est GFR (MDRD) Non-Af 77 BUN/Creatinine Ratio 15.7 Glucose 117 H Calcium 9.2 Troponin I High Sens 12 C-React Prot Ext Range < 2.90 Urine Color Yellow Urine Clarity Clear Urine pH 6.5 Ur Specific [place] 1.010 Urine Protein 15 H Urine Glucose (UA) Normal Urine Ketones Negative Urine Occult Blood Negative Urine Nitrite Negative Urine Bilirubin Negative Urine Urobilinogen Normal Ur Leukocyte Esterase 25 H Urine RBC 0 SEEN Urine WBC 5-10 SEEN Ur Squamous Epith Cells 0 SEEN Urine Bacteria RARE Urine Mucus 0 SEEN Radiography Diagnostic Testing: Clinical Impression(s) from Imaging Studies Brain CT 02/11/24 17:23 IMPRESSION: No acute intracranial abnormality. Chronic involutional and ischemic changes of the brain. Electronically Signed: Jim Lei MD at 18:01 EDT , Head CTA 02/11/24 21:26 IMPRESSION: No acute abnormalities. No abnormal enhancement. Absent left PCOM. Electronically Signed: Jim Lei MD at 22:38 EDT , CT scan of the brain was obtained. There is no acute intracranial abnormality. There are chronic involutional changes noted. This was interpreted by the radiologist and was also independently reviewed by myself. CTA of the head was obtained. There is no acute abnormal enhancement. There is no acute abnormality noted. This was interpreted by the radiologist and was also dependently reviewed by myself. EKG Initial EKG: Interpretation: Sinus Rhythm (With occasional PVCs with a rate of 66) and No Acute Injury Pattern Comments: EKG was obtained. On my independent interpretation, it showed a normal sinus rhythm with occasional PVCs with a rate of 66. NM interval, QRS interval, and QTc intervals were all normal. [place] was normal. There are no acute ST or T wave changes. Prior EKG tracings: available for review Prior: Unchanged (01/23/2024) Management Discussion w/another healthcare provider: Hospitalist and Predictive Maintenance Specialist Treatment and Re-Evaluation Narrative: Patient was given Reglan, Benadryl, and morphine. Patient had no improvement of her headache with this. Patient blood pressure was noted to be elevated. Patient was given hydralazine. Patient was given a repeat dose of morphine. Patient had minimal improvement with this. Patient was given a dose of labetalol. Patient's blood pressure started to improve but then started to become worse again. Patient's blood pressure went back up to 190 systolic. Patient was given a dose of Dilaudid. Because of the persistent elevated blood pressure, case was discussed with the hospitalist. She recommended obtaining a CTA of her head and giving the patient clonidine. This was ordered. The patient was advised of the findings. Hospitalist will be in to evaluate and admit the patient for observation. Hospitalist also recommended obtaining a teleneurology consult. I discussed the case with Dr. Rodriguez from [facility]. He recommended treating the patient has a hypertensive encephalopathy and a teleneurology consult can be obtained tomorrow. Patient understood and was agreeable with the plan. All questions were answered. Discharge Plan Dx/Rx/DC Orders Clinical Impression: Headache, Essential (primary) hypertension, DDD (degenerative disc disease), lumbar Disposition Disposition: Acute Care Hospital [facility]
--- NOTE | 2024-02-11 17:23 | CT_ITS ---
EXAMINATION : Head CT w/out contrast HISTORY : Pain COMPARISON : 01/14/2022. TECHNIQUE : Multiple contiguous axial images were obtained from the skull base to the vertex without intravenous contrast. A radiation dose optimization technique was used for this scan. FINDINGS : There is no evidence for acute intracranial hemorrhage, mass effect, or midline shift. There is no extra-axial fluid collection. There are periventricular white matter changes consistent with chronic microvascular ischemic disease. There is sulcal widening and ventricular enlargement consistent with cerebral atrophy. There is normal wang-white differentiation, without CT evidence of acute ischemia or infarct. The skull base and calvarium are unremarkable. The orbits are unremarkable. The paranasal sinuses are clear. The mastoid air cells are well-aerated. The soft tissues are unremarkable. CT/Brain/Head without Contrast IMPRESSION: No acute intracranial abnormality. Chronic involutional and ischemic changes of the brain. Electronically Signed: Jim Lei MD at 18:01 EDT ,
[2024-02-11] MEDS: DiphenhydrAMINE 50 MG/ML Syringe 25 MG IV (17:27)
[2024-02-11] MEDS: Metoclopramide 10 MG/2 ML Vial IV (17:29)
[2024-02-11] MEDS: Morphine 4 MG/ML Syringe IV ×2 (17:29→18:35)
--- NOTE | 2024-02-11 17:31 | EKG12_ITS ---
Test Reason : Blood Pressure : / mmHG Vent. Rate : 066 BPM Atrial Rate : 066 BPM P-R Int : 152 ms QRS Dur : 100 ms QT Int : 416 ms P-R-T Axes : 060 -08 009 degrees QTc Int : 436 ms Sinus rhythm with occasional Premature ventricular complexes Otherwise normal ECG Confirmed by CHERRY MONROE, LASHAE ([id number]), purchasing expeditor [address] ([id number]) on 02/13/2024 6:49:25 AM Referred By: Confirmed By:SALOMÓN CAREY MD
[2024-02-11 17:35] LABS: Absolute Lymphocyte Count 1.86 X10^3/uL (0.83-4.51); Absolute Neutrophil Count 5.5 X10^3/uL (2.0-7.7); Basophil# 0.07 X10^3/uL; Basophil% 0.8 % (0-1); Eosinophil# 0.15 X10^3/uL; Eosinophils% 1.8 % (0-5); Hematocrit 43.5 % (37-47); Hemoglobin 13.9 g/dL (12.0-15.0); Lymphocyte # 1.86 X10^3/ul (0.83-4.51); Mean Corpuscular Hgb 27.8 pg (27.0-32.0); Mean Platelet Vol. 11.6 fl (6.2-12.0); Monocyte# 0.86 X10^3/uL; Monocyte% 10.2 % (0-10); NRBC Flagged by Analyzer 0 % (0-5); Neutrophil # 5.47 X10^3/uL (2.7-7.7); Neutrophil % 64.8 % (47-70); Platelet Count 223 K/mm3 (150-450); RBC Distribution Width CV 13.8 % (11.6-14.6); White Blood Count 8.4 K/mm3 (4.4-11.0)
[2024-02-11 17:47] LABS: Prothrombin Time (Protime)PT. 13.1 SECONDS (11.7-14.9)
[2024-02-11 17:52] LABS: Anion Gap 6 (5-15); BUN 12 mg/dL (7-18); BUN/Creat Ratio 15.7 RATIO (10-20); Calcium,Total 9.2 mg/dL (8.5-10.1); Chloride 109 mmol/L (98-107); Creatinine, Serum 0.76 mg/dL (0.55-1.02); EST Glomerular Filtration Rate 77 mL/min (>60); Est Glom Filt Rate - Afr Amer 93 mL/min (>60); Estimated Creatinine Clearance 59.97 ml/min; Glucose 117 mg/dL (74-106); Potassium 3.5 mmol/L (3.5-5.1); Sodium Level 141 mmol/L (136-145); Troponin-I HS 12 pg/mL (3.0-54.0)
[2024-02-11 18:05] LABS: Mucous, Urine 0 SEEN /hpf (<or=2+); Red Blood Cells-Urine 0 SEEN /hpf (0-5); Squamous Epithelial Cells - UA 0 SEEN /hpf (5-10)
[2024-02-11 18:09] LABS: Color, Urine Yellow (Yellow); Glucose, Dipstick Normal (Normal); Ketone-Dipstick Negative (Negative); Leukocyte Esterase-Dipstick 25 /ul (Negative); Nitrite-Dipstick Negative (Negative); Occult Blood-Urine Negative /ul (Negative); Protein-Dipstick 15 mg/dl (Negative); Urine Bilirubin Dipstick Negative (Negative); Urine Clarity Clear (Clear); Urine Urobilinogen Normal (Normal); Urine pH 6.5 (5.0 - 8.0)
[2024-02-11 18:21] LABS: Bacteria RARE /hpf (None Seen); White Blood Cells 5-10 SEEN /hpf (0-5)
[2024-02-11] MEDS: hydrALAZINE 20 MG/ML Vial 5 MG IV (18:34)
[2024-02-11] MEDS: Labetalol (Prefilled) 20 MG/4 ML 10 MG IV (19:39)
[2024-02-11] MEDS: HYDROmorphone 1 MG/ML Syringe 0.5 MG IV (21:00)
--- NOTE | 2024-02-11 21:26 | CT_ITS ---
INDICATION: Headache EXAMINATION: CTA HEAD WITH AND WITHOUT CONTRAST TECHNIQUE: [place] of [employer]/head CT angiogram protocol was performed following IV contrast. 3D reconstructions were reviewed. A radiation dose optimization technique was used for this scan. IV Contrast dosage and agent: 100 cc of Isovue 370. RADIATION DOSAGE (If Supplied By Facility): CTDIvol = ( 17.65 ) mGy, DLP = ( 449.55 ) mGycm COMPARISON: Prior study dated: 02/11/2024 FINDINGS: BRAIN PARENCHYMA: No intra- or extra-axial hemorrhage. No evidence of acute infarct. No intracranial mass or mass effect. There is preservation of the raman/white matter interface. Posterior fossa structures are unremarkable. No abnormal contrast enhancement. There are periventricular white matter changes consistent with chronic microvascular ischemic disease. CSF SPACES: . There is sulcal widening and ventricular enlargement consistent with cerebral atrophy. No hydrocephalus. Basal cisterns are patent. VASCULATURE: --Anterior circulation: ICAs: No significant stenosis at the intracranial/visualized segments. Atherosclerotic plaques. ACAs: No significant stenosis at the visualized segments. ACOM: Present. MCAs: No significant stenosis at the visualized segments. --Posterior circulation: PCOMs: Absent on the left. tactical air defense controller: No significant stenosis at the visualized segments. BASILAR ARTERY: No significant stenosis. VERTEBRAL ARTERIES: No significant stenosis at the intradural/visualized segments. No evidence of intracranial aneurysm or vascular malformation. CALVARIUM, SKULL BASE, PARANASAL SINUSES AND MASTOID AIR CELLS: Clear. No discrete lytic or blastic abnormalities. ORBITS: Both globes, extraocular muscles, optic nerves and retrobulbar fat appear unremarkable. CT/CTA Head W/WO Contrast IMPRESSION: No acute abnormalities. No abnormal enhancement. Absent left PCOM. Electronically Signed: Jim Lei MD at 22:38 EDT ,
[2024-02-11] MEDS: cloNIDine HCl 0.2 MG Tablet PO (21:34)
[2024-02-11 21:53] LABS: Erythrocyte Sedimentation Rate 5 mm/hr (0-30)
[2024-02-11 21:53] LABS: CRP < 2.90 mg/L (0.0-3.0)
[2024-02-12] VITALS (17 sets, daily range): BP systolic 129–199; BP diastolic 50–79; PULSE 53–71; RESP 16–18; TEMP 36.6–37.7; O2SAT 90–100; BMI 33.3
--- NOTE | 2024-02-12 00:45 | HP.PCM.HOS_ITS ---
HPI - General General Date of Admission: 02/11/24 Date of Service: 02/12/24 Chief Complaint: Headache/altered mental status HPI Narrative ENRIQUE GILLETTE, is a 83 F who presented to the emergency department at [facility] on 02/11/2024 with a chief complaint of headache. The patient indicated all began rather suddenly. Pain started in the occipital area and has since been radiating to the frontal area and now she reports it encompasses her whole head. Nothing exacerbates it and nothing more relates the pain. She admitted to some nausea but denies any vomiting. She has had no paresthesias or focal weakness. She does not have a history of headaches. She has had no visual changes. Family indicated that she was confused earlier today and that the proof machine operator supervisor noted she was driving erratically and took her home. called the EMS and EMS evaluated her and cleared her to stay home however family was concerned and brought her to the emergency department. The patient has no signs of meningismus and denies fever or chills. Vital signs on presentation showed a temperature of 97.3, heart rate 76, respiratory rate was 19, blood pressure was 200/75, and oxygen saturation was 98% on room air. Her CBC was unremarkable, other than a mild monocytosis which appears to be chronic. Chemistry panel was unremarkable with normal renal function. Troponin was normal at 12. Coags were normal. UA was not consistent with infection. Sed rate and CRP were normal. COVID/flu/influenza was negative. EKG showed sinus rhythm with occasional PVCs and a rate of 66 with normal intervals and no ST-T wave changes concerning for acute ischemia. EKG was unchanged from previous. CT of the brain and CTA of the head and neck were both unremarkable for any acute findings as well. The patient was given multiple antihypertensive in the emergency department and treated with several different types of pain medication with no significant resolution of symptoms. The case was discussed with Dr. Rodriguez from [facility] teleneurology and recommended treating the patient as hypertensive encephalopathy and obtain a neurology consult tomorrow. [facility] Medical History Essential (primary) hypertension Hyperlipidemia Atrial dysrhythmia Ventricular tachycardia Thyroid nodule Fatigue Pancreatic insufficiency Overactive bladder Abnormal Holter monitor finding DDD (degenerative disc disease) Hypothyroid HTN (hypertension) Home Medications ?Medication ?Instructions ?Recorded ?Last Taken ?Type aspirin 81 mg tablet,delayed 81 mg PO DAILY 10/31/21 Unknown History release coenzyme Q10 100 mg capsule 100 mg PO QPM 10/31/21 Unknown History rosuvastatin 20 mg tablet 20 mg PO QPM 10/31/21 Unknown History pantoprazole 40 mg tablet,delayed 40 mg PO Q12H 01/22/24 Unknown History release hydrocodone-acetaminophen 5-325mg 1 tab PO BID PRN pain 01/23/24 Unknown History 5mg-325mg levothyroxine 100 mcg tablet 100 mcg PO DAILY 01/23/24 Unknown History metoprolol succinate 50 mg 50 mg PO DAILY #60 tabs 01/23/24 Unknown Rx tablet,extended release 24 hr (Toprol XL) ascorbic acid (vitamin C) 500 mg 500 mg PO DAILY 02/12/24 Unknown History tablet (C-500) Allergy/AdvReac Type Severity Reaction Status Date / Time Penicillins Allergy Intermediate Swelling Verified 02/11/24 16:57 Family History Father Blood clotting tendency CVA (cerebral vascular accident) Brother Blood clotting tendency Hypertension Mother Hypertension CVA (cerebral vascular accident) Sister CAD (coronary artery disease) Son Hypertension Hypercholesterolemia Daughter Hypertension Surgical History Hx laparoscopic cholecystectomy History of total knee replacement (TKR) Hx of carpal tunnel repair History of hip replacement Social History housing: house number of children: 3 current occupational status: retired Smoking Status: Never smoker alcohol intake: never substance use type: does not use ROS Constitutional Constitutional: Denies anorexia, change in weight, chills, fatigue, fever(s), malaise, night sweats, weakness or other Eyes Eyes: Denies blurry vision, change in eye color, change in vision, discharge from eye(s), double vision, erythema, eye pain, loss of vision or other ENT HEENT: Denies abnormal hearing, dysphagia, ear pain, epistaxis, headache(s), hearing loss, nasal congestion, nasal discharge, post nasal drip, sinus pressure, sore throat or other Cardiovascular Cardiovascular: Denies chest pain, claudication, dyspnea on exertion, edema, lightheadedness, orthopnea, palpitations, paroxysmal nocturnal dyspnea, rapid heart rate, syncope or other Respiratory/Chest Respiratory/Chest: Denies cough, dyspnea, excessive phlegm production, hemoptysis, productive cough, shortness of breath at rest, shortness of breath with exertion, wheezing or other Gastrointestinal Gastrointestinal: Denies abdominal pain, coffee ground emesis, constipation, diarrhea, dyspepsia, hematemesis, hematochezia, loose stools, melena, nausea, vomiting or other Genitourinary Genitourinary: Denies burning urination, difficulty urinating, dysuria, hematuria, nocturia, urinary frequency, urinary hesitancy, urinary incontinence, urinary urgency or other Musculoskeletal Musculoskeletal: Denies arthralgias, back pain, joint pain, joint stiffness, joint swelling, myalgias, neck pain or other Neurologic Neurologic: Reports confusion and headache(s); Denies abnormal gait, abnormal speech, disequilibrium, dizziness, focal weakness, numbness, paresthesias, seizure-like activity, seizures, syncope, tingling, tremor(s) or other Psychiatric Psychiatric: Denies anxiety, depression, homicidal ideation, suicidal ideation or other Endocrine Endocrinology: Denies change in body appearance, cold intolerance, excessive sweating, heat intolerance, polydipsia, polyuria or other Hematologic/Lymphatic Hematologic/Lymphatic: Denies anemia, easy bleeding, easy bruising, lymphadenopathy or other Allergic/Immunologic Allergic/Immunologic: Denies rhinitis, hives, eczemia, asthma or other Vital Signs Vital Signs Vital Signs: 02/11/24 16:52 02/11/24 18:01 02/11/24 18:35 Temperature 97.3 F L Temperature Source Temporal Pulse Rate 76 62 63 Respiratory Rate 19 H 23 H Blood Pressure 146/76 H 200/75 H 193/76 H Blood Pressure Mean 99 116 115 Pulse Ox 98 Oxygen Delivery Method Room Air Oxygen Flow Rate (L/min) 02/11/24 18:44 02/11/24 18:54 02/11/24 19:00 Temperature Temperature Source Pulse Rate 68 70 Respiratory Rate 17 Blood Pressure 175/73 H 187/78 H 189/80 H Blood Pressure Mean 107 114 116 Pulse Ox 98 Oxygen Delivery Method Room Air Oxygen Flow Rate (L/min) 02/11/24 19:41 02/11/24 19:48 02/11/24 20:00 Temperature Temperature Source Pulse Rate 82 62 Respiratory Rate 16 16 Blood Pressure 175/75 H 169/69 H 167/87 H Blood Pressure Mean 108 102 113 Pulse Ox 98 98 Oxygen Delivery Method Room Air Oxygen Flow Rate (L/min) 02/11/24 21:00 02/11/24 21:34 02/11/24 22:00 Temperature Temperature Source Pulse Rate 68 60 Respiratory Rate 16 13 Blood Pressure 179/70 H 180/59 H 183/69 H Blood Pressure Mean 106 99 107 Pulse Ox 99 91 Oxygen Delivery Method Room Air Room Air Oxygen Flow Rate (L/min) 02/11/24 23:00 02/11/24 23:02 02/12/24 00:00 Temperature 98 F Temperature Source Pulse Rate 60 60 60 Respiratory Rate 16 16 16 Blood Pressure 157/128 H 157/128 H 166/66 H Blood Pressure Mean 137 137 99 Pulse Ox 99 99 98 Oxygen Delivery Method Room Air Nasal Cannula Oxygen Flow Rate (L/min) 2 Weight Weight: 93.6 kg Body Mass Index (BMI) 36.5 Physical Exam Const alert, healthy appearing and well nourished; Negative for no apparent distress or average body habitus Constitutional Narrative: Obese, elderly, white female, lying in bed, clearly uncomfortable but does not appear toxic, patient oriented to self but confused on birthdate, oriented to place and time, daughter at bedside General Appearance: cooperative HEENT normocephalic, head/scalp atraumatic and moist oral mucous membranes HEENT Narrative: Mild hearing loss, Mallampati 2-3, no thrush Eyes PERRL, EOMs intact bilaterally and conjunctivae normal Eyes Narrative: No scleral icterus Neck no lymphadenopathy and supple Neck Narrative: Trachea midline, no thyroid enlargement Resp normal respiratory effort, no retractions, no use of accessory muscles and clear to auscultation bilaterally Auscultation: Negative for rales, rhonchi or wheezes Cardio regular rate, regular rhythm, S1 normal heart sound, S2 normal heart sound, no murmurs, no rub and no clicks; Negative for no gallops Cardio Narrative: Positive S4 gallop GI normal to inspection, nondistended, normoactive bowel sounds, soft to palpation and non-tender Extremity no clubbing, cyanosis or edema Extremity Narrative: 2+ pedal pulses Neuro CN's II-XII intact bilaterally, moves all extremities and no focal motor deficits Neuro Narrative: Speech itself is normal however processing time appears to be somewhat delayed Psych Psych Narrative: Affect does seem to be off Results Lab / Micro Data 02/11/24 16:59 02/11/24 16:59 Labs: Laboratory Results - last 24 hr 02/11/24 16:55: ESR 5 02/11/24 16:59: WBC 8.4, RBC 5.00, Hgb 13.9, Hct 43.5, MCV 87.0, MCH 27.8, MCHC 32.0, RDW Std Deviation 44.0 H, RDW Coeff of Naomie 13.8, Plt Count 223, MPV 11.6, Immature Gran % (Auto) 0.400, Neut % (Auto) 64.8, Lymph % (Auto) 22.0, [place] % (Auto) 10.2 H, Eos % (Auto) 1.8, Baso % (Auto) 0.8, Absolute Neuts (auto) 5.5, Absolute Lymphs (auto) 1.86, Nucleated RBC % 0, PT 13.1, INR 1.0, APTT 26.0, Sodium 141, Potassium 3.5, Chloride 109 H, Carbon Dioxide 26.0, Anion Gap 6, BUN 12, Creatinine 0.76, Estim Creat Clear Calc 59.97, Est GFR (MDRD) Af Amer 93, Est GFR (MDRD) Non-Af 77, BUN/Creatinine Ratio 15.7, Glucose 117 H, Calcium 9.2, Troponin I High Sens 12, C-React Prot Ext Range < 2.90 02/11/24 18:00: Urine Color Yellow, Urine Clarity Clear, Urine pH 6.5, Ur Specific [place] 1.010, Urine Protein 15 H, Urine Glucose (UA) Normal, Urine Ketones Negative, Urine Occult Blood Negative, Urine Nitrite Negative, Urine Bilirubin Negative, Urine Urobilinogen Normal, Ur Leukocyte Esterase 25 H, Urine RBC 0 SEEN, Urine WBC 5-10 SEEN, Ur Squamous Epith Cells 0 SEEN, Urine Bacteria RARE, Urine Mucus 0 SEEN Micro: Microbiology 02/11/24 21:31 Mucosa - Nose SARS-CoV-2, Influenza & RSV (PCR) - Final Imaging Radiology Impression Brain CT 02/11/24 17:23 IMPRESSION: No acute intracranial abnormality. Chronic involutional and ischemic changes of the brain. Electronically Signed: Jim Lei MD at 18:01 EDT , Head CTA 02/11/24 21:26 IMPRESSION: No acute abnormalities. No abnormal enhancement. Absent left PCOM. Electronically Signed: Jim Lei MD at 22:38 EDT , Assessment & Plan Assessment/Plan (1) Headache: (2) Hypertensive encephalopathy: PLAN: Plan Intractable headache -Etiology is currently unclear -ESR and CRP are negative and there is no temporal artery tenderness -CT and CTA were unremarkable -Scheduled Tylenol 1 g 3 times daily -As needed hydromorphone -Toradol 15 mg x 1 dose -IV fluids -Check MRI with and without contrast and MRV in a.m. -Check TSH -Patient was discussed with [facility] teleneurology by ER physician and they recommended admission with improved blood pressure control and consult to neurology in the morning -Consult teleneurology Hypertensive encephalopathy -Confusion seems to be improving per discussion with daughter however still not the baseline -Concern for PRES -Blood pressure markedly elevated at the time of presentation -Continue home antihypertensives -As needed hydralazine for systolic blood pressure greater than 160 -Start lisinopril 10 mg and may need to uptitrate but currently would like to slowly bring down blood pressure if able -If blood pressure remains significantly elevated may need to consider alpha blockade and rule out pheochromocytoma as beta-blockade without alpha blockade in the presence of a pheochromocytoma can cause hypertensive crisis. -It appears that the metoprolol was initiated by cardiology on 01/23/2024 for arrhythmia -Check echocardiogram -Imaging as above -Consult teleneurology Hypothyroidism -Continue home levothyroxine -Check a.m. TSH GERD -Continue PPI Hyperlipidemia -Continue home rosuvastatin Essential hypertension -Continue home metoprolol -Will likely need further medication as noted above History of atrial dysrhythmia/ventricular tachycardia -Continue beta-anastacio -Echocardiogram has been ordered as an outpatient--> should be able to be discontinued as echo will be done as an inpatient for hypertension -Follows with Dr. Mcqueen Obesity -Complicates treatment, prognosis, outcomes -Recommend weight loss -BMI is 33.3 DVT prophylaxis -Subcu enoxaparin daily CODE STATUS -Full code Charges/Coding Visit Charges Inpatient E&M: 95308 Init Hosp L2
--- NOTE | 2024-02-12 01:17 | MRI_ITS ---
STUDY: EXAMINATION - MRV BRAIN WITHOUT CONTRAST REASON FOR EXAM: Female, 83 years old. Headache, CONFUSION, COMPARE TO CT AND BRAIN MRI TECHNIQUE: 3D [id number] (TOF) imaging was performed in a 1.5 collette MRI scanner. COMPARISON: CTA head with contrast 02/11/2024. FINDINGS: Normal flow within the superior sagittal sinus. Normal flow within the superficial cortical veins. Normal flow within the paired internal cerebral veins, vein of Marco and straight sinus. Normal flow within the bilateral transverse and sigmoid sinuses. Intraluminal filling defects in the lateral aspect of the transverse sinuses due to prominent arachnoid granulations rather than dural sinus thrombosis. This is well visualized on the CTA head. Hypoplastic right sigmoid sinus. Normal flow within the bilateral jugular bulbs. MRI/MRV Head Without Contrast IMPRESSION: Normal unenhanced MRV of the brain. Electronically Signed: Yassine Beltre MD at 11:46 EDT ,
--- NOTE | 2024-02-12 01:17 | MRI_ITS ---
EXAM: MR HEAD WITHOUT AND WITH INTRAVENOUS CONTRAST CLINICAL INDICATION: Intractable headache. Confusion. TECHNIQUE: Multiplanar and multisequence MR images of the brain were obtained without and with intravenous contrast. CONTRAST: 19 mL of IV Clariscan. COMPARISON: CT head without contrast and CTA head with contrast 02/11/2024. FINDINGS: BRAIN AND EXTRA-AXIAL SPACES: Multiple nodular T2 FLAIR hyperintensity foci in both cerebral hemispheres and confluent T2 FLAIR hyperintensity foci in the forceps major both cerebral hemispheres are chronic white matter ischemic changes. No diffusion restriction to suspect acute or subacute ischemic infarct. No remote cortical-based ischemic infarct. Following IV contrast administration, there are no abnormally enhancing lesions intra-axially and extra-axially. No intra- or extra-axial hemorrhage. No intracranial mass or mass effect. Posterior fossa structures are unremarkable. Ventricles are appropriate for age. No hydrocephalus. Basal cisterns are patent. SELLA: Unremarkable. Normal sella turcica, pituitary gland, infundibular stalk, optic chiasm and hypothalamus. AUDITORY SYSTEM: Unremarkable. The internal auditory canals are patent. BONES/JOINTS: Unremarkable. No discrete lytic or blastic abnormalities. SINUSES: Unremarkable as visualized. Clear. MASTOID AIR CELLS: Unremarkable as visualized. Clear. ORBITS: Unremarkable as visualized. Both globes, extraocular muscles, optic nerves and retrobulbar fat appear unremarkable. VASCULATURE: Unremarkable as visualized. Normal flow voids in the major intracranial circulation. MRI/Brain W/WO Contrast IMPRESSION: 1. No MRI evidence of acute or subacute ischemic infarct or remote cortical-based ischemic infarct. 2. Chronic white matter ischemic changes in both cerebral hemispheres, confluent in the forceps major. 3. No abnormal enhancing lesions intra-axially and extra-axially. Electronically Signed: Yassine Beltre MD at 12:00 EDT ,
[2024-02-12] MEDS: Ketorolac 15 MG/ML Vial IV (01:56)
[2024-02-12] MEDS: Lactated Ringers 1,000 ML 75 ML IV ×2 (01:57→19:39)
[2024-02-12] MEDS: hydrALAZINE 20 MG/ML Vial 10 MG IV ×2 (01:57→21:01)
--- NOTE | 2024-02-12 02:24 | ECHOCS_ITS ---
Reason For Study: HTN Procedure This was a 2D Doppler, Color Flow transthoracic echocardiogram. Contrast injection was performed. Exam performed portable in patient room. Left Ventricle Normal LV size. The estimated ejection fraction is 60 %. Diastolic function is indeterminate. No regional wall motion abnormalities noted. Right Ventricle Normal RV size. Normal systolic function. Atria There is mild biatrial dilatation. No doppler evidence for ASD. Mitral Valve There is no mitral valve stenosis. No mitral valve insufficiency. Tricuspid Valve There is no tricuspid stenosis. Unable to estimate RV systolic pressure due to inadequate jet, pulmonary artery pressure probably normal. Aortic Valve Aortic sclerosis, no stenosis. Trisinus/trileaflet aortic valve. There is no aortic stenosis. No aortic valve insufficiency. Pulmonic Valve There is no pulmonic valvular stenosis. No pulmonic valve insufficiency. Great Vessels Normal aortic root. Pericardium/Pleural No pericardial effusion. Medication Diluted definity 1ml given slow IV push to enhance endocardial definition. MMode/2D Measurements & Calculations LVIDd: 5.7 cm IVSd: 1.3 cm Ao root diam: 3.4 cm LVIDs: 4.0 cm LVPWd: 1.2 cm LA dimension: 3.8 cm FS: 29.2 % LAV(MOD-bp): 72.3 ml LVAd ap4: 37.5 cm2 SV(MOD-sp4): 70.8 ml LAV(MOD-bp) Indexed: 35.7 ml/m2 LVLd ap4: 8.2 cm LAV(MOD-sp2): 71.5 ml EDV(MOD-sp4): 142.3 ml LAV(MOD-sp4): 72.1 ml EDV(sp4-el): 145.2 ml LVAs ap4: 24.3 cm2 LVLs ap4: 7.2 cm ESV(MOD-sp4): 71.6 ml ESV(sp4-el): 69.4 ml EF(MOD-sp4): 49.7 % EF(sp4-el): 52.2 % SV(sp4-el): 75.8 ml LA A4 area: 24.1 cm2 RA A4 area: 21.2 cm2 TAPSE: 2.1 cm Time Measurements MV dec time: 0.33 sec Doppler Measurements & Calculations MV E max seth: 59.1 cm/sec Lat Peak E' Seth: 5.9 cm/sec Med Peak E' Seth: 6.5 cm/sec MV A max seth: 96.3 cm/sec E/E' lat: 10.0 E/E' med: 9.1 MV E/A: 0.61 MV V2 max: 95.9 cm/sec MV P1/2t max seth: 72.4 cm/sec Ao V2 max: 145.4 cm/sec MV max P.7 mmHg MV P1/2t: 124.1 msec Ao max P.5 mmHg MV V2 mean: 51.9 cm/sec Ao V2 mean: 94.5 cm/sec MV mean P.2 mmHg MV dec slope: 170.9 cm/sec2 Ao mean P.3 mmHg MV V2 VTI: 39.2 cm MVA(P1/2t): 1.8 cm2 Ao V2 VTI: 30.8 cm AV (velocity ratio): 0.66 LV V1 max: 94.9 cm/sec PA V2 max: 70.7 cm/sec LV V1 max P.6 mmHg LV V1 mean P.2 mmHg LV V1 mean: 69.9 cm/sec LV V1 VTI: 20.4 cm ECHO/Echo Complete W/ Contrast Interpretation Summary The estimated ejection fraction is 60 %. Diastolic function is indeterminate. There is mild biatrial dilatation. Ordering Physician: Trinity Wright Referring Physician: Dylan Renteria Performed By: Clinton Scherer RCS
[2024-02-12] MEDS: Lisinopril 10 MG Tablet PO ×2 (02:49→08:23)
[2024-02-12] MEDS: Levothyroxine 100 MCG Tablet PO (05:19)
[2024-02-12] MEDS: Acetaminophen 500 MG Tablet 1000 MG PO ×3 (05:19→20:51)
[2024-02-12 07:16] LABS: Absolute Lymphocyte Count 1.54 X10^3/uL (0.83-4.51); Absolute Neutrophil Count 7.1 X10^3/uL (2.0-7.7); Basophil# 0.08 X10^3/uL; Basophil% 0.8 % (0-1); Eosinophil# 0.03 X10^3/uL; Eosinophils% 0.3 % (0-5); Hematocrit 39.2 % (37-47); Hemoglobin 12.3 g/dL (12.0-15.0); Lymphocyte # 1.54 X10^3/ul (0.83-4.51); Lymphocyte % 15.4 % (19-41); Mean Corp Hgb Conc 31.4 g/dL (32-36); Mean Corpuscular Hgb 27.7 pg (27.0-32.0); Mean Corpuscular Volume 88.3 fL (81-99); Mean Platelet Vol. 11.5 fl (6.2-12.0); Monocyte# 1.18 X10^3/uL; Monocyte% 11.8 % (0-10); NRBC Flagged by Analyzer 0 % (0-5); Neutrophil # 7.13 X10^3/uL (2.7-7.7); Neutrophil % 71.3 % (47-70); Platelet Count 225 K/mm3 (150-450); RBC Distribution Width SD 45.3 fl (35.1-43.9); Red Blood Count 4.44 M/mm3 (4.2-5.4)
--- NOTE | 2024-02-12 07:41 | PCM.PN.HOSP ---
Reason for Visit Reason for Visit: Diagnoses Hypertensive encephalopathy (02/12/24) Headache, unspecified (02/12/24) Subjective Subjective Patient is an 83-year-old lady admitted with intractable headache associated with erratic behavior. Patient admitted to a monitored bed for subsequent management Objective Data Objective Data Vital Signs: Vital Signs Temp Pulse Resp BP Pulse Ox O2 Del Method O2 Flow Rate 99.8 F H 68 18 141/54 H 98 Nasal Cannula 2 02/12/24 06:00 02/12/24 06:00 02/12/24 06:00 02/12/24 06:00 02/12/24 06:00 02/12/24 06:00 02/12/24 06:00 Oxygen Flow Rate (L/min) 2 Oxygen Delivery Method Nasal Cannula Weight: 93.7 kg Body Mass Index (BMI) 33.3 Intake & Output: Intake and Output for Last 24 Hours 02/10/24 02/11/24 02/12/24 23:59 23:59 23:59 Intake Total 400 / 400 Output Total 450 / 450 Balance -50 / -50 Lab / Micro Data 02/12/24 06:44 02/12/24 06:44 Labs: Laboratory Results - last 24 hr 02/11/24 16:55: ESR 5 02/11/24 16:59: WBC 8.4, RBC 5.00, Hgb 13.9, Hct 43.5, MCV 87.0, MCH 27.8, MCHC 32.0, RDW Std Deviation 44.0 H, RDW Coeff of Naomie 13.8, Plt Count 223, MPV 11.6, Immature Gran % (Auto) 0.400, Neut % (Auto) 64.8, Lymph % (Auto) 22.0, [place] % (Auto) 10.2 H, Eos % (Auto) 1.8, Baso % (Auto) 0.8, Absolute Neuts (auto) 5.5, Absolute Lymphs (auto) 1.86, Nucleated RBC % 0, PT 13.1, INR 1.0, APTT 26.0, Sodium 141, Potassium 3.5, Chloride 109 H, Carbon Dioxide 26.0, Anion Gap 6, BUN 12, Creatinine 0.76, Estim Creat Clear Calc 59.97, Est GFR (MDRD) Af Amer 93, Est GFR (MDRD) Non-Af 77, BUN/Creatinine Ratio 15.7, Glucose 117 H, Calcium 9.2, Troponin I High Sens 12, C-React Prot Ext Range < 2.90 02/11/24 18:00: Urine Color Yellow, Urine Clarity Clear, Urine pH 6.5, Ur Specific [place] 1.010, Urine Protein 15 H, Urine Glucose (UA) Normal, Urine Ketones Negative, Urine Occult Blood Negative, Urine Nitrite Negative, Urine Bilirubin Negative, Urine Urobilinogen Normal, Ur Leukocyte Esterase 25 H, Urine RBC 0 SEEN, Urine WBC 5-10 SEEN, Ur Squamous Epith Cells 0 SEEN, Urine Bacteria RARE, Urine Mucus 0 SEEN 02/12/24 06:44: WBC 10.0, RBC 4.44, Hgb 12.3, Hct 39.2, MCV 88.3, MCH 27.7, MCHC 31.4 L, RDW Std Deviation 45.3 H, RDW Coeff of Naomie 14.0, Plt Count 225, MPV 11.5, Immature Gran % (Auto) 0.400, Neut % (Auto) 71.3 H, Lymph % (Auto) 15.4 L, [place] % (Auto) 11.8 H, Eos % (Auto) 0.3, Baso % (Auto) 0.8, Absolute Neuts (auto) 7.1, Absolute Lymphs (auto) 1.54, Nucleated RBC % 0 Micro: Microbiology 02/11/24 21:31 Mucosa - Nose SARS-CoV-2, Influenza & RSV (PCR) - Final Radiography Diagnostic Testing: Radiology Impression Brain CT 02/11/24 17:23 IMPRESSION: No acute intracranial abnormality. Chronic involutional and ischemic changes of the brain. Electronically Signed: Jim Lei MD at 18:01 EDT , Head CTA 02/11/24 21:26 IMPRESSION: No acute abnormalities. No abnormal enhancement. Absent left PCOM. Electronically Signed: Jim Lei MD at 22:38 EDT , Physical Exam Narrative GENERAL: Somewhat lethargic (patient did receive Ativan for MRI) HEENT: Atraumatic; normocephalic EYES; Anicteric, Normal Conjunctiva NECK; supple, normal thyroid, RESPIRATORY: Diminished to auscultation CARDIOVASCULAR: Regular S1 S2, GI: soft, normoactive bowel sounds, : No Renal angle tenderness; EXTREMITIES: No edema, no clubbing, MUSCULOSKELETAL: no muscle wasting NEURO: Awake; no lateralizing signs. SKIN: No Rash PSYCH; Flat affect Assessment & Plan Assessment/Plan (1) Headache: (2) Hypertensive encephalopathy: PLAN: Plan Patient is an 83-year-old lady admitted with intractable headache associated with erratic behavior. Patient admitted to a monitored bed for subsequent management 1. Intractable headache ? Etiology undetermined at this point. Patient admitted to monitored bed treated symptomatically [facility] aggressive blood pressure control as well as subsequent imaging studies with MRI 2. Acute hypertensive encephalopathy with concern for PRES ? Admitted to monitored bed patient is on metoprolol resumed added lisinopril with hydralazine as needed for systolic blood pressure greater than 160. Patient to undergo subsequent evaluation with MRI 3. Hypothyroidism ? Patient is on levothyroxine home dose continued 4. Dyslipidemia ?Patient is on statin therapy, continued at home dose 5. GERD ? On PPI History of atrial dysrhythmia/ventricular tachycardia -Patient is on beta-blockers continued patient is followed by cardiology as outpatient plan is for patient to resume care following discharge 6. Class I obesity with BMI of 33 7. DVT prophylaxis ? On enoxaparin Time spent in the patient's overall evaluation,decision-making process, review of diagnostic data, adjustment of management, discussion with other providers, nursing nursing and ancillary staff involved in patient's care documentation, 52-minutes Charges/Coding Visit Charges Inpatient E&M: 74230 [facility] [[email or web address]] Hosp L3
[2024-02-12 08:00] LABS: AST(SGOT) 16 U/L (15-37); Alanine Aminotransfer ALT/SGPT 21 U/L (13-56); Albumin, Serum 3.1 g/dL (3.2-5.0); Alkaline Phosphatase 82 U/L (45-117); Anion Gap 7 (5-15); BUN 11 mg/dL (7-18); BUN/Creat Ratio 13.6 RATIO (10-20); Calcium,Total 8.6 mg/dL (8.5-10.1); Chloride 106 mmol/L (98-107); Creatinine, Serum 0.81 mg/dL (0.55-1.02); EST Glomerular Filtration Rate 72 mL/min (>60); Est Glom Filt Rate - Afr Amer 87 mL/min (>60); Estimated Creatinine Clearance 62.83 ml/min; Glucose 124 mg/dL (74-106); Phosphorus 3.2 mg/dL (2.5-4.9); Potassium 3.6 mmol/L (3.5-5.1); Protein, Total 6.1 g/dL (6.4-8.2); Sodium Level 137 mmol/L (136-145); Thyroid Stim Hormone (TSH) 0.284 uIU/mL (0.358-3.740)
[2024-02-12] MEDS: Enoxaparin 40 MG/0.4 ML Syringe SC (08:22)
[2024-02-12] MEDS: Aspirin E.C. 81 MG Tablet PO (08:23)
[2024-02-12] MEDS: HYDROmorphone 0.5 MG/0.5 ML SYRINGE IV (08:23)
[2024-02-12] MEDS: Metoprolol(XL)Succ 50 MG Tablet PO (08:23)
[2024-02-12] MEDS: Pantoprazole Sodium 40 MG Tablet PO ×2 (08:23→17:03)
[2024-02-12] MEDS: LORazepam 2 MG/ML Syringe 0.5 MG IV (10:06)
--- NOTE | 2024-02-12 13:02 | NEURO.CONS ---
Assessment and Plan: Neuro Assessment/Plan ENRIQUE GILLETTE is a 83 F admitted with acute onset headache and confusion . No meningeal signs. No fever. Also denies visual symptoms/ focal deficits, ESR/CRP normal. Concern for hypertensive encephalopathy Symptoms are improving with control in BP . MRI brain/CT head / CT angio/ MRV is normal. Diagnosis: Hypertensive encephalopathy Plan: Recommend amitriptyline 25 mg for a week followed by 50 mg QHS for headache. Follow up with local Neurologist in 6 weeks. I personally attended this patient and spent a total time of 50 minutes evaluating this patient including clinical assessment, review of chart, medical history imaging, and determining appropriate treatment and workup. Bernabe Calzada MD [facility] Tele Neurology Department HPI Consult Data Date of Consult: 02/12/24 HPI Narrative HPI Narrative: As per HPI: ENRIQUE GILLETTE, is a 83 F who presented to the emergency department at [facility] on 02/11/2024 with a chief complaint of headache. The patient indicated all began rather suddenly. Pain started in the occipital area and has since been radiating to the frontal area and now she reports it encompasses her whole head. Nothing exacerbates it and nothing more relates the pain. She admitted to some nausea but denies any vomiting. She denied focal weakness . She does not have a history of headaches. She has had no visual changes. Family indicated that she was confused earlier today and that the certified novell administrator noted she was driving erratically and took her home. called the EMS and EMS evaluated her and cleared her to stay home however family was concerned and brought her to the emergency department. The patient has no signs of meningismus and denies fever or chills. Vital signs on presentation showed a temperature of 97.3, heart rate 76, respiratory rate was 19, blood pressure was 200/75, and oxygen saturation was 98% on room air. Her CBC was unremarkable, other than a mild monocytosis which appears to be chronic. Chemistry panel was unremarkable with normal renal function. Troponin was normal at 12. Coags were normal. UA was not consistent with infection. Sed rate and CRP were normal. COVID/flu/influenza was negative. EKG showed sinus rhythm with occasional PVCs and a rate of 66 with normal intervals and no ST-T wave changes concerning for acute ischemia. EKG was unchanged from previous. CT of the brain and CTA of the head and neck were both unremarkable for any acute findings as well. [facility] Medical History Essential (primary) hypertension Hyperlipidemia Atrial dysrhythmia Ventricular tachycardia Thyroid nodule Fatigue Pancreatic insufficiency Overactive bladder Abnormal Holter monitor finding DDD (degenerative disc disease) Hypothyroid HTN (hypertension) Home Medications ?Medication ?Instructions ?Recorded ?Last Taken ?Type aspirin 81 mg tablet,delayed 81 mg PO DAILY 10/31/21 Unknown History release coenzyme Q10 100 mg capsule 100 mg PO QPM 10/31/21 Unknown History rosuvastatin 20 mg tablet 20 mg PO QPM 10/31/21 Unknown History pantoprazole 40 mg tablet,delayed 40 mg PO Q12H 01/22/24 Unknown History release hydrocodone-acetaminophen 5-325mg 1 tab PO BID PRN pain 01/23/24 Unknown History 5mg-325mg levothyroxine 100 mcg tablet 100 mcg PO DAILY 01/23/24 Unknown History metoprolol succinate 50 mg 50 mg PO DAILY #60 tabs 01/23/24 Unknown Rx tablet,extended release 24 hr (Toprol XL) ascorbic acid (vitamin C) 500 mg 500 mg PO DAILY 02/12/24 Unknown History tablet (C-500) Allergy/AdvReac Type Severity Reaction Status Date / Time Penicillins Allergy Intermediate Swelling Verified 02/11/24 16:57 Family History Father Blood clotting tendency CVA (cerebral vascular accident) Brother Blood clotting tendency Hypertension Mother Hypertension CVA (cerebral vascular accident) Sister CAD (coronary artery disease) Son Hypertension Hypercholesterolemia Daughter Hypertension Surgical History Hx laparoscopic cholecystectomy History of total knee replacement (TKR) Hx of carpal tunnel repair History of hip replacement Social History housing: house number of children: 3 current occupational status: retired Smoking Status: Never smoker alcohol intake: never substance use type: does not use Vital Signs Vital Signs Vital Signs: 02/11/24 16:52 02/11/24 18:01 02/11/24 18:35 Temperature 97.3 F L Temperature Source Temporal Pulse Rate 76 62 63 Respiratory Rate 19 H 23 H Blood Pressure 146/76 H 200/75 H 193/76 H Blood Pressure Mean 99 116 115 Blood Pressure Source Blood Pressure Position Blood Pressure Location Pulse Ox 98 Oxygen Delivery Method Room Air Oxygen Flow Rate (L/min) 02/11/24 18:44 02/11/24 18:54 02/11/24 19:00 Temperature Temperature Source Pulse Rate 68 70 Respiratory Rate 17 Blood Pressure 175/73 H 187/78 H 189/80 H Blood Pressure Mean 107 114 116 Blood Pressure Source Blood Pressure Position Blood Pressure Location Pulse Ox 98 Oxygen Delivery Method Room Air Oxygen Flow Rate (L/min) 02/11/24 19:41 02/11/24 19:48 02/11/24 20:00 Temperature Temperature Source Pulse Rate 82 62 Respiratory Rate 16 16 Blood Pressure 175/75 H 169/69 H 167/87 H Blood Pressure Mean 108 102 113 Blood Pressure Source Blood Pressure Position Blood Pressure Location Pulse Ox 98 98 Oxygen Delivery Method Room Air Oxygen Flow Rate (L/min) 02/11/24 21:00 02/11/24 21:34 02/11/24 22:00 Temperature Temperature Source Pulse Rate 68 60 Respiratory Rate 16 13 Blood Pressure 179/70 H 180/59 H 183/69 H Blood Pressure Mean 106 99 107 Blood Pressure Source Blood Pressure Position Blood Pressure Location Pulse Ox 99 91 Oxygen Delivery Method Room Air Room Air Oxygen Flow Rate (L/min) 02/11/24 23:00 02/11/24 23:02 02/12/24 00:00 Temperature 98 F Temperature Source Pulse Rate 60 60 60 Respiratory Rate 16 16 16 Blood Pressure 157/128 H 157/128 H 166/66 H Blood Pressure Mean 137 137 99 Blood Pressure Source Blood Pressure Position Blood Pressure Location Pulse Ox 99 99 98 Oxygen Delivery Method Room Air Nasal Cannula Oxygen Flow Rate (L/min) 2 02/12/24 01:15 02/12/24 01:57 02/12/24 02:18 Temperature 97.9 F 97.9 F Temperature Source Temporal Temporal Pulse Rate 68 60 66 Respiratory Rate 18 16 Blood Pressure 199/65 H 199/65 H 145/76 H Blood Pressure Mean 109 99 Blood Pressure Source Monitor Monitor Blood Pressure Position Supine Semi-Fowlers Blood Pressure Location Left Arm Right Arm Pulse Ox 100 98 Oxygen Delivery Method Room Air Nasal Cannula Oxygen Flow Rate (L/min) 2 02/12/24 03:11 02/12/24 06:00 02/12/24 08:09 Temperature 99.8 F H 99.4 F H Temperature Source Temporal Temporal Pulse Rate 68 71 Respiratory Rate 18 18 Blood Pressure 141/54 H 136/68 H Blood Pressure Mean 83 90 Blood Pressure Source Monitor Blood Pressure Position Semi-Fowlers Blood Pressure Location Right Arm Pulse Ox 95 98 94 Oxygen Delivery Method Nasal Cannula Nasal Cannula Room Air Oxygen Flow Rate (L/min) 2 2 02/12/24 08:23 02/12/24 10:09 02/12/24 10:19 Temperature Temperature Source Pulse Rate 71 62 60 Respiratory Rate 16 16 Blood Pressure 136/68 H 162/52 H 131/55 H Blood Pressure Mean 88 80 Blood Pressure Source Monitor Monitor Blood Pressure Position Supine Supine Blood Pressure Location Right Arm Right Arm Pulse Ox 94 93 Oxygen Delivery Method Room Air Room Air Oxygen Flow Rate (L/min) 02/12/24 10:29 02/12/24 10:39 02/12/24 10:49 Temperature Temperature Source Pulse Rate 55 L 70 53 L Respiratory Rate 16 16 16 Blood Pressure 139/50 H 146/51 H 142/75 H Blood Pressure Mean 79 82 97 Blood Pressure Source Monitor Monitor Monitor Blood Pressure Position Supine Supine Supine Blood Pressure Location Right Arm Right Arm Right Arm Pulse Ox 90 93 93 Oxygen Delivery Method Room Air Blow-by Blow-by Oxygen Flow Rate (L/min) 02/12/24 10:59 Temperature Temperature Source Pulse Rate 60 Respiratory Rate 16 Blood Pressure 129/51 H Blood Pressure Mean 77 Blood Pressure Source Monitor Blood Pressure Position Supine Blood Pressure Location Right Arm Pulse Ox 96 Oxygen Delivery Method Room Air Oxygen Flow Rate (L/min) Weight Weight: 93.7 kg Body Mass Index (BMI) 33.3 EEG Results Procedure Details EEG Procedure Details: ENRIQUE GILLETTE is a 83 year old F with a past medical history of , who presents for evaluation of Electroencephalogram on DATE at TIME Physical Exam Neuro Neuro Narrative: -? General: Laying comfortably in bed; in no acute distress. -? HENT: Normal oropharynx and mucosa. Normal external appearance of ears and nose. Exophthalmos. -? Neck: Supple, no pain or tenderness -? CV:? No peripheral edema. -? Pulmonary:? Normal respiratory effort. -? Ext: No cyanosis, edema, or deformity -? Skin: No rash. Normal palpation of skin.? -? Musculoskeletal: full range of motion; no joint tenderness. Normal digits and nails by inspection. No clubbing. -? NEURO: -? Mental Status: The patient was alert and oriented to time, place, and person. Normal recent/remote memory, concentration, and general fund of knowledge. -? Language: speech is fluent? Naming, repetition, fluency, and comprehension intact. -? Cranial Nerves: PERRL mm/brisk. EOMI, visual bush full, no facial asymmetry, facial sensation intact, hearing intact, tongue midline, no evidence of atrophy or fibrillations. As performed by the nurse. Sternocleidomastoid and trapezius were equally strong. Soft palate raises equally, no uvular deviations -? Motor: normal bulk, tone, and strength throughout. No pronator drift or satelliting. Upper and lower extremities equal bilaterally. R L R L -? Tone: is normal and bulk is normal -? Sensation- Intact to light touch bilaterally -? Coordination: No dysmetria on [id number]. -? Gait- deferred Lab / Micro Data 02/12/24 06:44 02/12/24 06:44 Labs: Laboratory Results - last 24 hr 02/11/24 16:55: ESR 5 02/11/24 16:59: WBC 8.4, RBC 5.00, Hgb 13.9, Hct 43.5, MCV 87.0, MCH 27.8, MCHC 32.0, RDW Std Deviation 44.0 H, RDW Coeff of Naomie 13.8, Plt Count 223, MPV 11.6, Immature Gran % (Auto) 0.400, Neut % (Auto) 64.8, Lymph % (Auto) 22.0, Davie % (Auto) 10.2 H, Eos % (Auto) 1.8, Baso % (Auto) 0.8, Absolute Neuts (auto) 5.5, Absolute Lymphs (auto) 1.86, Nucleated RBC % 0, PT 13.1, INR 1.0, APTT 26.0, Sodium 141, Potassium 3.5, Chloride 109 H, Carbon Dioxide 26.0, Anion Gap 6, BUN 12, Creatinine 0.76, Estim Creat Clear Calc 59.97, Est GFR (MDRD) Af Amer 93, Est GFR (MDRD) Non-Af 77, BUN/Creatinine Ratio 15.7, Glucose 117 H, Calcium 9.2, Troponin I High Sens 12, C-React Prot Ext Range < 2.90 02/11/24 18:00: Urine Color Yellow, Urine Clarity Clear, Urine pH 6.5, Ur Specific [place] 1.010, Urine Protein 15 H, Urine Glucose (UA) Normal, Urine Ketones Negative, Urine Occult Blood Negative, Urine Nitrite Negative, Urine Bilirubin Negative, Urine Urobilinogen Normal, Ur Leukocyte Esterase 25 H, Urine RBC 0 SEEN, Urine WBC 5-10 SEEN, Ur Squamous Epith Cells 0 SEEN, Urine Bacteria RARE, Urine Mucus 0 SEEN 02/12/24 06:44: WBC 10.0, RBC 4.44, Hgb 12.3, Hct 39.2, MCV 88.3, MCH 27.7, MCHC 31.4 L, RDW Std Deviation 45.3 H, RDW Coeff of Naomie 14.0, Plt Count 225, MPV 11.5, Immature Gran % (Auto) 0.400, Neut % (Auto) 71.3 H, Lymph % (Auto) 15.4 L, Davie % (Auto) 11.8 H, Eos % (Auto) 0.3, Baso % (Auto) 0.8, Absolute Neuts (auto) 7.1, Absolute Lymphs (auto) 1.54, Nucleated RBC % 0, Sodium 137, Potassium 3.6, Chloride 106, Carbon Dioxide 24.0, Anion Gap 7, BUN 11, Creatinine 0.81, Estim Creat Clear Calc 62.83, Est GFR (MDRD) Af Amer 87, Est GFR (MDRD) Non-Af 72, BUN/Creatinine Ratio 13.6, Glucose 124 H, Calcium 8.6, Phosphorus 3.2, Magnesium 2.0, Total Bilirubin 0.70, AST 16, ALT 21, Alkaline Phosphatase 82, Total Protein 6.1 L, Albumin 3.1 L, Globulin 3.0, Albumin/Globulin Ratio 1.0, TSH 0.284 L Micro: Microbiology 02/11/24 21:31 Mucosa - Nose SARS-CoV-2, Influenza & RSV (PCR) - Final Imaging Radiology Impression Brain CT 02/11/24 17:23 IMPRESSION: No acute intracranial abnormality. Chronic involutional and ischemic changes of the brain. Electronically Signed: Jim Lei MD at 18:01 EDT , Head CTA 02/11/24 21:26 IMPRESSION: No acute abnormalities. No abnormal enhancement. Absent left PCOM. Electronically Signed: Jim Lei MD at 22:38 EDT , Brain MRI 02/12/24 01:17 IMPRESSION: 1. No MRI evidence of acute or subacute ischemic infarct or remote cortical-based ischemic infarct. 2. Chronic white matter ischemic changes in both cerebral hemispheres, confluent in the forceps major. 3. No abnormal enhancing lesions intra-axially and extra-axially. Electronically Signed: Yassine Beltre MD at 12:00 EDT , Brain MRI 02/12/24 01:17 IMPRESSION: Normal unenhanced MRV of the brain. Electronically Signed: Yassine Beltre MD at 11:46 EDT , Active Medications Active Medications Active Medications: Current Medications Generic Name Dose Route Start Last Admin Trade Name Freq PRN Reason Stop Dose Admin Acetaminophen 1,000 mg 02/12/24 06:00 02/12/24 05:19 Acetaminophen 500 Mg Tablet PO 1,000 mg Q8 [facility] Administration Aspirin 81 mg 02/12/24 10:00 02/12/24 08:23 Aspirin E.C. 81 Mg Tablet PO 81 mg DAILY DENISHA Administration Atorvastatin Calcium 40 mg 02/12/24 22:00 Atorvastatin Calcium 40 Mg Tablet PO QHS [facility] Enoxaparin Sodium 40 mg 02/12/24 10:00 02/12/24 08:22 Enoxaparin 40 Mg/0.4 Ml Syringe SC 40 mg DAILY [facility] Administration Hydralazine HCl 10 mg 02/12/24 01:17 02/12/24 01:57 Hydralazine 20 Mg/Ml Vial IV 10 mg Q6H PRN PRN Administration SBP>160 Protocol Hydromorphone HCl 0.5 mg 02/12/24 01:17 02/12/24 08:23 Hydromorphone 0.5 Mg/0.5 Ml Syringe IV 0.5 mg Q3H PRN PRN Administration Pain Score 6-10 Lactated Ringer's 1,000 mls @ 75 mls/hr 02/12/24 01:17 02/12/24 01:57 IV 75 mls/hr .[id number] [facility] Administration Levothyroxine Sodium 100 mcg 02/12/24 06:00 02/12/24 05:19 Levothyroxine 100 Mcg Tablet PO 100 mcg DAILY@0600 [facility] Administration Lisinopril 10 mg 02/12/24 10:00 02/12/24 08:23 Lisinopril 10 Mg Tablet PO 10 mg DAILY [facility] Administration Protocol Melatonin 3 mg 02/12/24 01:17 Melatonin 3 Mg Tablet PO QHS PRN PRN INSOMNIA Metoprolol Succinate 50 mg 02/12/24 10:00 02/12/24 08:23 Metoprolol(Xl)Succ 50 Mg Tablet PO 50 mg DAILY [facility] Administration Protocol Ondansetron HCl 4 mg 02/12/24 01:17 Ondansetron 4 Mg/2 Ml Vial IV Q8H PRN PRN NAUSEA/VOMITING Pantoprazole Sodium 40 mg 02/12/24 08:00 02/12/24 08:23 Pantoprazole Sodium 40 Mg Tablet PO 40 mg BIDCM DENISHA Administration Prochlorperazine Edisylate 5 mg 02/12/24 01:17 Prochlorperazine 10 Mg/2 Ml Vial IV Q4H PRN PRN Breakthrough Nausea/Vomiting Senna/Docusate Sodium 2 tablet 02/12/24 01:17 Senna/Docusate Sodium 1 Tablet PO BID PRN PRN Constipation Sodium Chloride 10 - 40 ml 02/12/24 01:19 0.9% Saline Lock 10 Ml Syringe IV UD PRN SALINE FLUSH
--- NOTE | 2024-02-12 14:04 | CASEMGMT ---
ANTONIO JONES Assessment: Face to Face with pt for initial transition planning/care coordination assessment. ANTONIO JONES introduced self and role at [facility], pt voices understanding and consents to assessment. Pt is O x4, drowsy and answers all questions appropriately at this time. Pt dtr, brother, sister and sister in law present in room. Pt agreeable to assessment with visitors present. Care providers, pharmacy, and demographics verified/updated. Admitting Dx: HTN encephalopathy Strata Score: 1 PCP:D[facility] Specialists:Charisse, cardio; Basali, pain mgmt Preferred Pharmacy: [facility] Insurance: [employer] [facility] Prescription Benefit: yes LNOK: Lisseth Boogie, dtr Living Arrangements: Pt lives alone in a single story home with 2 steps to enter with a grab bar. Pt reports she is I in ADLs and IADLs at this time. Pt denies concerns at home. Transportation: Pt drives self and denies concerns with transportation. DME:shower chair, rollator, walker- pt does not use AD typically HHC/SNF: Denies hx of Pt states no concerns with going home at time of dc. Discussed how pt felt her therapy session went today. Spoke with therapists who stated pt has some issues with her vision on left. Pt did not recall this. Pt states no further concerns/needs. CM to follow therapy. Advised pt to ask CM if any further question/concerns/needs arise, voices understanding. Pt Goal: Home Plan: TBD pending therapy and course of hospitalization Andrzej ALVAREZ CM
[2024-02-12] MEDS: Amitriptyline 25 MG Tablet PO (14:37)
--- NOTE | 2024-02-12 16:16 | CHAPLAIN ---
Type of Pastoral Visit ___ Initial Visit ___ Follow-up Visit ___ On-call Visit ___ General Patient Visit ___ Spiritual Assessment ___ Family Conference ___ Bereavement ___ Rapid Response ___ Code Blue ___ Other (describe below) Pastoral Care Referral From ___ Patient ___ Family ___ Nurse ___ Physician ___ Technical Program Manager ___ Office Communication Professor ___ Other (describe below) Sacrament/Intervention ___ Active listening ___ Anointing ___ Christianity ___ Bereavement ___ Communion ___ Soheila exploration ___ ___ Life review ___ Prayer ___ Reconciliation ___ Sacrament of Sick ___ Supportive presence ___ Wedding ___ Other (describe below) Pastoral Comments patient was having a procedure when visit was attempted
[2024-02-12] MEDS: Atorvastatin Calcium 40 MG Tablet PO (20:51)
[2024-02-12] MEDS: 0.9% Saline Lock 10 ML Syringe IV (21:02)
[2024-02-13] VITALS (11 sets, daily range): BP systolic 158–198; BP diastolic 54–82; PULSE 61–97; RESP 14–16; TEMP 36.6–36.9; O2SAT 92–98
[2024-02-13] MEDS: HYDROmorphone 0.5 MG/0.5 ML SYRINGE IV ×3 (01:16→16:56)
[2024-02-13] MEDS: 0.9% Saline Lock 10 ML Syringe IV ×3 (01:16→16:57)
[2024-02-13] MEDS: Acetaminophen 500 MG Tablet 1000 MG PO ×3 (05:33→21:50)
[2024-02-13] MEDS: Levothyroxine 100 MCG Tablet PO (05:33)
[2024-02-13] MEDS: hydrALAZINE 20 MG/ML Vial 10 MG IV (05:52)
--- NOTE | 2024-02-13 08:08 | PN.HOSP_ITS ---
Reason for Visit Reason for Visit: Diagnoses Hypertensive encephalopathy (02/12/24) Headache, unspecified (02/12/24) Subjective Subjective Patient seen patient level of sensorium markedly improved. Blood pressure however is still not well-controlled adjusted her lisinopril dose and added amlodipine to her treatment regimen Objective Data Objective Data Vital Signs: Vital Signs Temp Pulse Resp BP Pulse Ox O2 Del Method O2 Flow Rate 97.8 F 62 16 198/81 H 97 Room Air 2 02/13/24 05:41 02/13/24 05:52 02/13/24 05:41 02/13/24 05:52 02/13/24 05:41 02/13/24 05:41 02/12/24 15:04 Oxygen Flow Rate (L/min) 2 Oxygen Delivery Method Room Air Weight: 93.7 kg Body Mass Index (BMI) 33.3 Intake & Output: Intake and Output for Last 24 Hours 02/11/24 02/12/24 02/13/24 23:59 23:59 23:59 Intake Total 1520 / 1570 50 / 50 Output Total 600 / 600 Balance 920 / 970 50 / 50 Lab / Micro Data 02/13/24 08:47 02/13/24 08:37 Micro: Microbiology 02/11/24 21:31 Mucosa - Nose SARS-CoV-2, Influenza & RSV (PCR) - Final Radiography Diagnostic Testing: Radiology Impression Brain MRI 02/12/24 01:17 IMPRESSION: 1. No MRI evidence of acute or subacute ischemic infarct or remote cortical-based ischemic infarct. 2. Chronic white matter ischemic changes in both cerebral hemispheres, confluent in the forceps major. 3. No abnormal enhancing lesions intra-axially and extra-axially. Electronically Signed: Yassine Beltre MD at 12:00 EDT , Brain MRI 02/12/24 01:17 IMPRESSION: Normal unenhanced MRV of the brain. Electronically Signed: Yassine Beltre MD at 11:46 EDT , Echocardiogram 02/12/24 02:24 Interpretation Summary The estimated ejection fraction is 60 %. Diastolic function is indeterminate. There is mild biatrial dilatation. Ordering Physician: Trinity Wright Referring Physician: Dylan Renteria Performed By: Clinton Scherer RCS Physical Exam Narrative GENERAL: Somewhat lethargic (patient did receive Ativan for MRI) HEENT: Atraumatic; normocephalic EYES; Anicteric, Normal Conjunctiva NECK; supple, normal thyroid, RESPIRATORY: Diminished to auscultation CARDIOVASCULAR: Regular S1 S2, GI: soft, normoactive bowel sounds, : No Renal angle tenderness; EXTREMITIES: No edema, no clubbing, MUSCULOSKELETAL: no muscle wasting NEURO: Awake; no lateralizing signs. SKIN: No Rash PSYCH; Flat affect Assessment & Plan Assessment/Plan (1) Headache: (2) Hypertensive encephalopathy: PLAN: Plan Patient is an 83-year-old lady admitted with intractable headache associated with erratic behavior. Patient admitted to a monitored bed for subsequent management 1. Intractable headache ? Etiology undetermined at this point. Patient admitted to monitored bed treated symptomatically [facility] blood pressure control as well as subsequent imaging studies with MRI 2. Acute hypertensive encephalopathy with concern for PRES ? Admitted to monitored bed patient is on metoprolol resumed added lisinopril with hydralazine as needed for systolic blood pressure greater than 160. Patient to undergo subsequent evaluation with MRI ? 02/13/2024; MRI obtained the day prior did show No MRI evidence of acute or subacute ischemic infarct or remote cortical-based ischemic infarct. Chronic white matter ischemic changes in both cerebral hemispheres, confluent in the forceps major. No abnormal enhancing lesions intra-axially and extra-axially. Patient seen patient level of sensorium markedly improved. Blood pressure however is still not well-controlled adjusted her lisinopril dose and added amlodipine to her treatment regimen 3. Hypothyroidism ? Patient is on levothyroxine home dose continued 4. Dyslipidemia ?Patient is on statin therapy, continued at home dose 5. GERD ? On PPI History of atrial dysrhythmia/ventricular tachycardia -Patient is on beta-blockers continued patient is followed by cardiology as outpatient plan is for patient to resume care following discharge 6. Class I obesity with BMI of 33 7. DVT prophylaxis ? On enoxaparin Time spent in the patient's overall evaluation,decision-making process, review of diagnostic data, adjustment of management, discussion with other providers, nursing nursing and ancillary staff involved in patient's care documentation, 40 -minutes Charges/Coding Visit Charges Inpatient E&M: 66958 Subs Hosp L2
[2024-02-13] MEDS: Lactated Ringers 1,000 ML 75 ML IV (08:43)
[2024-02-13] MEDS: Metoprolol(XL)Succ 50 MG Tablet PO (08:43)
[2024-02-13] MEDS: Aspirin E.C. 81 MG Tablet PO (08:43)
[2024-02-13] MEDS: Enoxaparin 40 MG/0.4 ML Syringe SC (08:44)
[2024-02-13] MEDS: Pantoprazole Sodium 40 MG Tablet PO ×2 (08:44→16:57)
[2024-02-13] MEDS: Lisinopril 10 MG Tablet PO ×2 (08:44→21:51)
[2024-02-13] MEDS: amLODIPine 10 MG Tablet PO (08:46)
[2024-02-13 09:11] LABS: Hematocrit 40.3 % (37-47); Hemoglobin 12.9 g/dL (12.0-15.0); Mean Corpuscular Hgb 27.7 pg (27.0-32.0); Mean Corpuscular Volume 86.7 fL (81-99); Mean Platelet Vol. 10.9 fl (6.2-12.0); Platelet Count 190 K/mm3 (150-450); RBC Distribution Width CV 14.3 % (11.6-14.6); RBC Distribution Width SD 45.3 fl (35.1-43.9); Red Blood Count 4.65 M/mm3 (4.2-5.4); White Blood Count 9.5 K/mm3 (4.4-11.0)
[2024-02-13 09:25] LABS: ALB/GLOB Ratio 1.1 RATIO (0.9-2.4); AST(SGOT) 13 U/L (15-37); Alanine Aminotransfer ALT/SGPT 21 U/L (13-56); Albumin, Serum 3.1 g/dL (3.2-5.0); Alkaline Phosphatase 83 U/L (45-117); Anion Gap 9 (5-15); BUN 13 mg/dL (7-18); BUN/Creat Ratio 18.3 RATIO (10-20); Calcium,Total 8.7 mg/dL (8.5-10.1); Chloride 105 mmol/L (98-107); Creatinine, Serum 0.71 mg/dL (0.55-1.02); EST Glomerular Filtration Rate 84 mL/min (>60); Est Glom Filt Rate - Afr Amer 102 mL/min (>60); Estimated Creatinine Clearance 63.61 ml/min; Globulin 2.9 g/dL (2.2-4.2); Glucose 103 mg/dL (74-106); Magnesium 2.1 mg/dL (1.6-2.6); Phosphorus 3.3 mg/dL (2.5-4.9); Potassium 3.6 mmol/L (3.5-5.1); Sodium Level 138 mmol/L (136-145)
--- NOTE | 2024-02-13 12:38 | CHAPLAIN ---
Type of Pastoral Visit _x__ Initial Visit ___ Follow-up Visit ___ On-call Visit ___ General Patient Visit ___ Spiritual Assessment ___ Family Conference ___ Bereavement ___ Rapid Response ___ Code Blue ___ Other (describe below) Pastoral Care Referral From ___ Patient _x__ Family ___ Nurse ___ Physician ___ Edge Trimming Machine Operator ___ Insurance Salesperson ___ Other (describe below) Sacrament/Intervention ___ Active listening ___ Anointing ___ Confucianism ___ Bereavement ___ Communion ___ Soheila exploration ___ ___ Life review _x__ Prayer ___ Reconciliation ___ Sacrament of Sick _x_ Supportive presence ___ Wedding ___ Other (describe below) Pastoral Comments patient is sitting in the chair with a daughter and a sister also sitting beside her; pt has blank stare on her face; pt is asked if she can identify the people in the room and she says yes but does not state who and their names; pt only answers yes or no to questions and hesitates at each answer; family members state that they are with her to help and that a prayer would be most beneficial; pt agrees with a 'yes' when asked if prayer would be helpful; inquired of family is any other needs and offer of support ongoing
--- NOTE | 2024-02-13 12:40 | CASEMGMT ---
Addendum entered by Gertrude Maradiaga 02/13/24 14:20: Spoke with pt dtr Lisseth who states that they were able to speak with the doctor and that pt will stay at least until Friday and may have repeat testing. Pt dtr aware that the RN KAREN will continue to follow therapy with patient and to formulate a better plan on Friday. She verbalizes understanding and is agreeable to this. Updated SW. Original Note: Spoke with therapist regarding pt session today. RN CM into pt room, pt sitting up in chair with family in room. Discussed pt therapy session with pt and family. Pt family upset and state they want to speak with doctor. They have notified the nurse who has messaged the doctor. They are not interested in discussing dc planning at this time stating if pt is to be dc'd, they will be going to another hospital. ANTONIO JONES to meet back with family after discussion with doctor.
[2024-02-13 15:11] LABS: Mucous, Urine 0 SEEN /hpf (<or=2+)
[2024-02-13 15:17] LABS: Color, Urine Yellow (Yellow); Glucose, Dipstick Normal (Normal); Ketone-Dipstick 5 mg/dl (Negative); Leukocyte Esterase-Dipstick 500 /ul (Negative); Nitrite-Dipstick Negative (Negative); Occult Blood-Urine 50 /ul (Negative); Protein-Dipstick Negative (Negative); Urine Bilirubin Dipstick Negative (Negative); Urine Clarity Clear (Clear); Urine Urobilinogen Normal (Normal)
[2024-02-13 15:25] LABS: Bacteria 1+ /hpf (None Seen); Squamous Epithelial Cells - UA 0-5 SEEN /hpf (5-10); White Blood Cells 25-50 SEEN /hpf (0-5)
[2024-02-13 15:26] LABS: Red Blood Cells-Urine 0-5 SEEN /hpf (0-5)
[2024-02-13] MEDS: Ceftriaxone 1 GM/50 ML BAG IV (16:56)
[2024-02-13] MEDS: Ensure Plus High Protein 120 ML LIQUID PO (21:50)
[2024-02-13] MEDS: Atorvastatin Calcium 40 MG Tablet PO (21:51)
[2024-02-13] MEDS: Amitriptyline 25 MG Tablet PO (21:51)
[2024-02-14] VITALS (11 sets, daily range): BP systolic 99–173; BP diastolic 60–79; PULSE 66–91; RESP 14–17; TEMP 36.4–36.9; O2SAT 92–96
[2024-02-14] MEDS: Lactated Ringers 1,000 ML 75 ML IV (00:50)
[2024-02-14] MEDS: Acetaminophen 500 MG Tablet 1000 MG PO ×3 (05:43→21:51)
[2024-02-14] MEDS: Levothyroxine 100 MCG Tablet PO (05:43)
[2024-02-14 07:03] LABS: Absolute Lymphocyte Count 1.88 X10^3/uL (0.83-4.51); Absolute Neutrophil Count 2.9 X10^3/uL (2.0-7.7); Basophil# 0.09 X10^3/uL; Basophil% 1.5 % (0-1); Eosinophil# 0.34 X10^3/uL; Eosinophils% 5.6 % (0-5); Hematocrit 40.1 % (37-47); Lymphocyte # 1.88 X10^3/ul (0.83-4.51); Lymphocyte % 31.1 % (19-41); Mean Corp Hgb Conc 32.4 g/dL (32-36); Mean Corpuscular Hgb 27.9 pg (27.0-32.0); Mean Corpuscular Volume 86.1 fL (81-99); Mean Platelet Vol. 11.5 fl (6.2-12.0); Monocyte# 0.84 X10^3/uL; Monocyte% 13.9 % (0-10); NRBC Flagged by Analyzer 0 % (0-5); Neutrophil # 2.87 X10^3/uL (2.7-7.7); Neutrophil % 47.6 % (47-70); Platelet Count 200 K/mm3 (150-450); RBC Distribution Width CV 14.1 % (11.6-14.6); RBC Distribution Width SD 44.6 fl (35.1-43.9); Red Blood Count 4.66 M/mm3 (4.2-5.4)
--- NOTE | 2024-02-14 07:43 | PCM.PN.HOSP ---
Reason for Visit Reason for Visit: Diagnoses Hypertensive encephalopathy (02/12/24) Headache, unspecified (02/12/24) Subjective Subjective Patient level of sensorium improving. Urinalysis obtained the day prior came back consistent with acute cystitis repeat cultures sent patient started on ceftriaxone Objective Data Objective Data Vital Signs: Vital Signs Temp Pulse Resp BP Pulse Ox O2 Del Method O2 Flow Rate 98.2 F 81 16 150/78 H 94 Room Air 2 02/14/24 04:50 02/14/24 04:50 02/14/24 04:50 02/14/24 04:50 02/14/24 04:50 02/14/24 04:50 02/12/24 15:04 Oxygen Flow Rate (L/min) 2 Oxygen Delivery Method Room Air Weight: 93.7 kg Body Mass Index (BMI) 33.3 Intake & Output: Intake and Output for Last 24 Hours 02/12/24 02/13/24 02/14/24 23:59 23:59 23:59 Intake Total 1520 / 1570 2280.00 / 2400.00 240 / 240 Output Total 600 / 600 350 / 350 Balance 920 / 970 2280.00 / 2050.00 -110 / -110 Lab / Micro Data 02/14/24 06:37 02/14/24 06:37 Labs: Laboratory Results - last 24 hr 02/13/24 08:37: Sodium 138, Potassium 3.6, Chloride 105, Carbon Dioxide 24.0, Anion Gap 9, BUN 13, Creatinine 0.71, Estim Creat Clear Calc 63.61, Est GFR (MDRD) Af Amer 102, Est GFR (MDRD) Non-Af 84, BUN/Creatinine Ratio 18.3, Glucose 103, Calcium 8.7, Phosphorus 3.3, Magnesium 2.1, Total Bilirubin 1.10 H, AST 13 L, ALT 21, Alkaline Phosphatase 83, Total Protein 6.0 L, Albumin 3.1 L, Globulin 2.9, Albumin/Globulin Ratio 1.1 02/13/24 08:47: WBC 9.5, RBC 4.65, Hgb 12.9, Hct 40.3, MCV 86.7, MCH 27.7, MCHC 32.0, RDW Std Deviation 45.3 H, RDW Coeff of Naomie 14.3, Plt Count 190, MPV 10.9 02/13/24 14:57: Urine Color Yellow, Urine Clarity Clear, Urine pH 6.0, Ur Specific [place] 1.010, Urine Protein Negative, Urine Glucose (UA) Normal, Urine Ketones 5 H, Urine Occult Blood 50 H, Urine Nitrite Negative, Urine Bilirubin Negative, Urine Urobilinogen Normal, Ur Leukocyte Esterase 500 H, Urine RBC 0-5 SEEN, Urine WBC 25-50 SEEN, Ur Squamous Epith Cells 0-5 SEEN, Urine Bacteria 1+, Urine Mucus 0 SEEN 02/14/24 06:37: WBC 6.0, RBC 4.66, Hgb 13.0, Hct 40.1, MCV 86.1, MCH 27.9, MCHC 32.4, RDW Std Deviation 44.6 H, RDW Coeff of Naomie 14.1, Plt Count 200, MPV 11.5, Immature Gran % (Auto) 0.300, Neut % (Auto) 47.6, Lymph % (Auto) 31.1, [place] % (Auto) 13.9 H, Eos % (Auto) 5.6 H, Baso % (Auto) 1.5 H, Absolute Neuts (auto) 2.9, Absolute Lymphs (auto) 1.88, Nucleated RBC % 0 Micro: Microbiology 02/11/24 18:00 Urine, Clean Catch Urine Culture - Final Mixed Gram Pos & Gram Neg Org 02/11/24 21:31 Mucosa - Nose SARS-CoV-2, Influenza & RSV (PCR) - Final Physical Exam Narrative GENERAL: Somewhat lethargic (patient did receive Ativan for MRI) HEENT: Atraumatic; normocephalic EYES; Anicteric, Normal Conjunctiva NECK; supple, normal thyroid, RESPIRATORY: Diminished to auscultation CARDIOVASCULAR: Regular S1 S2, GI: soft, normoactive bowel sounds, : No Renal angle tenderness; EXTREMITIES: No edema, no clubbing, MUSCULOSKELETAL: no muscle wasting NEURO: Awake; no lateralizing signs. SKIN: No Rash PSYCH; Flat affect Assessment & Plan Assessment/Plan (1) Headache: (2) Hypertensive encephalopathy: PLAN: Plan Patient is an 83-year-old lady admitted with intractable headache associated with erratic behavior. Patient admitted to a monitored bed for subsequent management 1. Intractable headache ? Etiology undetermined at this point. Patient admitted to monitored bed treated symptomatically [facility] blood pressure control as well as subsequent imaging studies with MRI 2. Acute hypertensive encephalopathy with concern for PRES ? Admitted to monitored bed patient is on metoprolol resumed added lisinopril with hydralazine as needed for systolic blood pressure greater than 160. Patient to undergo subsequent evaluation with MRI ? 02/13/2024; MRI obtained the day prior did show No MRI evidence of acute or subacute ischemic infarct or remote cortical-based ischemic infarct. Chronic white matter ischemic changes in both cerebral hemispheres, confluent in the forceps major. No abnormal enhancing lesions intra-axially and extra-axially. Patient seen patient level of sensorium markedly improved. Blood pressure however is still not well-controlled adjusted her lisinopril dose and added amlodipine to her treatment regimen -02/10/2024In view of her persistent encephalopathy repeat urinalysis was ordered the day prior came back consistent with cystitis started on ceftriaxone 3. Acute cystitis ? Patient started on ceftriaxone repeat cultures sent 4. Hypokalemia -Corrected per protocol 5. Hypothyroidism ? Patient is on levothyroxine home dose continued 6. Dyslipidemia ?Patient is on statin therapy, continued at home dose 7. GERD ? On PPI 8. History of atrial dysrhythmia/ventricular tachycardia -Patient is on beta-blockers continued patient is followed by cardiology as outpatient plan is for patient to resume care following discharge 9. Class I obesity with BMI of 33 10. DVT prophylaxis ? On enoxaparin Time spent in the patient's overall evaluation,decision-making process, review of diagnostic data, adjustment of management, discussion with other providers, nursing nursing and ancillary staff involved in patient's care documentation, 38 -minutes Charges/Coding Visit Charges Inpatient E&M: 90131 Subs Hosp L2
[2024-02-14 08:24] LABS: Anion Gap 7 (5-15); BUN 11 mg/dL (7-18); BUN/Creat Ratio 16.4 RATIO (10-20); Calcium,Total 9.2 mg/dL (8.5-10.1); Chloride 112 mmol/L (98-107); Creatinine, Serum 0.67 mg/dL (0.55-1.02); EST Glomerular Filtration Rate 90 mL/min (>60); Est Glom Filt Rate - Afr Amer 109 mL/min (>60); Estimated Creatinine Clearance 63.61 ml/min; Glucose 101 mg/dL (74-106); Potassium 3.3 mmol/L (3.5-5.1); Sodium Level 144 mmol/L (136-145)
[2024-02-14] MEDS: Pantoprazole Sodium 40 MG Tablet PO ×2 (09:53→17:28)
[2024-02-14] MEDS: Enoxaparin 40 MG/0.4 ML Syringe SC (09:54)
[2024-02-14] MEDS: Ceftriaxone 1 GM/50 ML BAG IV (09:54)
[2024-02-14] MEDS: Metoprolol(XL)Succ 50 MG Tablet PO (09:54)
[2024-02-14] MEDS: amLODIPine 10 MG Tablet PO (09:54)
[2024-02-14] MEDS: Lisinopril 10 MG Tablet PO ×2 (09:54→21:51)
[2024-02-14] MEDS: Aspirin E.C. 81 MG Tablet PO (09:54)
[2024-02-14] MEDS: Ensure Plus High Protein 120 ML LIQUID PO ×4 (09:55→21:51)
[2024-02-14] MEDS: Potassium Chloride Oral Tablet 20 MEQ 40 MEQ PO (11:50)
--- NOTE | 2024-02-14 13:15 | CASEMGMT ---
Social Work SW spoke w/pt about POA for healthcare, pt confirms her daughter Lisseth is healthcare POA. SW asked her to have her daughter bring in the POA documents as able. ARMANDO Glass
[2024-02-14] MEDS: 0.9% Saline Lock 10 ML Syringe IV (17:33)
[2024-02-14] MEDS: Potassium Chloride Oral Tablet 20 MEQ PO (17:33)
[2024-02-14] MEDS: hydrALAZINE 20 MG/ML Vial 10 MG IV (17:33)
[2024-02-14] MEDS: Atorvastatin Calcium 40 MG Tablet PO (21:52)
[2024-02-14] MEDS: Amitriptyline 25 MG Tablet PO (21:52)
[2024-02-15] VITALS (12 sets, daily range): BP systolic 145–179; BP diastolic 65–80; PULSE 74–91; RESP 14–17; TEMP 36.4–36.8; O2SAT 94–97
[2024-02-15 04:44] LABS: Absolute Lymphocyte Count 2.42 X10^3/uL (0.83-4.51); Absolute Neutrophil Count 4.1 X10^3/uL (2.0-7.7); Basophil# 0.11 X10^3/uL; Basophil% 1.4 % (0-1); Hematocrit 39.8 % (37-47); Hemoglobin 12.7 g/dL (12.0-15.0); Lymphocyte # 2.42 X10^3/ul (0.83-4.51); Lymphocyte % 30.1 % (19-41); Mean Corp Hgb Conc 31.9 g/dL (32-36); Mean Corpuscular Hgb 27.7 pg (27.0-32.0); Mean Corpuscular Volume 86.9 fL (81-99); Mean Platelet Vol. 11.4 fl (6.2-12.0); Monocyte# 1.01 X10^3/uL; Monocyte% 12.5 % (0-10); NRBC Flagged by Analyzer 0 % (0-5); Neutrophil # 4.08 X10^3/uL (2.7-7.7); Neutrophil % 50.6 % (47-70); Platelet Count 215 K/mm3 (150-450); RBC Distribution Width CV 14.3 % (11.6-14.6); RBC Distribution Width SD 45.4 fl (35.1-43.9); Red Blood Count 4.58 M/mm3 (4.2-5.4); White Blood Count 8.1 K/mm3 (4.4-11.0)
[2024-02-15 05:03] LABS: Anion Gap 6 (5-15); BUN 16 mg/dL (7-18); BUN/Creat Ratio 22.5 RATIO (10-20); Calcium,Total 9.2 mg/dL (8.5-10.1); Chloride 112 mmol/L (98-107); Creatinine, Serum 0.71 mg/dL (0.55-1.02); EST Glomerular Filtration Rate 84 mL/min (>60); Est Glom Filt Rate - Afr Amer 102 mL/min (>60); Estimated Creatinine Clearance 63.61 ml/min; Glucose 108 mg/dL (74-106); Potassium 3.7 mmol/L (3.5-5.1); Sodium Level 143 mmol/L (136-145)
[2024-02-15] MEDS: Acetaminophen 500 MG Tablet 1000 MG PO ×3 (05:50→21:44)
[2024-02-15] MEDS: Levothyroxine 100 MCG Tablet PO (05:51)
--- NOTE | 2024-02-15 07:35 | PN.HOSP_ITS ---
Reason for Visit Reason for Visit: Diagnoses Hypertensive encephalopathy (02/12/24) Headache, unspecified (02/12/24) Subjective Subjective Repeat urine cultures came back positive for E. coli. Patient has been experience episodes of agitation and apparently ripped out her IV. Had an extensive discussion with the patient's daughter patient has been experiencing some cognition issues. Patient will be started on Seroquel at night. Her blood pressure control is still not optimal. Discontinued lisinopril per patient request she apparently did experience previous cough. Started patient on losartan as well as scheduled hydralazine Objective Data Objective Data Vital Signs: Vital Signs Temp Pulse Resp BP Pulse Ox O2 Del Method O2 Flow Rate 97.6 F L 84 17 157/80 H 94 Room Air 2 02/15/24 04:22 02/15/24 04:22 02/15/24 04:22 02/15/24 04:22 02/15/24 04:22 02/15/24 04:26 02/12/24 15:04 Oxygen Flow Rate (L/min) 2 Oxygen Delivery Method Room Air Weight: 93.7 kg Body Mass Index (BMI) 33.3 Intake & Output: Intake and Output for Last 24 Hours 02/13/24 02/14/24 02/15/24 23:59 23:59 23:59 Intake Total 2280.00 / 2400.00 1972.5 / 2212.5 360 / 360 Output Total 350 / 350 Balance 2280.00 / 2050.00 1622.5 / 1862.5 360 / 360 Lab / Micro Data 02/15/24 03:57 02/15/24 03:57 Labs: Laboratory Results - last 24 hr 02/14/24 06:37: Sodium 144, Potassium 3.3 L, Chloride 112 H, Carbon Dioxide 25.0, Anion Gap 7, BUN 11, Creatinine 0.67, Estim Creat Clear Calc 63.61, Est GFR (MDRD) Af Amer 109, Est GFR (MDRD) Non-Af 90, BUN/Creatinine Ratio 16.4, Glucose 101, Calcium 9.2 02/15/24 03:57: WBC 8.1, RBC 4.58, Hgb 12.7, Hct 39.8, MCV 86.9, MCH 27.7, MCHC 31.9 L, RDW Std Deviation 45.4 H, RDW Coeff of Naomie 14.3, Plt Count 215, MPV 11.4, Immature Gran % (Auto) 0.400, Neut % (Auto) 50.6, Lymph % (Auto) 30.1, M [place] % (Auto) 12.5 H, Eos % (Auto) 5.0, Baso % (Auto) 1.4 H, Absolute Neuts (auto) 4.1, Absolute Lymphs (auto) 2.42, Nucleated RBC % 0, Sodium 143, Potassium 3.7, Chloride 112 H, Carbon Dioxide 25.0, Anion Gap 6, BUN 16, Creatinine 0.71, Estim Creat Clear Calc 63.61, Est GFR (MDRD) Af Amer 102, Est GFR (MDRD) Non-Af 84, BUN/Creatinine Ratio 22.5 H, Glucose 108 H, Calcium 9.2 Micro: Microbiology 02/13/24 14:57 Urine, Clean Catch Urine Culture - Final Presumptive E. coli 02/11/24 18:00 Urine, Clean Catch Urine Culture - Final Mixed Gram Pos & Gram Neg Org 02/11/24 21:31 Mucosa - Nose SARS-CoV-2, Influenza & RSV (PCR) - Final Physical Exam Narrative GENERAL: Somewhat lethargic (patient did receive Ativan for MRI) HEENT: Atraumatic; normocephalic EYES; Anicteric, Normal Conjunctiva NECK; supple, normal thyroid, RESPIRATORY: Diminished to auscultation CARDIOVASCULAR: Regular S1 S2, GI: soft, normoactive bowel sounds, : No Renal angle tenderness; EXTREMITIES: No edema, no clubbing, MUSCULOSKELETAL: no muscle wasting NEURO: Awake; no lateralizing signs. SKIN: No Rash PSYCH; Flat affect Assessment & Plan Assessment/Plan (1) Headache: (2) Hypertensive encephalopathy: PLAN: Plan Patient is an 83-year-old lady admitted with intractable headache associated with erratic behavior. Patient admitted to a monitored bed for subsequent management 1. Intractable headache ? Etiology undetermined at this point. Patient admitted to monitored bed treated symptomatically consult was placed to [facility] recommended aggressive blood pressure control as well as subsequent imaging studies with MRI 2. Acute hypertensive encephalopathy with concern for PRES ? Admitted to monitored bed patient is on metoprolol resumed added lisinopril with hydralazine as needed for systolic blood pressure greater than 160. Patient to undergo subsequent evaluation with MRI ? 02/13/2024; MRI obtained the day prior did show No MRI evidence of acute or subacute ischemic infarct or remote cortical-based ischemic infarct. Chronic white matter ischemic changes in both cerebral hemispheres, confluent in the forceps major. No abnormal enhancing lesions intra-axially and extra-axially. Patient seen patient level of sensorium markedly improved. Blood pressure however is still not well-controlled adjusted her lisinopril dose and added amlodipine to her treatment regimen -02/14/2024In view of her persistent encephalopathy repeat urinalysis was ordered the day prior came back consistent with cystitis started on ceftriaxone ? 02/15/2024. Her blood pressure control is still not optimal. Discontinued lisinopril per patient request she apparently did experience previous cough. Started patient on losartan as well as scheduled hydralazine 3. Acute cystitis ? Patient started on ceftriaxone repeat cultures sent -02/15/2024;Repeat urine cultures came back positive for E. coli. Patient ripped out her IV and subsequently started on Keflex ? 4. Suspected dementia ? With behavioral agitation. Had an extensive discussion with the patient's daughter patient has been experiencing some cognition issues. Patient will be started on Seroquel at night 4. Hypokalemia -Corrected per protocol 5. Hypothyroidism ? Patient is on levothyroxine home dose continued 6. Dyslipidemia ?Patient is on statin therapy, continued at home dose 7. GERD ? On PPI 8. History of atrial dysrhythmia/ventricular tachycardia -Patient is on beta-blockers continued patient is followed by cardiology as outpatient plan is for patient to resume care following discharge 9. Class I obesity with BMI of 33 10. DVT prophylaxis ? On enoxaparin Time spent in the patient's overall evaluation,decision-making process, review of diagnostic data, adjustment of management, discussion with other providers, nursing nursing and ancillary staff involved in patient's care documentation, 38 -minutes Charges/Coding Visit Charges Inpatient E&M: 85901 Subs Hosp L2
[2024-02-15] MEDS: Pantoprazole Sodium 40 MG Tablet PO ×2 (08:22→17:07)
[2024-02-15] MEDS: Metoprolol(XL)Succ 50 MG Tablet PO (08:22)
[2024-02-15] MEDS: Aspirin E.C. 81 MG Tablet PO (08:22)
[2024-02-15] MEDS: Enoxaparin 40 MG/0.4 ML Syringe SC (08:24)
[2024-02-15] MEDS: amLODIPine 10 MG Tablet PO (08:25)
[2024-02-15] MEDS: Potassium Chloride Oral Tablet 20 MEQ PO ×2 (08:25→17:07)
[2024-02-15] MEDS: Ensure Plus High Protein 120 ML LIQUID PO ×3 (08:25→17:07)
[2024-02-15] MEDS: hydrALAZINE 25 MG Tablet PO ×2 (09:14→21:42)
[2024-02-15] MEDS: Losartan Potassium 50 MG Tablet PO ×2 (09:14→21:45)
[2024-02-15] MEDS: Cephalexin 500 MG Capsule PO ×3 (11:26→21:43)
[2024-02-15] MEDS: Amitriptyline 25 MG Tablet PO (21:42)
[2024-02-15] MEDS: QUEtiapine 25 MG Tablet PO (21:44)
[2024-02-15] MEDS: Atorvastatin Calcium 40 MG Tablet PO (21:46)
[2024-02-16] VITALS (7 sets, daily range): BP systolic 141–174; BP diastolic 65–85; PULSE 76–92; RESP 16–18; TEMP 36.5–36.6; O2SAT 95–97
[2024-02-16] MEDS: Acetaminophen 500 MG Tablet 1000 MG PO ×2 (05:57→12:35)
[2024-02-16] MEDS: Levothyroxine 100 MCG Tablet PO (05:57)
[2024-02-16] MEDS: Cephalexin 500 MG Capsule PO ×2 (05:57→13:56)
[2024-02-16 07:10] LABS: Absolute Neutrophil Count 4.6 X10^3/uL (2.0-7.7); Basophil% 1.2 % (0-1); Eosinophil# 0.47 X10^3/uL; Eosinophils% 5.6 % (0-5); Hematocrit 39.7 % (37-47); Hemoglobin 12.6 g/dL (12.0-15.0); Lymphocyte % 26.1 % (19-41); Mean Corp Hgb Conc 31.7 g/dL (32-36); Mean Corpuscular Hgb 27.9 pg (27.0-32.0); Mean Platelet Vol. 11.3 fl (6.2-12.0); Monocyte# 1.03 X10^3/uL; Monocyte% 12.2 % (0-10); NRBC Flagged by Analyzer 0 % (0-5); Neutrophil # 4.62 X10^3/uL (2.7-7.7); Neutrophil % 54.8 % (47-70); Platelet Count 215 K/mm3 (150-450); RBC Distribution Width CV 14.4 % (11.6-14.6); RBC Distribution Width SD 46.3 fl (35.1-43.9); Red Blood Count 4.51 M/mm3 (4.2-5.4); White Blood Count 8.4 K/mm3 (4.4-11.0)
[2024-02-16 07:51] LABS: Anion Gap 5 (5-15); BUN 17 mg/dL (7-18); BUN/Creat Ratio 22.3 RATIO (10-20); Calcium,Total 8.7 mg/dL (8.5-10.1); Chloride 111 mmol/L (98-107); Creatinine, Serum 0.76 mg/dL (0.55-1.02); EST Glomerular Filtration Rate 77 mL/min (>60); Est Glom Filt Rate - Afr Amer 93 mL/min (>60); Estimated Creatinine Clearance 63.61 ml/min; Glucose 103 mg/dL (74-106); Potassium 3.7 mmol/L (3.5-5.1); Sodium Level 142 mmol/L (136-145)
[2024-02-16] MEDS: Pantoprazole Sodium 40 MG Tablet PO (08:25)
[2024-02-16] MEDS: hydrALAZINE 25 MG Tablet PO (08:25)
[2024-02-16] MEDS: Losartan Potassium 50 MG Tablet PO (08:25)
[2024-02-16] MEDS: Aspirin E.C. 81 MG Tablet PO (08:26)
[2024-02-16] MEDS: Enoxaparin 40 MG/0.4 ML Syringe SC (08:26)
[2024-02-16] MEDS: Potassium Chloride Oral Tablet 20 MEQ PO (08:26)
[2024-02-16] MEDS: amLODIPine 10 MG Tablet PO (08:27)
[2024-02-16] MEDS: Metoprolol(XL)Succ 50 MG Tablet PO (08:27)
[2024-02-16] MEDS: Ensure Plus High Protein 120 ML LIQUID PO ×2 (08:33→13:56)
--- NOTE | 2024-02-16 13:58 | DCINST_ITS ---
Discharge Instructions Diet Discharge Diet: No restrictions Activity Discharge Activity: May Not Drive (given dementia and current confusion, needs f/u with PCP) Dressing / Incision Call your doctor if you observe: Fever of 101 or Higher, Shortness of breath, Dizziness, Fainting spells, Swelling in the ankles, Chest pain and Increased palpitations (irregular heartbeat) Follow Up Care Test Results: Test results from this visit will be discussed in further detail at your follow- up appointment, if applicable. Discharge Plan Admission Admit Date/Time: 02/12/24 00:36 Attending Provider: Edison Turner Primary Care Provider: Dylan Renteria Consulting Providers: Guicho Landrum; Lindsay Cope; Kathy An; Shefali Roblero; Brittni Oliver; Ander Diaz; Naye Henriquez; Elio Crow; Paul Nesbitt; Miguelito Mustafa; Chelsey Loredo; Gordon Espinoza; Alexandra Calzada; Maude Le; Baljinder Beebe; Al Bolaños; Rafael Rodriguez; Ismael Ansari; Elle Wright; Avelina Vasquez; Trinity Wright; Jaison Giraldo Instructions Additional Instructions / Restrictions: Follow-up with your primary care doctor in 3 to 5 days to monitor your kidney function given the initiation of losartan to make sure there is improvement in your mental status with the antibiotics. Discharge Orders/Prescriptions Prescriptions: New losartan 50 mg Tablet 50 mg PO BID 30 Days Qty: 60 0RF amlodipine 10 mg Tablet 10 mg PO DAILY 30 Days Qty: 30 0RF cephalexin 500 mg Capsule 500 mg PO Q8 4 Days Qty: 12 0RF Continued rosuvastatin 20 mg tablet 20 mg PO QPM coenzyme Q10 100 mg capsule 100 mg PO QPM aspirin 81 mg tablet,delayed release (DR/EC) 81 mg PO DAILY pantoprazole 40 mg tablet,delayed release (DR/EC) 40 mg PO Q12H levothyroxine 100 mcg tablet 100 mcg PO DAILY hydrocodone-acetaminophen 5-325 mg tablet 1 tab PO BID PRN (Reason: pain) metoprolol succinate [Toprol XL] 50 mg tablet extended release 24 hr 50 mg PO DAILY Qty: 60 3RF ascorbic acid (vitamin C) [C-500] 500 mg tablet 500 mg PO DAILY Referrals / Follow Up: Dylan Renteria MD [Primary Care Provider] - Within 1 Week Disposition Disposition (needs filled in before D/C Order can be placed): Home, Self Care
--- NOTE | 2024-02-16 14:14 | CASEMGMT ---
Order for DC placed. This RN CM to pt room at this time to discuss DC planning. Pt sitting up in bed and is A&Ox4. Pt states that she is ready for DC today. Pt states that either her Daughter or friend will pick her up from the hospital. Pt states that she feels returning home and does not need any HHC or OP Tx set up. This RN CM discussed how the pt did with therapy. Pt continued to deny the need for additional help or therapy once at home and denies further needs. Pt states that she may also go stay at her daughters house to have a little extra support. Pt is aware that if she changes her mind about HHC/ OP Tx that she can f/u with her PCP. Pt states understanding and denies further questions or concerns from this RN CM at this time.
--- NOTE | 2024-02-17 17:05 | DS.PCM_ITS ---
Providers Date of Admission: 02/12/24 Date of Discharge: 02/16/24 Primary Care Physician: Dr. Dylan Renteria MD Consultations 02/11/24 23:12 Consult: Tele-Neurology Routine Consulting Provider: [facility] Reason for Consult: Headache EMERGENT Consult: Yes MD Notified: Yes Date Notified: 02/11/24 Time Notified: 23:13 Method of Notification: ED Physician Initiated Nursing Unit Staff Notify [facility] of Tele-Neurology Consult: Yes 02/12/24 01:17 neuro [Consult: Tele-Neurology] Routine Consulting Provider: [facility] Reason for Consult: intractable CARUSO/ HTN encephalopathy EMERGENT Consult: No MD Notified: Yes Date Notified: 02/12/24 Time Notified: 02:35 Method of Notification: Answering Service Nursing Unit Staff Notify [facility] of Tele-Neurology Consult: Yes Reason For Visit: HTN ENCEPHALOPATHY Diagnosis Discharge Diagnosis (1) Headache: Status: Acute Code(s): R51.9 - Headache, unspecified (2) Hypertensive encephalopathy: Status: Acute Code(s): I67.4 - Hypertensive encephalopathy Medications at Discharge Home Medications aspirin 81 mg tablet,delayed release 81 mg PO DAILY 10/31/21 coenzyme Q10 100 mg capsule 100 mg PO QPM 10/31/21 rosuvastatin 20 mg tablet 20 mg PO QPM 10/31/21 pantoprazole 40 mg tablet,delayed release 40 mg PO Q12H 01/22/24 hydrocodone-acetaminophen 5-325mg 5mg-325mg 1 tab PO BID PRN pain 01/23/24 levothyroxine 100 mcg tablet 100 mcg PO DAILY 01/23/24 metoprolol succinate 50 mg tablet,extended release 24 hr (Toprol XL) 50 mg PO DAILY #60 tabs 01/23/24 ascorbic acid (vitamin C) 500 mg tablet (C-500) 500 mg PO DAILY 02/12/24 amlodipine 10 mg tablet 10 mg PO DAILY 30 days #30 tabs 02/16/24 cephalexin 500 mg capsule 500 mg PO Q8 4 days #12 caps 02/16/24 losartan 50 mg tablet 50 mg PO BID 30 days #60 tabs 02/16/24 Hospital Course Operations None Procedures 2-D Echocardiogram Summary of Care Provided Minutes Spent on Discharge: 32 Hospital Course: Per HPI: ENRIQUE GILLETTE, is a 83 F who presented to the emergency department at [facility] on 02/11/2024 with a chief complaint of headache. The patient indicated all began rather suddenly. Pain started in the occipital area and has since been radiating to the frontal area and now she reports it encompasses her whole head. Nothing exacerbates it and nothing more relates the pain. She admitted to some nausea but denies any vomiting. She has had no paresthesias or focal weakness. She does not have a history of headaches. She has had no visual changes. Family indicated that she was confused earlier today and that the noted she was driving erratically and took her home. called the EMS and EMS evaluated her and cleared her to stay home however family was concerned and brought her to the emergency department. The patient has no signs of meningismus and denies fever or chills. Vital signs on presentation showed a temperature of 97.3, heart rate 76, respiratory rate was 19, blood pressure was 200/75, and oxygen saturation was 98% on room air. Her CBC was unremarkable, other than a mild monocytosis which appears to be chronic. Chemistry panel was unremarkable with normal renal function. Troponin was normal at 12. Coags were normal. UA was not consistent with infection. Sed rate and CRP were normal. COVID/flu/influenza was negative. EKG showed sinus rhythm with occasional PVCs and a rate of 66 with normal intervals and no ST-T wave changes concerning for acute ischemia. EKG was unchanged from previous. CT of the brain and CTA of the head and neck were both unremarkable for any acute findings as well. The patient was given multiple antihypertensive in the emergency department and treated with several different types of pain medication with no significant resolution of symptoms. The case was discussed with Dr. Rodriguez from [facility] tel[facility] and recommended treating the patient as hypertensive encephalopathy and obtain a neurology consult tomorrow. Hospital Course: 1. Intractable headache ? Etiology undetermined at this point. Patient admitted to monitored bed treated symptomatically consult was placed to [facility] tel[facility] recommended aggressive blood pressure control as well as subsequent imaging studies with MRI 2. Acute hypertensive encephalopathy with concern for PRES ? Admitted to monitored bed patient is on metoprolol resumed added lisinopril with hydralazine as needed for systolic blood pressure greater than 160. Patient to undergo subsequent evaluation with MRI ? 02/13/2024; MRI obtained the day prior did show No MRI evidence of acute or subacute ischemic infarct or remote cortical-based ischemic infarct. Chronic white matter ischemic changes in both cerebral hemispheres, confluent in the forceps major. No abnormal enhancing lesions intra-axially and extra-axially. Patient seen patient level of sensorium markedly improved. Blood pressure however is still not well-controlled adjusted her lisinopril dose and added amlodipine to her treatment regimen -02/14/2024In view of her persistent encephalopathy repeat urinalysis was ordered the day prior came back consistent with cystitis started on ceftriaxone ? 02/15/2024. Her blood pressure control is still not optimal. Discontinued lisinopril per patient request she apparently did experience previous cough. Started patient on losartan as well as scheduled hydralazine 02/16/2024: She is feeling much better and her blood pressures been controlled while here with Norvasc as well as losartan 50 mg p.o. twice daily and metoprolol 50 mg p.o. daily. I discussed with her the plan for discharge today she expressed understanding the risk methods going home and would like to go home today. She will need to follow-up with her PCP in 3 to 5 days to monitor her blood pressure and make any medication adjustments that are necessary 3. Acute cystitis ? Patient started on ceftriaxone repeat cultures sent -02/15/2024;Repeat urine cultures came back positive for E. coli. Patient ripped out her IV and subsequently started on Keflex 02/16/2024: Will continue with 4 more days of Keflex on discharge 4. Suspected dementia ? With behavioral agitation. Had an extensive discussion with the patient's daughter patient has been experiencing some cognition issues. Patient will be started on Seroquel at night 4. Hypokalemia -Corrected per protocol 5. Hypothyroidism ? Patient is on levothyroxine home dose continued 6. Dyslipidemia ?Patient is on statin therapy, continued at home dose 7. GERD ? On PPI 8. History of atrial dysrhythmia/ventricular tachycardia -Patient is on beta-blockers continued patient is followed by cardiology as outpatient plan is for patient to resume care following discharge 9. Class I obesity with BMI of 33 Physical Exam Narrative General: Alert, Oriented x3, Cooperative, No apparent distress HEENT: Atraumatic, PERRLA, EOMI, Normocephalic Oral: Moist Mucosa Neck: Supple, No JVD Lungs: Diminished, Normal air movement, No rhonchi, No wheeze, No rales Cardiovascular: Regular rate, Regular Rhythm, Normal S1, Normal S2, No murmurs Abdomen: Soft, Non Tender, Non-Distended, No Hepato-splenomegaly Extremities: No edema, Capillary Refill Less than 3 Seconds Skin: No rashes, No breakdown Musculoskeletal: No Tenderness to Palpation of Joints or Extremities Neurological: No focal neurological deficits, Motor Exam 5/5 strength throughout, Sensory exam intact to light touch and pain Psych/Mental Status: Normal Affect, Appropriate Weight / BMI Weight Weight: 206 lb 9.17 oz Body Mass Index (BMI) 33.3 ABG / Lab / Microbiology Data 02/16/24 06:39 02/16/24 06:39 Microbiology: Microbiology 02/13/24 14:57 Urine, Clean Catch Urine Culture - Final Presumptive E. coli 02/11/24 18:00 Urine, Clean Catch Urine Culture - Final Mixed Gram Pos & Gram Neg Org 02/11/24 21:31 Mucosa - Nose SARS-CoV-2, Influenza & RSV (PCR) - Final D/C Instructions Discharge Diet: No restrictions Call your doctor if you observe: Fever of 101 or Higher, Shortness of breath, Dizziness, Fainting spells, Swelling in the ankles, Chest pain and Increased palpitations (irregular heartbeat) Meaningful Use Info Meaningful Use Meaningful Use Diagnoses (Choose all that apply): None applicable Ischemic Stroke Statin Dosing Therapy Reference: STATIN DOSE THERAPY REFERENCE: * Patients > 75 years receive moderate or high dose statin therapy. * Patients 75 years or YOUNGER should receive HIGH intensity statin dose unless contraindicated. You will be required to document reason for non-treatment if statin daily dose does not meet guidelines. HIGH DOSE STATIN THERAPY DAILY Atorvastatin > than or = to 40 mg Rosuvastatin > than or = to 20 mg Amlodipine + Atorvastatin > than or = to 2.5/40 mg Ezetimibe + Simvastatin 10/80 mg Simvastatin 80mg Discharge Plan Admission Admit Date/Time: 02/12/24 00:36 Attending Provider: Edison Turner Primary Care Provider: Dylan Renteria Consulting Providers: Guicho Landrum; Lindsay Cope; Kathy An; Shefali Robelro; Brittni Oliver; Ander Diaz; Naye Henriquez; Elio Crow; Paul Nesbitt; Miguelito Mustafa; Chelsey Loredo; Gordon Espinoza; Alexandra Calzada; Maude Le; Baljinder Beebe; Al Bolaños; Rafael Rodriguez; Ismael Ansari; Elle Wright; Avelina Vasquez; Trinity Wright; Jaison Giraldo Instructions Additional Instructions / Restrictions: Follow-up with your primary care doctor in 3 to 5 days to monitor your kidney function given the initiation of losartan to make sure there is improvement in your mental status with the antibiotics. Discharge Orders/Prescriptions Prescriptions: New losartan 50 mg Tablet 50 mg PO BID 30 Days Qty: 60 0RF amlodipine 10 mg Tablet 10 mg PO DAILY 30 Days Qty: 30 0RF cephalexin 500 mg Capsule 500 mg PO Q8 4 Days Qty: 12 0RF Continued rosuvastatin 20 mg tablet 20 mg PO QPM coenzyme Q10 100 mg capsule 100 mg PO QPM aspirin 81 mg tablet,delayed release (DR/EC) 81 mg PO DAILY pantoprazole 40 mg tablet,delayed release (DR/EC) 40 mg PO Q12H levothyroxine 100 mcg tablet 100 mcg PO DAILY hydrocodone-acetaminophen 5-325 mg tablet 1 tab PO BID PRN (Reason: pain) metoprolol succinate [Toprol XL] 50 mg tablet extended release 24 hr 50 mg PO DAILY Qty: 60 3RF ascorbic acid (vitamin C) [C-500] 500 mg tablet 500 mg PO DAILY Referrals / Follow Up: Dylan Renteria MD [Primary Care Provider] - Within 1 Week Disposition Disposition (needs filled in before D/C Order can be placed): Home, Self Care Charges/Coding Visit Charges Inpatient E&M: 41480 Disch Hosp >30min
== END 2024-02-16 15:19 | disposition home or self-care (01) | DRG 78 ==
LOC: ED 23:03 → PCU 02-12 04:23
PROVIDERS: Internal Medicine; Admitting Provider Internal Medicine; Emergency Provider Emergency Medicine; PCP Family Medicine; Visit Provider Family Medicine
DX: I67.4 Hypertensive encephalopathy (principal); F03.918 Unspecified dementia, unspecified severity, with other behavioral disturbance; I47.20 Ventricular tachycardia, unspecified; N30.00 Acute cystitis without hematuria; E03.9 Hypothyroidism, unspecified; I10 Essential (primary) hypertension; E66.9 Obesity, unspecified; M51.36 Other intervertebral disc degeneration, lumbar region; E78.5 Hyperlipidemia, unspecified; K21.9 Gastro-esophageal reflux disease without esophagitis; E87.6 Hypokalemia; B96.20 Unspecified Escherichia coli [E. coli] as the cause of diseases classified elsewhere; Z79.82 Long term (current) use of aspirin; Z79.899 Other long term (current) drug therapy; Z90.49 Acquired absence of other specified parts of digestive tract; Z96.659 Presence of unspecified artificial knee joint; Z96.649 Presence of unspecified artificial hip joint; Z68.33 Body mass index [BMI] 33.0-33.9, adult; R51.9 Headache, unspecified
CPT/HCPCS: 36415; 70450; 70496; 70544; 70553; 80048; 80053; 81001; 83735; 84100; 84443; 84484; 85025; 85027; 85610; 85652; 85730; 86140; 87086; 87088; 87186; 87631; 93005; 93306; 97110; 97116; 97162; 97166; 97530; 97535; 99284; A9575; J7040; J7120; Q9957; Q9967; A4216; C8929

== ENCOUNTER → 2024-02-19 | Outpatient (CLI) | payer MEDICARE, SELFPAY ==
[2024-02-19 16:10] LABS: Anion Gap 9 (5-15); BUN 20 mg/dL (7-18); BUN/Creat Ratio 24.5 RATIO (10-20); Calcium,Total 9.7 mg/dL (8.5-10.1); Chloride 109 mmol/L (98-107); Creatinine, Serum 0.82 mg/dL (0.55-1.02); EST Glomerular Filtration Rate 72 mL/min (>60); Est Glom Filt Rate - Afr Amer 87 mL/min (>60); Glucose 113 mg/dL (74-106); Magnesium 2.4 mg/dL (1.6-2.6); Sodium Level 141 mmol/L (136-145); T4 Free Direct 1.41 ng/dL (0.76-1.46)
== END | disposition home or self-care (01) ==
LOC: MFPLAB 11:11
PROVIDERS: PCP Family Medicine; Visit Provider Family Medicine
DX: E87.6 Hypokalemia (principal); E03.8 Other specified hypothyroidism
CPT/HCPCS: 36415; 80048; 83735; 84439; 84443

== ENCOUNTER → 2024-02-25 | Outpatient (CLI) | payer MEDICARE, SELFPAY ==
--- NOTE | 2024-02-25 13:08 | STRESSREP ---
Stress Test Report Pharmacologic myocardial perfusion stress test. 83-year-old lady with a history of arrhythmia Resting EKG demonstrates sinus rhythm with a rate of 72 bpm. Resting blood pressure is 148/82 mmHg. 0.4 mg of regadenoson was infused per usual protocol followed by rapid intravenous saline flush injection. Continuous EKG monitoring was performed. The maximum heart rate was 83 bpm which was 59% of max impacted heart rate the maximum workload was 1 metabolic equivalent. At rest there were no ST or T wave changes noted to suggest ischemia and at peak infusion nonspecific ST changes were noted which did not meet the criteria for ischemia. No clinical angina is noted. The final blood pressure was 130/70 mmHg. Myocardial perfusion protocol. 13.9 mCi of technetium 99m sestamibi was injected at rest. 0.4 mg of regadenoson was infused per usual protocol. At peak infusion 44.3 mCi of technetium 99m sestamibi was injected stress images were obtained stress and rest images were reconstructed and compared in the short axis vertical long and horizontal long axis. Gated images were also obtained. Perfusion SPECT analysis: Review of the stress images demonstrate normal uptake of tracer noted in all areas of the myocardium. The resting images similar demonstrated normal uptake of tracer noted in all areas of the myocardium. No areas of reversibility are noted to suggest ischemia and no previous infarct is noted. Gated SPECT analysis: The gated ejection fraction is 53%. Conclusion: Normal pharmacologic myocardial perfusion stress test. Preserved ejection fraction.
== END | disposition home or self-care (01) ==
PROVIDERS: PCP Family Medicine; Referring Provider Internal Medicine Cardiovascular Disease; Visit Provider Internal Medicine Cardiovascular Disease
DX: I47.20 Ventricular tachycardia, unspecified (principal); R94.31 Abnormal electrocardiogram [ECG] [EKG]
CPT/HCPCS: 78452; 93017; A9500; A4216; J2785

== ENCOUNTER → 2024-03-11 | Outpatient (CLI) | payer MEDICARE, SELFPAY ==
[2024-03-11 18:19] LABS: Anion Gap 7 (5-15); BUN 25 mg/dL (7-18); BUN/Creat Ratio 31.6 RATIO (10-20); Calcium,Total 9.5 mg/dL (8.5-10.1); Chloride 109 mmol/L (98-107); Creatinine, Serum 0.79 mg/dL (0.55-1.02); EST Glomerular Filtration Rate 74 mL/min (>60); Est Glom Filt Rate - Afr Amer 90 mL/min (>60); Glucose 81 mg/dL (74-106); Potassium 3.9 mmol/L (3.5-5.1); Sodium Level 140 mmol/L (136-145); Thyroid Stim Hormone (TSH) 0.071 uIU/mL (0.358-3.740)
== END | disposition home or self-care (01) ==
PROVIDERS: PCP Family Medicine; Referring Provider Internal Medicine Cardiovascular Disease; Visit Provider Internal Medicine Cardiovascular Disease
DX: I47.20 Ventricular tachycardia, unspecified (principal); I49.8 Other specified cardiac arrhythmias; I10 Essential (primary) hypertension
CPT/HCPCS: 36415; 80048; 83735; 84443

== ENCOUNTER → 2024-05-07 | Outpatient (CLI) | payer MEDICARE, SELFPAY ==
[2024-05-07 12:29] LABS: Vitamin B12 351 pg/mL (211-911)
[2024-05-07 12:34] LABS: Absolute Lymphocyte Count 1.98 X10^3/uL (0.83-4.51); Absolute Neutrophil Count 4.6 X10^3/uL (2.0-7.7); Basophil% 1.3 % (0-1); Eosinophil# 0.37 X10^3/uL; Eosinophils% 4.7 % (0-5); Hematocrit 44.7 % (37-47); Hemoglobin 14.2 g/dL (12.0-15.0); Lymphocyte # 1.98 X10^3/ul (0.83-4.51); Lymphocyte % 25.3 % (19-41); Mean Corp Hgb Conc 31.8 g/dL (32-36); Mean Corpuscular Hgb 28.6 pg (27.0-32.0); Mean Corpuscular Volume 89.9 fL (81-99); Mean Platelet Vol. 11.2 fl (6.2-12.0); Monocyte# 0.78 X10^3/uL; Monocyte% 9.9 % (0-10); NRBC Flagged by Analyzer 0 % (0-5); Neutrophil # 4.58 X10^3/uL (2.7-7.7); Neutrophil % 58.4 % (47-70); Platelet Count 272 K/mm3 (150-450); RBC Distribution Width CV 13.8 % (11.6-14.6); RBC Distribution Width SD 45.8 fl (35.1-43.9); Red Blood Count 4.97 M/mm3 (4.2-5.4); White Blood Count 7.8 K/mm3 (4.4-11.0)
[2024-05-07 12:51] LABS: ALB/GLOB Ratio 1.1 RATIO (0.9-2.4); AST(SGOT) 22 U/L (15-37); Alanine Aminotransfer ALT/SGPT 33 U/L (13-56); Albumin, Serum 3.7 g/dL (3.2-5.0); Alkaline Phosphatase 94 U/L (45-117); Anion Gap 5 (5-15); BUN 29 mg/dL (7-18); BUN/Creat Ratio 29.2 RATIO (10-20); Calcium,Total 9.1 mg/dL (8.5-10.1); Chloride 110 mmol/L (98-107); Creatinine, Serum 0.99 mg/dL (0.55-1.02); EST Glomerular Filtration Rate 57 mL/min (>60); Est Glom Filt Rate - Afr Amer 69 mL/min (>60); Free T3 2.1 pg/mL (2.18-3.98); Globulin 3.5 g/dL (2.2-4.2); Glucose 103 mg/dL (74-106); Potassium 4.4 mmol/L (3.5-5.1); Protein, Total 7.2 g/dL (6.4-8.2); Sodium Level 138 mmol/L (136-145); T4 Free Direct 0.95 ng/dL (0.76-1.46)
== END | disposition home or self-care (01) ==
LOC: MFPLAB 10:26
PROVIDERS: PCP Family Medicine; Visit Provider Family Medicine
DX: L67.9 Hair color and hair shaft abnormality, unspecified (principal); E03.9 Hypothyroidism, unspecified
CPT/HCPCS: 36415; 80053; 82607; 82746; 84439; 84443; 84481; 85025

== ENCOUNTER → 2024-06-24 | Outpatient (CLI) | payer MEDICARE, SELFPAY ==
--- NOTE | 2024-06-24 11:49 | BI_ITS ---
MAMMOGRAPHY - BILATERAL SCREENING 3-D TOMOSYNTHESIS REASON FOR EXAM: Female, 83 years old. Routine screening PERTINENT HISTORY: No significant family history. TECHNIQUE: 2-D mammograms and 3-D Tomosynthesis of the breast (s) were performed. CAD was performed. COMPARISON: 2019 FINDINGS: The breast composition is almost entirely fat. Scattered benign calcifications are seen. No dense spiculated masses or suspicious microcalcifications are identified. No architectural distortion is identified. There is no skin thickening or retraction. There has been no significant change since the prior study. BI/SCRN MAMM (CAD)W/SHANEL BILAT IMPRESSION: No mammographic signs of malignancy. Routine yearly mammograms recommended. ASSESSMENT CATEGORY: BIRADS Category 1: Negative. A letter regarding these results will be sent to the patient by the facility within 30 days. FOLLOW UP RECOMMENDATION: Yearly follow up mammogram recommended. (A) Approximately 10% of breast cancers are not detected by mammography. A normal mammogram should not delay biopsy of a clinically suspicious abnormality. Electronically Signed: Kevon Headley MD at 13:14 EST ,
== END | disposition home or self-care (01) ==
LOC: OPBI 11:49
PROVIDERS: PCP Family Medicine; Referring Provider Family Medicine; Visit Provider Family Medicine
DX: Z12.31 Encounter for screening mammogram for malignant neoplasm of breast (principal)
CPT/HCPCS: 77063; 77067

== ENCOUNTER → 2024-11-25 | Outpatient (CLI) | payer MEDICARE, SELFPAY ==
[2024-11-25 16:10] LABS: ALB/GLOB Ratio 1.7 RATIO (0.9-2.4); AST(SGOT) 23 U/L (<=31); Alanine Aminotransfer ALT/SGPT 19 U/L (<=34); Albumin, Serum 4.1 g/dL (3.4-4.8); Alkaline Phosphatase 82 U/L (35-104); Anion Gap 13 (5-15); BUN 24 mg/dL (4-19); BUN/Creat Ratio 24.7 RATIO (10-20); Calcium,Total 9.5 mg/dL (7.6-11.0); Carbon Dioxide 20.2 mmol/L (21.0-32.0); Chloride 107 mmol/L (98-108); Creatinine, Serum 0.95 mg/dL (0.70-1.20); EST Glomerular Filtration Rate 60 (>60); Globulin 2.5 g/dL (2.2-4.2); Glucose 104 mg/dL (70-99); Potassium 4.6 mmol/L (3.3-5.1); Protein, Total 6.6 g/dL (5.9-8.4); Sodium Level 139 mmol/L (133-145); Thyroid Stim Hormone (TSH) 0.876 uIU/mL (0.300-4.200); Total Bilirubin 0.67 mg/dL (0.00-1.30)
[2024-11-25 17:02] LABS: Microalbumin,Random Urine 24.5 mg/L (NO RANGE EST.); Microalbumin:Creatinine Ratio 112.4 mg/g CRE
== END | disposition home or self-care (01) ==
LOC: MFPLAB 11:45
PROVIDERS: PCP Family Medicine; Referring Provider Family Medicine; Visit Provider Family Medicine
DX: I10 Essential (primary) hypertension (principal)
CPT/HCPCS: 36415; 80053; 82043; 82570; 84443

== ENCOUNTER → 2024-12-21 | Outpatient (CLI) | payer MEDICARE, SELFPAY | END | disposition home or self-care (01) | LOC: LABSPEC 17:19 | PROVIDERS: PCP Family Medicine | DX: R35.0 Frequency of micturition (principal) | CPT/HCPCS: 87086; 87088 ==

== ENCOUNTER → 2025-02-22 | Outpatient (CLI) | payer MEDICARE, SELFPAY ==
[2025-02-22 18:16] LABS: Hematocrit 41.8 % (37-47); Hemoglobin 13.3 g/dL (12.0-15.0); Immature Granulocytes Count 0.020 X10^3/uL (0.0-0.0); Mean Corp Hgb Conc 31.8 g/dL (32-36); Mean Corpuscular Volume 88.2 fL (81-99); Mean Platelet Vol. 11.0 fl (6.2-12.0); NRBC Flagged by Analyzer 0 % (0-5); Platelet Count 228 K/mm3 (150-450); RBC Distribution Width CV 14.5 % (11.6-14.6); RBC Distribution Width SD 46.7 fl (35.1-43.9); Red Blood Count 4.74 M/mm3 (4.2-5.4); White Blood Count 6.5 K/mm3 (4.4-11.0)
[2025-02-22 18:42] LABS: Alanine Aminotransfer ALT/SGPT 21 U/L (<=34); Albumin, Serum 4.1 g/dL (3.4-4.8); Alkaline Phosphatase 80 U/L (35-104); Anion Gap 9 (5-15); BUN 32 mg/dL (4-19); BUN/Creat Ratio 33.9 RATIO (10-20); Calcium,Total 9.6 mg/dL (7.6-11.0); Carbon Dioxide 20.9 mmol/L (21.0-32.0); Chloride 107 mmol/L (98-108); Globulin 2.4 g/dL (2.2-4.2); Glucose 110 mg/dL (70-99); Potassium 4.3 mmol/L (3.3-5.1)
[2025-02-22 18:50] LABS: AST(SGOT) 19 U/L (<=31)
== END | disposition home or self-care (01) ==
LOC: MFPLAB 16:00
PROVIDERS: PCP Family Medicine; Referring Provider Family Medicine; Visit Provider Family Medicine
DX: R61 Generalized hyperhidrosis (principal); E03.9 Hypothyroidism, unspecified
CPT/HCPCS: 36415; 80053; 84439; 84443; 85025

== ENCOUNTER → 2025-04-13 | Outpatient (CLI) | payer MEDICARE, SELFPAY ==
[2025-04-13 15:59] LABS: AST(SGOT) 20 U/L (<=31); Alanine Aminotransfer ALT/SGPT 21 U/L (<=34); Albumin, Serum 4.2 g/dL (3.4-4.8); Alkaline Phosphatase 78 U/L (35-104); Bilirubin, Direct 0.26 mg/dL (0.00-0.30); Cholesterol 135 mg/dL (<=200); Globulin 2.7 g/dL (2.2-4.2); Low Density Lipoprotein Calc. 56 mg/dL; Triglycerides 90 mg/dL; Very Low Density Lipoprotein 18 mg/dL (5-40); cholesterol:hdl ratio screen 2.17
== END | disposition home or self-care (01) ==
LOC: MTLAB 11:40
PROVIDERS: PCP Family Medicine; Referring Provider Nurse Practitioner Gerontology; Visit Provider Nurse Practitioner Gerontology
DX: E78.00 Pure hypercholesterolemia, unspecified (principal)
CPT/HCPCS: 36415; 80061; 80076